=== PATIENT | female | born 1930 | race Caucasian/White ===

== ENCOUNTER 2016-04-07 11:59 | Inpatient (IN) | payer BC ==
[2016-04-07 12:10] VITALS: BMI 30.4
--- NOTE | 2016-04-07 12:56 | PDOC ---
History of Present Illness - General History Source: Patient Exam Limitations: No Limitations - History of Present Illness Initial Comments: 04/07/16 17:47 The patient is an 86-year-old female with a significant past medical history of atrial fibrillation(on Eliquis), breast cancer(1999), spinal stenosis, rheumatoid arthritis(on Prednisone), hypertension, hypothyroidism, wei's palsy , depression and anxiety who presents to the emergency department with dyspnea on exertion. She states that she recently started to feel more SOB and notes that simple activities such as getting dressed leaves her breathless. She states that she did 3 nebulizer treatments at home which alleviate her SOB. Daughter states that she contacted PCP office that prompted her to present to the ED. She also reports mild facial swelling and leg swelling which is new for her. She also reports urinary frequency. As per daughter, the patient was recently admitted to [facility] for 10 day admission for pneumonia and was discharged 1/2 on few days of abx and has been on a steroid taper, currently on 5mg of prednisone. She states that the patient was taken of Adderall and Lorazepam ( night dose) by psychiatrist because the patient was complaining of dizziness. She denies fever, chills, nausea, vomiting, diarrhea, hematochezia and constipation. She denies chest pain or orthopnea. She denies dysuria, urgency or hematuria. Allergies: Sulfa and Penicillin PCP: Dr. Beatriz Simms [facility] - Dr. Briones <Vicki Glaser - Last Filed: 04/07/16 17:47> <Irving Martínez - Last Filed: 04/07/16 18:52> - General Chief Complaint: Shortness of Breath Stated Complaint: SOB Time Seen by Provider: 04/07/16 12:19 Past History <Vicki Glaser - Last Filed: 04/07/16 17:47> - Past Medical History Anemia: Yes Asthma: Yes Cancer: Yes (LEFT BREAST) Cardiac Disorders: Yes (ATRIAL FIBRILLATION) CVA: No CHF: Yes (HX.SOB) Dementia: No Diabetes: No GI Disorders: Yes Disorders: No HTN: Yes Hypercholesterolemia: Yes Liver Disease: No Seizures: No Thyroid Disease: Yes - Surgical History Abdominal Surgery: Yes (HERNIA) Appendectomy: No Cardiac Surgery: Yes (CARDIAC CATHERIZATION-5/12) Cholecystectomy: No Lung Surgery: No Neurologic Surgery: No Orthopedic Surgery: No - Immunization History Immunization Up to Date: Yes - Psycho/Social/Smoking Cessation Hx Anxiety: Yes Suicidal Ideation: No Smoking Status: No Smoking History: Never smoked Number of Cigarettes Smoked Daily: 0 Hx Alcohol Use: No Drug/Substance Use Hx: No Substance Use Type: None Hx Substance Use Treatment: No <Irving Martínez - Last Filed: 04/07/16 18:52> - Past Medical History Allergies/Adverse Reactions: Allergies Allergy/AdvReac Type Severity Reaction Status Date / Time Penicillins Allergy Verified 04/07/16 12:07 Sulfa (Sulfonamide Allergy Rash Verified 04/07/16 12:07 Antibiotics) [Sulfa(Sulfonamide Antibiotics)] Home Medications: Ambulatory Orders Escitalopram Oxalate [Lexapro -] 10 mg PO DAILY 07/20/11 Lorazepam [Ativan] 1 mg PO BID 07/20/11 Ranitidine HCl [Zantac] 300 mg PO HS 07/20/11 Apixaban [Eliquis] 2.5 mg PO BID 06/04/15 Folic Acid 1 mg PO DAILY 06/04/15 Gabapentin [Neurontin -] 300 mg PO Q8H 06/04/15 Omeprazole [Prilosec] 20 mg PO DAILY 06/04/15 Levothyroxine [Synthroid -] 175 mcg PO DAILY@0700 tablet 06/06/15 Zolpidem Tartrate [Ambien] 5 mg PO HS PRN #0 tablet MDD 5 mg 06/06/15 Cholecalciferol (Vitamin D3) [Vitamin D3] 2,000 unit PO DAILY 02/19/16 Prednisone [Deltasone -] 5 mg PO DAILY 02/19/16 Nebivolol [Bystolic -] 5 mg PO DAILY #90 tab 02/28/16 Review of Systems - Review of Systems Able to Perform ROS?: Yes Comments:: 04/07/16 17:48 CONSTITUTIONAL: No reported: Fever, Chills, Diaphoresis, Generalized Weakness, Malaise, Loss of Appetite HEENT: No reported: Rhinorrhea, Nasal Congestion, Throat Pain, Throat Swelling, Difficulty Swallowing, Mouth Swelling, Ear Pain, Eye Pain, Visual Changes CARDIOVASCULAR: No reported: Chest Pain, Syncope, Palpitations, Irregular Heart Rate, Lightheadedness, Peripheral Edema RESPIRATORY: Reported: dyspnea on exertion, SOB, cough No reported: Orthopnea, Wheezing, Stridor, Hemoptysis GASTROINTESTINAL: No reported: Abdominal pain, Abdominal Distension, Nausea, Vomiting, Diarrhea, Constipation, Melena, Hematochezia GENITOURINARY: No reported: Dysuria, Frequency, Urgency, Hesitancy, Flank Pain, Genital Pain MUSCULOSKELETAL: No reported: Myalgia, Arthralgia, Joint Swelling, Back pain, Neck Pain SKIN: No reported: Rash, Itching, Pallor HEMEATOLOGIC/IMMUNOLOGIC: No reported: Easy Bleeding, Easy Bruising, Lymphadenopathy, Frequent infections ENDOCRINE: No reported: Unexplained Weight Gain, Unexplained Weight Loss, Heat Intolerance , Cold Intolerance NEUROLOGIC: No reported: Headache, Focal Weakness, Paresthesias, Vertigo, Lightheadedness, Unsteady Gait, Seizure, Mental Status Changes, Incontinence PSYCHIATRIC: No reported: Anxiety, Depression <Vicki Glaser - Last Filed: 04/07/16 17:47> *Physical Exam - Vital Signs Last Vital Signs Temp Pulse Resp BP Pulse Ox 98.2 F 94 H 22 149/75 98 04/07/16 12:07 04/07/16 12:07 04/07/16 12:07 04/07/16 12:04/07/16 12:21 - Physical Exam Comments: 04/07/16 17:48 GENERAL: The patient is awake, alert, and fully oriented, Nontoxic - in no acute distress. HEAD: Normocephalic, atraumatic. EYES: extraocular movements intact, sclera anicteric, conjunctiva clear. ENT: Normal voice, Moist mucous membranes. NECK: Normal range of motion, supple LUNGS: +scant crackles at the left base. Breath sounds equal, clear to auscultation bilaterally. No wheezes, no rhonchi, no rales. HEART: Regular rate and rhythm, without murmur, rub or gallop. ABDOMEN: Soft, nontender, normoactive bowel sounds. No guarding, no rebound.No CVA tenderness EXTREMITIES:+ 1+ pitting edema, no calf tenderness. Normal range of motion. No clubbing or cyanosis. No cords, erythema, or tenderness. NEUROLOGICAL: No facial asymmetry, Normal speech, PSYCH: Normal mood, normal affect. SKIN: Warm, Dry, normal turgor, <Vicki Glaser - Last Filed: 04/07/16 17:47> - Vital Signs Last Vital Signs Temp Pulse Resp BP Pulse Ox 98.2 F 94 H 22 149/75 98 04/07/16 12:07 04/07/16 12:07 04/07/16 12:07 04/07/16 12:07 04/07/16 12:21 <Irving Martínez - Last Filed: 04/07/16 18:52> Heart Score/ECG Review - ECG Impressions Comment:: 04/07/16 18:51 Twelve-lead EKG was performed and reviewed by me. Irregularly irregular Rate of [address]-T wave abnormality <Irving Martínez - Last Filed: 04/07/16 18:52> ED Treatment Course - LABORATORY CBC & Chemistry Diagram: 04/07/16 13:00 04/07/16 13:00 - ADDITIONAL ORDERS Additional order review: Laboratory Results 04/07/16 04/07/16 04/07/16 13:30 13:09 13:00 INR VBG pH 7.34 POC VBG pCO2 49.4 POC VBG pO2 74.7 H Sodium Potassium Chloride Carbon Dioxide Anion Gap BUN Creatinine Creat Clearance w eGFR Random Glucose Calcium Total Bilirubin AST ALT Alkaline Phosphatase Creatine Kinase Troponin I B-Natriuretic Peptide 1681.45 H Total Protein Albumin Urine Color Straw Urine Appearance Clear Urine pH 6.0 Ur Specific [place] 1.006 Urine Protein Negative Urine Glucose (UA) Negative Urine Ketones Negative Urine Blood Negative Urine Nitrite Negative Urine Bilirubin Negative Urine Urobilinogen Negative Ur Leukocyte Esterase Negative 04/07/16 04/07/16 13:00 13:00 INR 1.31 H VBG pH POC VBG pCO2 POC VBG pO2 Sodium 142 Potassium 4.1 Chloride 104 Carbon Dioxide 28 Anion Gap 10 BUN 18 D Creatinine 0.9 Creat Clearance w eGFR 59.09 Random Glucose 117 H D Calcium 8.9 Total Bilirubin 0.4 D AST 42 H D ALT 51 D Alkaline Phosphatase 98 D Creatine Kinase 41 Troponin I < 0.02 B-Natriuretic Peptide Total Protein 6.6 Albumin 3.6 D Urine Color Urine Appearance Urine pH Ur Specific [place] Urine Protein Urine Glucose (UA) Urine Ketones Urine Blood Urine Nitrite Urine Bilirubin Urine Urobilinogen Ur Leukocyte Esterase 04/07/16 13:00 RBC 3.48 L MCV 87.1 MCHC 31.5 L RDW 20.3 H D MPV 9.4 Neutrophils % 88.7 H Lymphocytes % 4.8 L D Monocytes % 6.0 Eosinophils % 0.2 Basophils % 0.3 <Vicki Glaser - Last Filed: 04/07/16 17:47> - LABORATORY CBC & Chemistry Diagram: 04/07/16 13:00 04/07/16 13:00 <Irving Martínez - Last Filed: 04/07/16 18:52> Medical Decision Making - Medical Decision Making 04/07/16 14:24 A call was placed to Dr. Simms at her office. Case was discussed. <Vicki Glaser - Last Filed: 04/07/16 17:47> - Medical Decision Making 04/07/16 13:16 86y afib on eliquis, breast ca, spinal stenosis, rheumatoid arthritis, hypertension, hypthyroidism sent to the ED for evaluation ALDRIDGE for the past several weeks by PMD. The pt denies any chest pain, fever/chills, increased cough, abd pain, new back pain. Pts exam only noteable for mild rales at the R base. vitals wnl differential includes chf, arrhtmia, anemia, acs, occult infection will ck labs, cxr, vbg, ua, ekg will reassess PMD: dr. simms, Cards: Dr. Briones A portion of this note was documented by scribe services under my direction. I have reviewed the details of the note, within reason, and agree with the documentation with the following case summary and management plan written by me 04/07/16 15:21 labs reviewed cxr unremarakble for acute changes case d/w in detailed with dr. Simms - she feels the pts symptoms likely secondary to titrating her steroids down too quickly. would increase her steroids up to 40mg daily, increasing her albuterol to TID, continuing her advair and starting lasix 20mg 3x a week. Dr. simms states the pt is pending fu with pulm for PFTs. If pt feeling improved, she can be discharged and she will follow up with her on tomorrow or wednesday04/07/16 16:48 pt still feeling fairly tachypneic at rest. will keep for aldridge/sob and pulm consultation will give another neb will update dr. simms and will admit to dr. prince's service. 04/07/16 17:09 case was d/w dr. prince agreed with admission Case discussed in detail with admitting physician including history, physical exam and ancillary studies. Admitting physician has assumed care for the patient, will follow all pending diagnostics and will complete the evaluation and treatment. <Irving Martínez - Last Filed: 04/07/16 18:52> *DC/Admit/Observation/Transfer - Attestations Scribe Attestion: 04/07/16 17:48 Documentation prepared by RICCARDO Schrader, acting as medical communication specialist for Irving Martínez MD. <Vicki Glaser - Last Filed: 04/07/16 17:47> - Discharge Dispostion Admit: Yes <Irving Martíenz - Last Filed: 04/07/16 18:52> Diagnosis at time of Disposition: Shortness of breath, ALDRIDGE (dyspnea on exertion) - Discharge Dispostion Condition at time of disposition: Guarded - Referrals
[2016-04-07 13:11] LABS: VENOUS BLOOD GAS HCO3 25.8 meq/L (22-29); VENOUS PH 7.34 (7.31-7.41)
[2016-04-07 13:18] LABS: BASOPHIL 0.3 % (0-2.0); EOSINOPHIL 0.2 % (0-4.5); MCH 27.4 pg (25.7-33.7); MCHC 31.5 g/dl (32.0-36.0); MEAN CELL VOLUME 87.1 fl (80-96); MEAN PLT VOLUME 9.4 fl (7.5-11.1); NEUTROPHILS 88.7 % (42.8-82.8); PLATELET COUNT 212 K/MM3 (134-434); RDW 20.3 % (11.6-15.6); WHITE BLOOD COUNT 10.7 K/mm3 (4.0-10.0)
[2016-04-07 13:39] LABS: ALBUMIN 3.6 g/dl (3.4-5.0); ANION GAP 10 (8-16); CALCIUM 8.9 mg/dL (8.5-10.1); CO2 28 mmol/L (21-32); GLUCOSE,RANDOM 117 mg/dL (74-106)
[2016-04-07 13:44] LABS: ALK PHOS 98 U/L (45-117); BILIRUBIN,TOTAL 0.4 mg/dL (0.2-1.0); CREATININE 0.9 mg/dL (0.55-1.02); SGOT/AST 42 U/L (15-37); SGPT/ALT 51 U/L (12-78); TOT PROT 6.6 g/dl (6.4-8.2); TROPONIN I < 0.02 ng/ml (0.00-0.05)
[2016-04-07 13:47] LABS: URINE APPEARANCE CLEAR; URINE BILIRUBIN NEGATIVE (NEGATIVE); URINE BLOOD NEGATIVE (NEGATIVE); URINE COLOR STRAW; URINE GLUCOSE (UA) NEGATIVE (NEGATIVE); URINE KETONE NEGATIVE (NEGATIVE); URINE LEUK ESTERASE NEGATIVE (NEGATIVE); URINE NITRITE NEGATIVE (NEGATIVE); URINE PROTEIN NEGATIVE (NEGATIVE); URINE UROBILINOGEN NEGATIVE E.U./dl (0.2-1.0)
[2016-04-07 14:00] LABS: INR 1.31 (0.82-1.09); PROTHROMBIN TIME (PATIENT) 14.5 SEC (9.98-11.88)
[2016-04-07 14:39] LABS: THYROID STIMULATING HORMONE 0.59 uIU/ml (0.358-3.74)
--- NOTE | 2016-04-07 15:02 | EKG ---
Test Reason : Blood Pressure : / mmHG Vent. Rate : 087 BPM Atrial Rate : 159 BPM P-R Int : 000 ms QRS Dur : 068 ms QT Int : 370 ms P-R-T Axes : 000 045 -09 degrees QTc Int : 445 ms ATRIAL FIBRILLATION NONSPECIFIC ST AND T WAVE ABNORMALITY ABNORMAL ECG WHEN COMPARED WITH ECG OF 19-FEB-2016 11:48, ATRIAL FIBRILLATION HAS REPLACED SINUS RHYTHM CLINICAL CORRELATION IS RECOMMENDED Confirmed by YOVANY GRIFFITHS, SERENITY ([id number]) on 04/07/2016 3:02:22 PM Referred By: Confirmed By:SERENITY PEDROZA MD
[2016-04-07] MEDS ORDERED: methylPREDNISolone NA SUCC 125 MG/2 ML VIAL IVPB ONE (15:18)
[2016-04-07] MEDS ORDERED: methylPREDNISolone NA SUCC 125 MG/2 ML VIAL ONE (15:19)
[2016-04-07] MEDS ORDERED: ALBUTEROL SO4 2.5/IPRATROPIUM 0.5 INH SOL 3 ML VIAL.NEB. NEB ONE (16:48)
[2016-04-07] MEDS ORDERED: LORazepam 1 MG TABLET PO PRN (18:04)
--- NOTE | 2016-04-07 22:15 | HP ---
Admitting History and Physical - Primary Care Physician PCP: Jessica Newsome S - Admission Chief Complaint: SOB DU History of Present Illness: The patient is an 86-year-old female with a significant past medical history of atrial fibrillation(on Eliquis), breast cancer(1999), spinal stenosis, rheumatoid arthritis(on Prednisone), hypertension, hypothyroidism, wei's palsy , depression and anxiety who presents to the emergency department with dyspnea on exertion. She states that she recently started to feel more SOB and notes that simple activities such as getting dressed leaves her breathless. She states that she did 3 nebulizer treatments at home which alleviate her SOB. Daughter states that she contacted PCP office that prompted her to present to the ED. She also reports mild facial swelling and leg swelling which is new for her. She also reports urinary frequency. As per daughter, the patient was recently admitted to [facility] for 10 day admission for pneumonia and was discharged 1/2 on few days of abx and has been on a steroid taper, currently on 5mg of prednisone. She states that the patient was taken off Adderall and Lorazepam ( night dose) by psychiatrist because the patient was complaining of dizziness. She denies fever, chills, nausea, vomiting, diarrhea, hematochezia and constipation. She denies chest pain or orthopnea. She denies dysuria, urgency or hematuria. Allergies: Sulfa and Penicillin PCP: Dr. Beatriz Simms History Source: Patient, Family Member, Medical Record Limitations to Obtaining History: No Limitations - Past Medical History Cardiovascular: Yes: AFIB, CAD, HTN, Hyperlipdemia Heme/Onc: Yes: Cancer Psych: Yes: Anxiety, Depression, Other (insomnia) Musculoskeletal: Yes: Osteoarthritis Rheumatology: Yes: Rheumatoid Arthritis Endocrine: Yes: Diabetes Mellitus - Smoking History Smoking history: Never smoked Aproximately how many cigarettes per day: 0 - Alcohol/Substance Use Hx Alcohol Use: No History of Substance Use: reports: None - Social History Usual Living Arrangement: Yes: With Child ADL: Independent History of Recent Travel: No Home Medications - Allergies Allergies/Adverse Reactions: Allergies Allergy/AdvReac Type Severity Reaction Status Date / Time Penicillins Allergy Verified 04/07/16 12:07 Sulfa (Sulfonamide Allergy Rash Verified 04/07/16 12:07 Antibiotics) [Sulfa(Sulfonamide Antibiotics)] - Home Medications Home Medications: Ambulatory Orders Escitalopram Oxalate [Lexapro -] 10 mg PO DAILY 07/20/11 Lorazepam [Ativan] 1 mg PO BID 07/20/11 Ranitidine HCl [Zantac] 300 mg PO HS 07/20/11 Apixaban [Eliquis] 2.5 mg PO BID 06/04/15 Folic Acid 1 mg PO DAILY 06/04/15 Gabapentin [Neurontin -] 300 mg PO Q8H 06/04/15 Omeprazole [Prilosec] 20 mg PO DAILY 06/04/15 Levothyroxine [Synthroid -] 175 mcg PO DAILY@0700 tablet 06/06/15 Zolpidem Tartrate [Ambien] 5 mg PO HS PRN #0 tablet MDD 5 mg 06/06/15 Cholecalciferol (Vitamin D3) [Vitamin D3] 2,000 unit PO DAILY 02/19/16 Prednisone [Deltasone -] 5 mg PO DAILY 02/19/16 Nebivolol [Bystolic -] 5 mg PO DAILY #90 tab 02/28/16 Family Disease History - Family Disease History Family Disease History: Heart Disease: Father Review of Systems - Review of Systems Constitutional: denies: Chills, Fever, Lethargy Eyes: denies: Blind Spots, Blurred Vision, Double Vision HENT: denies: Ear Pain Neck: denies: Stiffness, Tenderness Cardiovascular: reports: Shortness of Breath. denies: Chest Pain, Edema, Palpitations Respiratory: reports: Cough (occasional dry), Exercise Intolerance, SOB, SOB on Exertion. denies: Orthopnea, PND, Wheezing Gastrointestinal: denies: Abdominal Pain, Bloating, Constipation, Diarrhea, Vomiting Genitourinary: denies: Discharge, Dysuria, Flank Pain Musculoskeletal: denies: Back Pain, Extremity Pain Integumentary: denies: Pallor, Pruritis Neurological: reports: Dizziness (occasional), Unsteady Gait. denies: Change in LOC, Change in Speech, Confusion, Headache, Seizure, Syncope Hematology/Lymphatic: denies: Easily Bruised, Excessive Bleeding Psychiatric: reports: Altered Sleep Pattern, Anxiety. denies: Depression, Suicidal Physical Examination Vital Signs: Vital Signs Temperature 98.2 F 04/07/16 22:11 Pulse Rate 92 H 04/07/16 19:01 Respiratory Rate 18 04/07/16 22:11 Blood Pressure 148/91 04/07/16 22:11 O2 Sat by Pulse Oximetry (%) 98 04/07/16 19:01 Findings/Remarks: daughter at bedside Constitutional: Yes: No Distress, Calm Eyes: Yes: Conjunctiva Clear HENT: Yes: Atraumatic Neck: Yes: Supple Cardiovascular: Yes: Regular Rate and Rhythm Respiratory: Yes: CTA Bilaterally Gastrointestinal: Yes: Soft. No: Distention, Tenderness Renal/: No: CVA Tenderness - Left, CVA Tenderness - Right Musculoskeletal: No: Joint Stiffness, Joint Swelling Extremities: No: Cold, Cool, Cyanosis Edema: No Peripheral Pulses WNL: Yes Integumentary: No: Rash, Venous Stasis Changes Neurological: Yes: WNL, Alert, Oriented ...Motor Strength: WNL Psychiatric: Yes: WNL, Alert, Oriented. No: Agitated, Suicidal Ideation Imaging - Results Chest X-ray: Report Reviewed Assessment/Plan The patient is an 86-year-old female with a significant past medical history of atrial fibrillation(on Eliquis), breast cancer(1999), spinal stenosis, rheumatoid arthritis(on Prednisone), hypertension, hypothyroidism, wei's palsy , depression and anxiety who presents to the emergency department with dyspnea on exertion. s/p recent PNA improved with IV ATB and nebs in ER no signs of CHF or fluid overload on exam or CXR IV steroids, nebs cardiology and pulmonary eval falls DVT PFX might need home O2 d/w pt and daughter, d/w pt's PCP solo [place]
[2016-04-07] MEDS: GABAPENTIN 300 MG CAPSULE (FP) PO SCH (22:17)
[2016-04-07] MEDS: RANITIDINE HCL 150 MG TABLET (FP) PO SCH (22:17)
[2016-04-07] MEDS: APIXABAN 2.5 MG TABLET PO SCH (22:17)
[2016-04-07] MEDS: methylPREDNISolone NA SUCC 40 MG/1 ML VIAL IVPB SCH (22:17)
[2016-04-07] MEDS: ZOLPIDEM TARTRATE 5 MG TABLET PO PRN (22:20)
[2016-04-07] MEDS: ALBUTEROL SO4 0.083% IH SOL 2.5 MG/3 ML VIAL.NEB. NEB PRN (23:21)
[2016-04-08] MEDS: methylPREDNISolone NA SUCC 40 MG/1 ML VIAL IVPB SCH ×4 (02:38→21:45)
[2016-04-08] MEDS ORDERED: LEVOTHYROXINE NA 75 MCG TABLET (FP) ONE (05:55)
[2016-04-08] MEDS ORDERED: LEVOTHYROXINE NA 100 MCG TABLET (FP) ONE (05:55)
[2016-04-08] MEDS: ALBUTEROL SO4 0.083% IH SOL 2.5 MG/3 ML VIAL.NEB. NEB PRN ×3 (06:00→22:07)
[2016-04-08] MEDS: LEVOTHYROXINE 75 MCG, LEVOTHYROXINE 100 MCG PO SCH (06:02)
[2016-04-08] MEDS: GABAPENTIN 300 MG CAPSULE (FP) PO SCH ×3 (06:02→21:46)
[2016-04-08 06:58] LABS: BASOPHIL 0.8 % (0-2.0); MCH 27.5 pg (25.7-33.7); MCHC 31.6 g/dl (32.0-36.0); MEAN PLT VOLUME 9.6 fl (7.5-11.1); NEUTROPHILS 92.1 % (42.8-82.8); PLATELET COUNT 241 K/MM3 (134-434); RDW 19.9 % (11.6-15.6); WHITE BLOOD COUNT 7.1 K/mm3 (4.0-10.0)
[2016-04-08] MEDS ORDERED: LEVOTHYROXINE NA 100 MCG TABLET (FP) PO SCH (07:00)
[2016-04-08 07:02] LABS: ALBUMIN 3.6 g/dl (3.4-5.0)
[2016-04-08 07:03] LABS: BILIRUBIN,TOTAL 0.4 mg/dL (0.2-1.0); TOT PROT 6.6 g/dl (6.4-8.2)
[2016-04-08] MEDS ORDERED: PT OWN MED DRAWER 7, Y5N ONE ×2 (08:59→21:40)
[2016-04-08] MEDS: APIXABAN 2.5 MG TABLET PO SCH ×2 (09:05→21:46)
[2016-04-08] MEDS: PANTOPRAZOLE 20 MG TABLET (FP) PO SCH (09:05)
[2016-04-08] MEDS: CHOLECALCIFEROL (VITAMIN D3) 1,000 UNIT TABLET (FP) PO SCH (09:05)
[2016-04-08] MEDS: ESCITALOPRAM OXALATE 10 MG TABLET (FP) PO SCH (09:05)
[2016-04-08] MEDS: FOLIC ACID 1 MG TABLET (FP) PO SCH (09:05)
--- NOTE | 2016-04-08 10:15 | PN ---
Progress Note, Physician History of Present Illness: Pt is breathing bbetter than yesterday ( less DU, cough). Pt. w/o CP, palp., dizziness, abd pain. - Current Medication List Current Medications: Active Medications Albuterol Sulfate (Ventolin 0.083% Nebulizer Soln -) 1 amp NEB Q6H PRN PRN Reason: SHORT OF BREATH/WHEEZING Last Admin: 04/08/16 06:00 Dose: 1 amp Apixaban (Eliquis -) 2.5 mg PO BID [facility] Last Admin: 04/08/16 09:05 Dose: 2.5 mg Cholecalciferol (Vitamin D3 -) 2,000 unit PO DAILY [facility] Last Admin: 04/08/16 09:05 Dose: 2,000 unit Escitalopram Oxalate (Lexapro -) 10 mg PO DAILY [facility] Last Admin: 04/08/16 09:05 Dose: 10 mg Folic Acid (Folic Acid -) 1 mg PO DAILY [facility] Last Admin: 04/08/16 09:05 Dose: 1 mg Gabapentin (Neurontin -) 300 mg PO TID [facility] Last Admin: 04/08/16 06:02 Dose: 300 mg Levothyroxine Sodium 75 mcg/ (Levothyroxine Sodium 100 mcg) 175 mcg PO DAILY@ 0700 [facility] Last Admin: 04/08/16 06:02 Dose: 175 mcg Lorazepam (Ativan -) 1 mg PO BID PRN PRN Reason: ANXIETY Methylprednisolone Sodium Succinate (Solu-Medrol -) 40 mg IVPB Q6H-IV [facility] Last Admin: 04/08/16 09:06 Dose: 40 mg Nebivolol (Bystolic -) 5 mg PO DAILY [facility] Pantoprazole Sodium (Protonix -) 20 mg PO DAILY [facility] Last Admin: 04/08/16 09:05 Dose: 20 mg Ranitidine HCl (Zantac -) 300 mg PO HS [facility] Last Admin: 04/07/16 22:17 Dose: 300 mg Zolpidem Tartrate (Ambien -) 5 mg PO HS PRN PRN Reason: INSOMNIA Last Admin: 04/07/16 22:20 Dose: 5 mg - Objective Vital Signs: Vital Signs Temperature 98.3 F 04/08/16 05:59 Pulse Rate 111 H 04/08/16 09:42 Respiratory Rate 16 04/08/16 05:59 Blood Pressure 160/89 04/08/16 05:59 O2 Sat by Pulse Oximetry (%) 97 04/08/16 09:42 Constitutional: Yes: No Distress, Calm Neck: Yes: Supple Cardiovascular: Yes: Regular Rate and Rhythm, S1, S2 Respiratory: Yes: Regular, Rales Gastrointestinal: Yes: Normal Bowel Sounds, Soft. No: Tenderness Neurological: Yes: Alert, Oriented Labs: CBC, BMP 04/08/16 05:35 04/08/16 05:35 INR, PTT INR 1.31 (0.82-1.09) H 04/07/16 13:00 Problem List - Problems (1) Acute bronchitis with COPD Assessment/Plan: on IV steroids Pulmonary consult Code(s): J44.0 - CHRONIC OBSTRUCTIVE PULMON DISEASE W ACUTE LOWER RESP INFCT (2) CAD (coronary artery disease) Assessment/Plan: Pt. with elevated BNP. Last ECHO report was reviewed, normal LV function; Probable Diastolic Heart failure Cardio consult for further eval.. Code(s): I25.10 - ATHSCL HEART DISEASE OF [place] CORONARY ARTERY W/O ANG PCTRS (3) A-fib Assessment/Plan: on AC Code(s): I48.91 - UNSPECIFIED ATRIAL FIBRILLATION (4) Hypertension Assessment/Plan: cont. current meds Code(s): I10 - ESSENTIAL (PRIMARY) HYPERTENSION Qualifiers: Hypertension type: essential hypertension Qualified Code(s): I10 - Essential (primary) hypertension (5) Pulmonary hypertension Code(s): I27.2 - OTHER SECONDARY PULMONARY HYPERTENSION (6) Anemia Assessment/Plan: Chronic Probable of chronic disease- RA; to f/u Iron studies Code(s): D64.9 - ANEMIA, UNSPECIFIED (7) Rheumatoid arthritis Assessment/Plan: On chronic Prednisone ( 5 mg daily) Code(s): M06.9 - RHEUMATOID ARTHRITIS, UNSPECIFIED Qualifiers: Rheumatoid arthritis location: unspecified site Assessment/Plan AM labs
[2016-04-08] MEDS: NEBIVOLOL 5 MG TABLET (FP) PO SCH (10:59)
--- NOTE | 2016-04-08 12:31 | CON.CARD ---
Consult Consult Specialty:: Cardiology Referred by:: Jaiden Newsome MD Reason for Consultation:: Dyspnea - History of Present Illness Chief Complaint: Dyspnea History of Present Illness: The patient is a 86-year old, with significant past medical history of paroxysmal Afib on NOAC, Breast Ca (1999), Spinal Stenosis, RA, Gastritis, HTN, hypothyroidism, and anxiety who presented with light-headedness exacerbated by bending over, gait instabilty and mechanical falls all since resolved, she denies chest pain, near or true syncope, palpitations, orthopnea, PND or LE edema. - Past Medical History Cardio/Vascular: Yes: AFIB, CAD, HTN, Hyperlipdemia ...: No Psych: Yes: Anxiety, Depression, Other (insomnia) Musculoskeletal: Yes: Osteoarthritis Rheumatology: Yes: Rheumatoid Arthritis Endocrine: Yes: Diabetes Mellitus - Alcohol/Substance Use Hx Alcohol Use: No History of Substance Use: reports: None - Smoking History Smoking history: Never smoked Have you smoked in the past 12 months: No Aproximately how many cigarettes per day: 0 - Social History ADL: Independent History of Recent Travel: No Home Medications - Allergies Allergies/Adverse Reactions: Allergies Allergy/AdvReac Type Severity Reaction Status Date / Time Penicillins Allergy Verified 04/07/16 12:07 Sulfa (Sulfonamide Allergy Rash Verified 04/07/16 12:07 Antibiotics) [Sulfa(Sulfonamide Antibiotics)] - Home Medications Home Medications: Ambulatory Orders Escitalopram Oxalate [Lexapro -] 10 mg PO DAILY 07/20/11 Lorazepam [Ativan] 1 mg PO BID 07/20/11 Ranitidine HCl [Zantac] 300 mg PO HS 07/20/11 Apixaban [Eliquis] 2.5 mg PO BID 06/04/15 Folic Acid 1 mg PO DAILY 06/04/15 Gabapentin [Neurontin -] 300 mg PO Q8H 06/04/15 Omeprazole [Prilosec] 20 mg PO DAILY 06/04/15 Levothyroxine [Synthroid -] 175 mcg PO DAILY@0700 tablet 06/06/15 Zolpidem Tartrate [Ambien] 5 mg PO HS PRN #0 tablet MDD 5 mg 06/06/15 Cholecalciferol (Vitamin D3) [Vitamin D3] 2,000 unit PO DAILY 02/19/16 Prednisone [Deltasone -] 5 mg PO DAILY 02/19/16 Nebivolol [Bystolic -] 5 mg PO DAILY #90 tab 02/28/16 Family Disease History - Family Disease History Family Disease History: Heart Disease: Father Review of Systems - Review of Systems Cardiovascular: reports: Shortness of Breath Vital Signs: Vital Signs Temperature 98.3 F 04/08/16 05:59 Pulse Rate 111 H 04/08/16 09:42 Respiratory Rate 16 04/08/16 05:59 Blood Pressure 160/89 04/08/16 05:59 O2 Sat by Pulse Oximetry (%) 97 04/08/16 09:42 Constitutional: Yes: No Distress, Calm Neck: Yes: Supple Respiratory: Yes: Regular, Diminished, On Nasal O2 Gastrointestinal: Yes: Normal Bowel Sounds, Soft, Abdomen, Obese Cardiovascular: Yes: Pulse Irregular JVD: No Carotid Bruit: No Heart Sounds: Yes: S1, S2 Murmur: Yes: Systolic Murmur, Grade 1 Edema: No - Other Data Labs, Other Data: CBC, BMP 04/08/16 05:35 04/08/16 05:35 INR, PTT INR 1.31 (0.82-1.09) H 04/07/16 13:00 Afib c/w previous 12/10/15, now in afib Ejection Fraction %: LVEF > or = 40 % Imaging - Results Chest X-ray: Report Reviewed (Right mid lung ATX) Cat Scan: Report Reviewed (Improved RUL PNA) Problem List - Problems (1) Acute bronchitis with COPD Code(s): J44.0 - CHRONIC OBSTRUCTIVE PULMON DISEASE W ACUTE LOWER RESP INFCT (2) Shortness of breath Code(s): R06.02 - SHORTNESS OF BREATH (3) A-fib Code(s): I48.91 - UNSPECIFIED ATRIAL FIBRILLATION Qualifiers: Atrial fibrillation type: persistent Qualified Code(s): I48.1 - Persistent atrial fibrillation (4) Hypertension Code(s): I10 - ESSENTIAL (PRIMARY) HYPERTENSION Qualifiers: Hypertension type: essential hypertension Qualified Code(s): I10 - Essential (primary) hypertension (5) Hypothyroidism Code(s): E03.9 - HYPOTHYROIDISM, UNSPECIFIED Qualifiers: Hypothyroidism type: unspecified Qualified Code(s): E03.9 - Hypothyroidism, unspecified (6) Rheumatoid arthritis Code(s): M06.9 - RHEUMATOID ARTHRITIS, UNSPECIFIED Qualifiers: Rheumatoid arthritis location: unspecified site (7) Polymyalgia rheumatica Code(s): M35.3 - POLYMYALGIA RHEUMATICA Assessment/Plan 06/05/2015 Echo shows normal LV size and fxn, mod CHEKO, mod TR, mild MR, RVSP 40- 50 mmHg, 06/05/2015 Holter: SR freq PAC 1. AE COPD improving 2. Dysequilibrium, gait disturbance, orthostasis, mechanical falls referable to medication effect (ambien, ativan, amphetamine) 3. Persistent atrial fibrillation 4. Diastolic dysfunction, euvolemic 5. HTN/HCVD 6. RA maintained on MTX, prednisone 7. Spinal stenosis, compression fractures 8. Hypothyroidism 9. Anxiety P:1. BD, IV steroids, O2 as needed to maintain saO2 2. Continue Bystolic 5 qd, Eliquis 2.5 bid 3. PT, gait training, fall precautions 4. DVT and GI prophylaxis 5. Thank you for consultative opportunity
--- NOTE | 2016-04-08 13:37 | PN ---
Progress Note (short form) - Note Progress Note: PULMONARY CONSULTATION DICTATED 04/08/16 IMP ACUTE ASTHMATIC BRONCHITIS RECENT PNEUMONIA AFIB HTN PULMONARY HTN DIASTOLIC HF ANXIETY RA PLAN IV STEROIDS INHALED BRONCHODILATORS NASAL O2 ANTICOAGULATION F/U CHEST X-RAY DR QUINN Problem List - Problems (1) Acute bronchitis with COPD Code(s): J44.0 - CHRONIC OBSTRUCTIVE PULMON DISEASE W ACUTE LOWER RESP INFCT (2) Anemia Code(s): D64.9 - ANEMIA, UNSPECIFIED (3) CAD (coronary artery disease) Code(s): I25.10 - ATHSCL HEART DISEASE OF [place] CORONARY ARTERY W/O ANG PCTRS Qualifiers: Coronary Disease-Associated Artery/Lesion type: [place] artery [place] vs. transplanted heart: [place] heart Associated angina: without angina Qualified Code(s): I25.10 - Atherosclerotic heart disease of [place] coronary artery without angina pectoris (4) DU (dyspnea on exertion) Code(s): R06.09 - OTHER FORMS OF DYSPNEA (5) Pulmonary hypertension Code(s): I27.2 - OTHER SECONDARY PULMONARY HYPERTENSION (6) Shortness of breath Code(s): R06.02 - SHORTNESS OF BREATH (7) A-fib Code(s): I48.91 - UNSPECIFIED ATRIAL FIBRILLATION Qualifiers: Atrial fibrillation type: persistent Qualified Code(s): I48.1 - Persistent atrial fibrillation (8) History of breast cancer Code(s): Z85.3 - PERSONAL HISTORY OF MALIGNANT NEOPLASM OF BREAST (9) Hypertension Code(s): I10 - ESSENTIAL (PRIMARY) HYPERTENSION Qualifiers: Hypertension type: essential hypertension Qualified Code(s): I10 - Essential (primary) hypertension (10) Rheumatoid arthritis Code(s): M06.9 - RHEUMATOID ARTHRITIS, UNSPECIFIED Qualifiers: Rheumatoid arthritis location: unspecified site (11) Asthmatic bronchitis with exacerbation Code(s): J45.901 - UNSPECIFIED ASTHMA WITH (ACUTE) EXACERBATION
--- NOTE | 2016-04-08 16:48 | CONS ---
DATE OF CONSULTATION: 04/08/2016 PULMONARY CONSULTATION REFERRING PHYSICIAN: Jessica Newsome M.D. HISTORY OF PRESENT ILLNESS: The patient is an 86-year-old white female known to me from previous hospitalizations. Past medical history includes atrial fibrillation maintained on Eliquis. Breast CA. History of spinal stenosis. Recent pneumonia in January 2016, hospitalized [facility], Rheumatoid arthritis maintained on prednisone. Hypertension. Hypothyroidism. Escalante's palsy. Depression. Anxiety. Nonsmoker. Admitted to [facility] with complaint of increasing shortness of breath and dyspnea on exertion x1 week. Patient states she started developing the above symptoms. She went to a PCP, which is why started inhaled bronchodilator and steroids with some clinical improvement. As her symptoms worsened, at which time she presented to the emergency room. Denies any chest pain, nausea, vomiting, diaphoresis, nausea, hemoptysis. She also complains of some mild facial swelling and lower extremity edema, which was new. Also complained of some urinary frequency. She denies any recent travel. There is no history of respiratory failure in the past with ventilatory support. She denies a history of asthma or COPD. PAST MEDICAL HISTORY: Again includes atrial fibrillation, breast CA, spinal stenosis, rheumatoid arthritis, hypertension, hypothyroidism, Escalante's palsy, depression/anxiety. REVIEW OF SYSTEMS: Positive cough. Positive shortness of breath. Positive wheezing. No chest pain. No palpitations. No nausea. No vomiting. No hemoptysis. CURRENT MEDICATIONS: Include Solu-Medrol 40 q.6, Eliquis, Neurontin, lexapro, Ambien, Ativan, albuterol, Bystolic, Zantac, Protonix, Levaquin, folic acid, and vitamin D3. PHYSICAL EXAMINATION: General: The patient is an elderly white female otherwise alert in no acute distress. She is currently afebrile. Vital signs: Heart rate is 104, blood pressure 136/78, respiratory rate 22, and O2 saturation is 97% on 2 L. HEENT: Head is normocephalic, atraumatic. Neck: Supple. Heart: Irregularly irregular. S1, S2. Chest: Scattered bilateral wheezes. Abdomen: Soft. Bowel sounds positive. Extremities: No cyanosis. There is 1+ edema. LABORATORY: WBC is 7.1, hemoglobin 9.6, hematocrit 30.4, platelet count of 241, 000. INR is 1.31. Chemistries: BUN 22, creatinine 11, BNP 1681. Chest x-ray reveals cardiomegaly, mildly increased markings bilaterally, residual atelectatic changes with right middle lung field. IMPRESSION: Acute asthmatic bronchitis. 2. Atrial fibrillation. 3. Hypertension, hypertensive cardiovascular disease. 4. Recent pneumonia. 5. Hypothyroidism. 6. Rheumatoid arthritis on prednisone and methotrexate. 7. Pulmonary hypertension. 8. Anxiety. PLAN: IV steroids. Inhaled bronchodilator. Supplemental O2. Continue anticoagulation as per cardiology for anticoagulation. DVT prophylaxis. LEMUEL QUINN M.D. [id number] MTDD
[2016-04-08] MEDS: TIOTROPIUM BROMIDE 18 MCG/INH (DEVICE W/ 5 CAPSULES) IH SCH (16:53)
[2016-04-08] MEDS: BUDESONIDE/FORMETEROL FUMARATE 160/4.5 mcg INHALER IH SCH ×2 (16:53→21:46)
[2016-04-08] MEDS: ZOLPIDEM TARTRATE 5 MG TABLET PO PRN (21:46)
[2016-04-08] MEDS: RANITIDINE HCL 150 MG TABLET (FP) PO SCH (21:46)
[2016-04-09] MEDS: methylPREDNISolone NA SUCC 40 MG/1 ML VIAL IVPB SCH ×3 (02:33→17:58)
[2016-04-09] MEDS ORDERED: LEVOTHYROXINE NA 75 MCG TABLET (FP) ONE (06:12)
[2016-04-09] MEDS ORDERED: LEVOTHYROXINE NA 100 MCG TABLET (FP) ONE (06:12)
[2016-04-09] MEDS: LEVOTHYROXINE 75 MCG, LEVOTHYROXINE 100 MCG PO SCH (06:14)
[2016-04-09] MEDS: GABAPENTIN 300 MG CAPSULE (FP) PO SCH ×3 (06:14→22:16)
[2016-04-09 07:34] LABS: MCH 27.3 pg (25.7-33.7); MCHC 31.5 g/dl (32.0-36.0); MEAN CELL VOLUME 86.6 fl (80-96); MEAN PLT VOLUME 9.6 fl (7.5-11.1); PLATELET COUNT 223 K/MM3 (134-434); RDW 19.8 % (11.6-15.6); WHITE BLOOD COUNT 13.2 K/mm3 (4.0-10.0)
[2016-04-09 08:03] LABS: CALCIUM 8.9 mg/dL (8.5-10.1)
[2016-04-09] MEDS ORDERED: PT OWN MED DRAWER 7, Y5N ONE (09:17)
[2016-04-09] MEDS: FOLIC ACID 1 MG TABLET (FP) PO SCH (09:29)
[2016-04-09] MEDS: BUDESONIDE/FORMETEROL FUMARATE 160/4.5 mcg INHALER IH SCH ×2 (09:29→22:23)
[2016-04-09] MEDS: APIXABAN 2.5 MG TABLET PO SCH ×2 (09:29→22:16)
[2016-04-09] MEDS: CHOLECALCIFEROL (VITAMIN D3) 1,000 UNIT TABLET (FP) PO SCH (09:29)
[2016-04-09] MEDS: PANTOPRAZOLE 20 MG TABLET (FP) PO SCH (09:29)
[2016-04-09] MEDS: NEBIVOLOL 5 MG TABLET (FP) PO SCH (09:30)
[2016-04-09] MEDS: TIOTROPIUM BROMIDE 18 MCG/INH (DEVICE W/ 5 CAPSULES) IH SCH (09:30)
[2016-04-09] MEDS: ESCITALOPRAM OXALATE 10 MG TABLET (FP) PO SCH (09:36)
--- NOTE | 2016-04-09 11:40 | PN ---
[id number], abd pain. - Current Medication List Current Medications: Active Medications Albuterol Sulfate (Ventolin 0.083% Nebulizer Soln -) 1 amp NEB Q6H PRN PRN Reason: SHORT OF BREATH/WHEEZING Last Admin: 04/08/16 22:07 Dose: 1 amp Apixaban (Eliquis -) 2.5 mg PO BID [facility] Last Admin: 04/09/16 09:29 Dose: 2.5 mg Budesonide/Formoterol Fumarate (Symbicort 160/4.5mcg -) 2 puff IH BID [facility] Last Admin: 04/09/16 09:29 Dose: 2 puff Cholecalciferol (Vitamin D3 -) 2,000 unit PO DAILY [facility] Last Admin: 04/09/16 09:29 Dose: 2,000 unit Escitalopram Oxalate (Lexapro -) 10 mg PO DAILY [facility] Last Admin: 04/09/16 09:36 Dose: 10 mg Folic Acid (Folic Acid -) 1 mg PO DAILY [facility] Last Admin: 04/09/16 09:29 Dose: 1 mg Gabapentin (Neurontin -) 300 mg PO TID [facility] Last Admin: 04/09/16 06:14 Dose: 300 mg Levothyroxine Sodium 75 mcg/ (Levothyroxine Sodium 100 mcg) 175 mcg PO DAILY@ 0700 [facility] Last Admin: 04/09/16 06:14 Dose: 175 mcg Lorazepam (Ativan -) 1 mg PO BID PRN PRN Reason: ANXIETY Methylprednisolone Sodium Succinate (Solu-Medrol -) 40 mg IVPB Q6H-IV [facility] Last Admin: 04/09/16 09:29 Dose: 40 mg Nebivolol (Bystolic -) 5 mg PO DAILY [facility] Last Admin: 04/09/16 09:30 Dose: 5 mg Pantoprazole Sodium (Protonix -) 20 mg PO DAILY [facility] Last Admin: 04/09/16 09:29 Dose: 20 mg Ranitidine HCl (Zantac -) 300 mg PO HS [facility] Last Admin: 04/08/16 21:46 Dose: 300 mg Tiotropium [place] (Spiriva -) 1 puff IH DAILY [facility] Last Admin: 04/09/16 09:30 Dose: 1 puff Zolpidem Tartrate (Ambien -) 5 mg PO HS PRN PRN Reason: INSOMNIA Last Admin: 04/08/16 21:46 Dose: 5 mg - Objective Vital Signs: Vital Signs Temperature 97.9 F 04/09/16 06:48 Pulse Rate 92 H 04/09/16 06:48 Respiratory Rate 18 04/09/16 06:48 Blood Pressure 131/87 04/09/16 06:48 O2 Sat by Pulse Oximetry (%) 97 04/08/16 21:00 Constitutional: Yes: No Distress, Calm Cardiovascular: Yes: Regular Rate and Rhythm, S1, S2 Respiratory: Yes: Regular, Wheezes (expiratory) Gastrointestinal: Yes: Normal Bowel Sounds, Soft. No: Palpable Mass, Tenderness Edema: No Labs: CBC, BMP 04/09/16 05:35 04/09/16 05:35 INR, PTT INR 1.31 (0.82-1.09) H 04/07/16 13:00 Problem List - Problems (1) Acute bronchitis with COPD Assessment/Plan: on IV steroids- nella per pulmonary Pulmonary consult appreciated Code(s): J44.0 - CHRONIC OBSTRUCTIVE PULMON DISEASE W ACUTE LOWER RESP INFCT (2) CAD (coronary artery disease) Assessment/Plan: Pt. with elevated BNP. Last ECHO report was reviewed, normal LV function; Probable Diastolic Heart failure Cardio consult for further eval.. Code(s): I25.10 - ATHSCL HEART DISEASE OF [place] CORONARY ARTERY W/O ANG PCTRS Qualifiers: Coronary Disease-Associated Artery/Lesion type: [place] artery [place] vs. transplanted heart: [place] heart Associated angina: without angina Qualified Code(s): I25.10 - Atherosclerotic heart disease of [place] coronary artery without angina pectoris (3) A-fib Assessment/Plan: on AC Code(s): I48.91 - UNSPECIFIED ATRIAL FIBRILLATION Qualifiers: Atrial fibrillation type: persistent Qualified Code(s): I48.1 - Persistent atrial fibrillation (4) Hypertension Assessment/Plan: cont. current meds Code(s): I10 - ESSENTIAL (PRIMARY) HYPERTENSION Qualifiers: Hypertension type: essential hypertension Qualified Code(s): I10 - Essential (primary) hypertension (5) Pulmonary hypertension Code(s): I27.2 - OTHER SECONDARY PULMONARY HYPERTENSION (6) Anemia Assessment/Plan: Chronic Probable of chronic disease- RA; to f/u Iron studies Code(s): D64.9 - ANEMIA, UNSPECIFIED (7) Rheumatoid arthritis Assessment/Plan: On chronic Prednisone ( 5 mg daily) Code(s): M06.9 - RHEUMATOID ARTHRITIS, UNSPECIFIED Qualifiers: Rheumatoid arthritis location: unspecified site
--- NOTE | 2016-04-09 13:17 | PN ---
Progress Note, Physician History of Present Illness: pulmonary alert,feeling better,less dyspneic - Current Medication List Current Medications: Active Medications Albuterol Sulfate (Ventolin 0.083% Nebulizer Soln -) 1 amp NEB Q6H PRN PRN Reason: SHORT OF BREATH/WHEEZING Last Admin: 04/08/16 22:07 Dose: 1 amp Apixaban (Eliquis -) 2.5 mg PO BID [facility] Last Admin: 04/09/16 09:29 Dose: 2.5 mg Budesonide/Formoterol Fumarate (Symbicort 160/4.5mcg -) 2 puff IH BID [facility] Last Admin: 04/09/16 09:29 Dose: 2 puff Cholecalciferol (Vitamin D3 -) 2,000 unit PO DAILY [facility] Last Admin: 04/09/16 09:29 Dose: 2,000 unit Escitalopram Oxalate (Lexapro -) 10 mg PO DAILY [facility] Last Admin: 04/09/16 09:36 Dose: 10 mg Folic Acid (Folic Acid -) 1 mg PO DAILY [facility] Last Admin: 04/09/16 09:29 Dose: 1 mg Gabapentin (Neurontin -) 300 mg PO TID [facility] Last Admin: 04/09/16 06:14 Dose: 300 mg Levothyroxine Sodium 75 mcg/ (Levothyroxine Sodium 100 mcg) 175 mcg PO DAILY@ 0700 [facility] Last Admin: 04/09/16 06:14 Dose: 175 mcg Lorazepam (Ativan -) 1 mg PO BID PRN PRN Reason: ANXIETY Methylprednisolone Sodium Succinate (Solu-Medrol -) 40 mg IVPB Q6H-IV [facility] Last Admin: 04/09/16 09:29 Dose: 40 mg Nebivolol (Bystolic -) 5 mg PO DAILY [facility] Last Admin: 04/09/16 09:30 Dose: 5 mg Pantoprazole Sodium (Protonix -) 20 mg PO DAILY [facility] Last Admin: 04/09/16 09:29 Dose: 20 mg Ranitidine HCl (Zantac -) 300 mg PO HS [facility] Last Admin: 04/08/16 21:46 Dose: 300 mg Tiotropium [place] (Spiriva -) 1 puff IH DAILY [facility] Last Admin: 04/09/16 09:30 Dose: 1 puff Zolpidem Tartrate (Ambien -) 5 mg PO HS PRN PRN Reason: INSOMNIA Last Admin: 04/08/16 21:46 Dose: 5 mg - Objective Vital Signs: Vital Signs Temperature 97.3 F L 04/09/16 10:00 Pulse Rate 97 H 04/09/16 10:00 Respiratory Rate 22 04/09/16 10:00 Blood Pressure 159/87 04/09/16 10:00 O2 Sat by Pulse Oximetry (%) 97 04/09/16 09:00 Constitutional: Yes: Well Nourished, Calm Eyes: Yes: WNL HENT: Yes: WNL Neck: Yes: WNL Cardiovascular: Yes: Pulse Irregular, S1, S2 Respiratory: Yes: Wheezes (scattered [place] wheezes) Gastrointestinal: Yes: Normal Bowel Sounds, Soft Extremities: Yes: WNL Edema: Yes Labs: CBC, BMP 04/09/16 05:35 04/09/16 05:35 INR, PTT INR 1.31 (0.82-1.09) H 04/07/16 13:00 Problem List - Problems (1) Acute bronchitis with COPD Code(s): J44.0 - CHRONIC OBSTRUCTIVE PULMON DISEASE W ACUTE LOWER RESP INFCT (2) Anemia Code(s): D64.9 - ANEMIA, UNSPECIFIED (3) CAD (coronary artery disease) Code(s): I25.10 - ATHSCL HEART DISEASE OF [place] CORONARY ARTERY W/O ANG PCTRS Qualifiers: Coronary Disease-Associated Artery/Lesion type: [place] artery [place] vs. transplanted heart: [place] heart Associated angina: without angina Qualified Code(s): I25.10 - Atherosclerotic heart disease of [place] coronary artery without angina pectoris (4) DU (dyspnea on exertion) Code(s): R06.09 - OTHER FORMS OF DYSPNEA (5) Pulmonary hypertension Code(s): I27.2 - OTHER SECONDARY PULMONARY HYPERTENSION (6) Shortness of breath Code(s): R06.02 - SHORTNESS OF BREATH (7) A-fib Code(s): I48.91 - UNSPECIFIED ATRIAL FIBRILLATION Qualifiers: Atrial fibrillation type: persistent Qualified Code(s): I48.1 - Persistent atrial fibrillation (8) History of breast cancer Code(s): Z85.3 - PERSONAL HISTORY OF MALIGNANT NEOPLASM OF BREAST (9) Hypertension Code(s): I10 - ESSENTIAL (PRIMARY) HYPERTENSION Qualifiers: Hypertension type: essential hypertension Qualified Code(s): I10 - Essential (primary) hypertension (10) Rheumatoid arthritis Code(s): M06.9 - RHEUMATOID ARTHRITIS, UNSPECIFIED Qualifiers: Rheumatoid arthritis location: unspecified site (11) Asthmatic bronchitis with exacerbation Code(s): J45.901 - UNSPECIFIED ASTHMA WITH (ACUTE) EXACERBATION Assessment/Plan IMP ACUTE ASTHMATIC BRONCHITIS RECENT PNEUMONIA AFIB HTN PULMONARY HTN DIASTOLIC HF ANXIETY RA PLAN TAPER STEROIDS INHALED BRONCHODILATORS NASAL O2 ANTICOAGULATION DR QUINN Problem List - Problems (1) Acute bronchitis with COPD Code(s): J44.0 - CHRONIC OBSTRUCTIVE PULMON DISEASE W ACUTE LOWER RESP INFCT (2) Anemia Code(s): D64.9 - ANEMIA, UNSPECIFIED (3) CAD (coronary artery disease) Code(s): I25.10 - ATHSCL HEART DISEASE OF [place] CORONARY ARTERY W/O ANG PCTRS Qualifiers: Coronary Disease-Associated Artery/Lesion type: [place] artery [place] vs. transplanted heart: [place] heart Associated angina: without angina Qualified Code(s): I25.10 - Atherosclerotic heart disease of [place] coronary artery without angina pectoris (4) DU (dyspnea on exertion) Code(s): R06.09 - OTHER FORMS OF DYSPNEA (5) Pulmonary hypertension Code(s): I27.2 - OTHER SECONDARY PULMONARY HYPERTENSION (6) Shortness of breath Code(s): R06.02 - SHORTNESS OF BREATH (7) A-fib Code(s): I48.91 - UNSPECIFIED ATRIAL FIBRILLATION Qualifiers: Atrial fibrillation type: persistent Qualified Code(s): I48.1 - Persistent atrial fibrillation (8) History of breast cancer Code(s): Z85.3 - PERSONAL HISTORY OF MALIGNANT NEOPLASM OF BREAST (9) Hypertension Code(s): I10 - ESSENTIAL (PRIMARY) HYPERTENSION Qualifiers: Hypertension type: essential hypertension Qualified Code(s): I10 - Essential (primary) hypertension (10) Rheumatoid arthritis Code(s): M06.9 - RHEUMATOID ARTHRITIS, UNSPECIFIED Qualifiers: Rheumatoid arthritis location: unspecified site (11) Asthmatic bronchitis with exacerbation Code(s): J45.901 - UNSPECIFIED ASTHMA WITH (ACUTE) EXACERBATION
[2016-04-09] MEDS ORDERED: amLODIPine BESYLATE 2.5 MG TABLET (FP) PO ONE (17:30)
[2016-04-09] MEDS ORDERED: amLODIPine BESYLATE 5 MG TABLET (FP) PO ONE (21:52)
[2016-04-09] MEDS: RANITIDINE HCL 150 MG TABLET (FP) PO SCH (22:16)
[2016-04-10] MEDS: methylPREDNISolone NA SUCC 40 MG/1 ML VIAL IVPB SCH ×3 (01:27→21:27)
[2016-04-10] MEDS ORDERED: LEVOTHYROXINE NA 75 MCG TABLET (FP) ONE (05:45)
[2016-04-10] MEDS ORDERED: LEVOTHYROXINE NA 100 MCG TABLET (FP) ONE (05:45)
[2016-04-10] MEDS: LEVOTHYROXINE 75 MCG, LEVOTHYROXINE 100 MCG PO SCH (06:12)
[2016-04-10] MEDS: GABAPENTIN 300 MG CAPSULE (FP) PO SCH ×3 (06:12→21:27)
[2016-04-10] MEDS ORDERED: PT OWN MED DRAWER 7, Y5N ONE ×2 (06:54→08:49)
[2016-04-10 08:05] LABS: MCH 26.8 pg (25.7-33.7); MCHC 30.8 g/dl (32.0-36.0); MEAN CELL VOLUME 86.8 fl (80-96); MEAN PLT VOLUME 9.2 fl (7.5-11.1); PLATELET COUNT 238 K/MM3 (134-434); RDW 19.3 % (11.6-15.6); WHITE BLOOD COUNT 13.8 K/mm3 (4.0-10.0)
[2016-04-10 08:24] LABS: CALCIUM 8.9 mg/dL (8.5-10.1); CREATININE 0.9 mg/dL (0.55-1.02)
[2016-04-10] MEDS: CHOLECALCIFEROL (VITAMIN D3) 1,000 UNIT TABLET (FP) PO SCH (09:29)
[2016-04-10] MEDS: FOLIC ACID 1 MG TABLET (FP) PO SCH (09:29)
[2016-04-10] MEDS: NEBIVOLOL 5 MG TABLET (FP) PO SCH (09:29)
[2016-04-10] MEDS: ESCITALOPRAM OXALATE 10 MG TABLET (FP) PO SCH (09:29)
[2016-04-10] MEDS: APIXABAN 2.5 MG TABLET PO SCH ×2 (09:30→21:26)
[2016-04-10] MEDS: PANTOPRAZOLE 20 MG TABLET (FP) PO SCH (09:37)
[2016-04-10] MEDS: BUDESONIDE/FORMETEROL FUMARATE 160/4.5 mcg INHALER IH SCH ×2 (10:10→21:41)
[2016-04-10] MEDS: TIOTROPIUM BROMIDE 18 MCG/INH (DEVICE W/ 5 CAPSULES) IH SCH (10:11)
--- NOTE | 2016-04-10 11:45 | PN ---
Progress Note, Physician History of Present Illness: Dyspnea, wheezes resolving. - Current Medication List Current Medications: Active Medications Albuterol Sulfate (Ventolin 0.083% Nebulizer Soln -) 1 amp NEB Q6H PRN PRN Reason: SHORT OF BREATH/WHEEZING Last Admin: 04/08/16 22:07 Dose: 1 amp Apixaban (Eliquis -) 2.5 mg PO BID [facility] Last Admin: 04/10/16 09:30 Dose: 2.5 mg Budesonide/Formoterol Fumarate (Symbicort 160/4.5mcg -) 2 puff IH BID [facility] Last Admin: 04/10/16 10:10 Dose: 2 puff Cholecalciferol (Vitamin D3 -) 2,000 unit PO DAILY [facility] Last Admin: 04/10/16 09:29 Dose: 2,000 unit Escitalopram Oxalate (Lexapro -) 10 mg PO DAILY [facility] Last Admin: 04/10/16 09:29 Dose: 10 mg Folic Acid (Folic Acid -) 1 mg PO DAILY [facility] Last Admin: 04/10/16 09:29 Dose: 1 mg Gabapentin (Neurontin -) 300 mg PO TID [facility] Last Admin: 04/10/16 06:12 Dose: 300 mg Levothyroxine Sodium 75 mcg/ (Levothyroxine Sodium 100 mcg) 175 mcg PO DAILY@ 0700 [facility] Last Admin: 04/10/16 06:12 Dose: 175 mcg Lorazepam (Ativan -) 1 mg PO BID PRN PRN Reason: ANXIETY Last Admin: 04/09/16 22:16 Dose: 1 mg Methylprednisolone Sodium Succinate (Solu-Medrol -) 40 mg IVPB Q8H-IV [facility] Last Admin: 04/10/16 09:37 Dose: 40 mg Nebivolol (Bystolic -) 5 mg PO DAILY [facility] Last Admin: 04/10/16 09:29 Dose: 5 mg Pantoprazole Sodium (Protonix -) 20 mg PO DAILY [facility] Last Admin: 04/10/16 09:37 Dose: 20 mg Ranitidine HCl (Zantac -) 300 mg PO HS [facility] Last Admin: 04/09/16 22:16 Dose: 300 mg Tiotropium [place] (Spiriva -) 1 puff IH DAILY [facility] Last Admin: 04/10/16 10:11 Dose: 1 puff Zolpidem Tartrate (Ambien -) 5 mg PO HS PRN PRN Reason: INSOMNIA Last Admin: 04/08/16 21:46 Dose: 5 mg - Objective Vital Signs: Vital Signs Temperature 98.5 F 04/10/16 10:00 Pulse Rate 100 H 04/10/16 10:00 Respiratory Rate 20 04/10/16 10:00 Blood Pressure 133/78 04/10/16 10:00 O2 Sat by Pulse Oximetry (%) 99 04/09/16 21:00 Constitutional: Yes: No Distress, Calm Neck: Yes: Supple Cardiovascular: Yes: Pulse Irregular Respiratory: Yes: Regular, Diminished, On Nasal O2 Gastrointestinal: Yes: Normal Bowel Sounds, Soft, Abdomen, Obese Edema: No Labs: CBC, BMP 04/10/16 06:30 04/10/16 06:30 INR, PTT INR 1.31 (0.82-1.09) H 04/07/16 13:00 - ....Imaging EKG: Report Reviewed (Tele: Afib) Problem List - Problems (1) Acute bronchitis with COPD Code(s): J44.0 - CHRONIC OBSTRUCTIVE PULMON DISEASE W ACUTE LOWER RESP INFCT (2) Shortness of breath Code(s): R06.02 - SHORTNESS OF BREATH (3) A-fib Code(s): I48.91 - UNSPECIFIED ATRIAL FIBRILLATION Qualifiers: Atrial fibrillation type: persistent Qualified Code(s): I48.1 - Persistent atrial fibrillation (4) Hypertension Code(s): I10 - ESSENTIAL (PRIMARY) HYPERTENSION Qualifiers: Hypertension type: essential hypertension Qualified Code(s): I10 - Essential (primary) hypertension (5) Hypothyroidism Code(s): E03.9 - HYPOTHYROIDISM, UNSPECIFIED Qualifiers: Hypothyroidism type: unspecified Qualified Code(s): E03.9 - Hypothyroidism, unspecified (6) Rheumatoid arthritis Code(s): M06.9 - RHEUMATOID ARTHRITIS, UNSPECIFIED Qualifiers: Rheumatoid arthritis location: unspecified site (7) Polymyalgia rheumatica Code(s): M35.3 - POLYMYALGIA RHEUMATICA (8) Anemia Code(s): D64.9 - ANEMIA, UNSPECIFIED Assessment/Plan 06/05/2015 Echo shows normal LV size and fxn, mod CHEKO, mod TR, mild MR, RVSP 40- 50 mmHg, 06/05/2015 Holter: SR freq PAC 1. AE COPD improving 2. Dysequilibrium, gait disturbance, orthostasis, mechanical falls referable to medication effect (ambien, ativan, amphetamine) 3. Persistent atrial fibrillation 4. Diastolic dysfunction, euvolemic 5. HTN/HCVD 6. RA maintained on MTX, prednisone 7. Spinal stenosis, compression fractures 8. Hypothyroidism 9. Anxiety P:1. BD, IV steroid taper, O2 as needed to maintain saO2 2. Continue Bystolic 5 qd, Eliquis 2.5 bid 3. PT, gait training, fall precautions 4. DVT and GI prophylaxis
--- NOTE | 2016-04-10 13:25 | PN ---
Progress Note, Physician History of Present Illness: pulmonary alert,oob-chair ,-sob - Current Medication List Current Medications: Active Medications Albuterol Sulfate (Ventolin 0.083% Nebulizer Soln -) 1 amp NEB Q6H PRN PRN Reason: SHORT OF BREATH/WHEEZING Last Admin: 04/08/16 22:07 Dose: 1 amp Apixaban (Eliquis -) 2.5 mg PO BID [facility] Last Admin: 04/10/16 09:30 Dose: 2.5 mg Budesonide/Formoterol Fumarate (Symbicort 160/4.5mcg -) 2 puff IH BID [facility] Last Admin: 04/10/16 10:10 Dose: 2 puff Cholecalciferol (Vitamin D3 -) 2,000 unit PO DAILY [facility] Last Admin: 04/10/16 09:29 Dose: 2,000 unit Escitalopram Oxalate (Lexapro -) 10 mg PO DAILY [facility] Last Admin: 04/10/16 09:29 Dose: 10 mg Folic Acid (Folic Acid -) 1 mg PO DAILY [facility] Last Admin: 04/10/16 09:29 Dose: 1 mg Gabapentin (Neurontin -) 300 mg PO TID [facility] Last Admin: 04/10/16 06:12 Dose: 300 mg Levothyroxine Sodium 75 mcg/ (Levothyroxine Sodium 100 mcg) 175 mcg PO DAILY@ 0700 [facility] Last Admin: 04/10/16 06:12 Dose: 175 mcg Lorazepam (Ativan -) 1 mg PO BID PRN PRN Reason: ANXIETY Last Admin: 04/09/16 22:16 Dose: 1 mg Methylprednisolone Sodium Succinate (Solu-Medrol -) 40 mg IVPB Q8H-IV [facility] Last Admin: 04/10/16 09:37 Dose: 40 mg Nebivolol (Bystolic -) 5 mg PO DAILY [facility] Last Admin: 04/10/16 09:29 Dose: 5 mg Pantoprazole Sodium (Protonix -) 20 mg PO DAILY [facility] Last Admin: 04/10/16 09:37 Dose: 20 mg Ranitidine HCl (Zantac -) 300 mg PO HS [facility] Last Admin: 04/09/16 22:16 Dose: 300 mg Tiotropium [place] (Spiriva -) 1 puff IH DAILY [facility] Last Admin: 04/10/16 10:11 Dose: 1 puff Zolpidem Tartrate (Ambien -) 5 mg PO HS PRN PRN Reason: INSOMNIA Last Admin: 04/08/16 21:46 Dose: 5 mg - Objective Vital Signs: Vital Signs Temperature 98.5 F 04/10/16 10:00 Pulse Rate 100 H 04/10/16 10:00 Respiratory Rate 20 04/10/16 10:00 Blood Pressure 133/78 04/10/16 10:00 O2 Sat by Pulse Oximetry (%) 99 04/09/16 21:00 Constitutional: Yes: Well Nourished, Calm Eyes: Yes: WNL HENT: Yes: WNL Neck: Yes: WNL Cardiovascular: Yes: Pulse Irregular, S1, S2 Respiratory: Yes: Wheezes (scattered [place] wheezes) Gastrointestinal: Yes: Normal Bowel Sounds, Soft Extremities: Yes: WNL Edema: No Labs: CBC, BMP 04/10/16 06:30 04/10/16 06:30 INR, PTT INR 1.31 (0.82-1.09) H 04/07/16 13:00 Problem List - Problems (1) Acute bronchitis with COPD Code(s): J44.0 - CHRONIC OBSTRUCTIVE PULMON DISEASE W ACUTE LOWER RESP INFCT (2) Anemia Code(s): D64.9 - ANEMIA, UNSPECIFIED (3) CAD (coronary artery disease) Code(s): I25.10 - ATHSCL HEART DISEASE OF [place] CORONARY ARTERY W/O ANG PCTRS Qualifiers: Coronary Disease-Associated Artery/Lesion type: [place] artery [place] vs. transplanted heart: [place] heart Associated angina: without angina Qualified Code(s): I25.10 - Atherosclerotic heart disease of [place] coronary artery without angina pectoris (4) DU (dyspnea on exertion) Code(s): R06.09 - OTHER FORMS OF DYSPNEA (5) Pulmonary hypertension Code(s): I27.2 - OTHER SECONDARY PULMONARY HYPERTENSION (6) Shortness of breath Code(s): R06.02 - SHORTNESS OF BREATH (7) A-fib Code(s): I48.91 - UNSPECIFIED ATRIAL FIBRILLATION Qualifiers: Atrial fibrillation type: persistent Qualified Code(s): I48.1 - Persistent atrial fibrillation (8) History of breast cancer Code(s): Z85.3 - PERSONAL HISTORY OF MALIGNANT NEOPLASM OF BREAST (9) Hypertension Code(s): I10 - ESSENTIAL (PRIMARY) HYPERTENSION Qualifiers: Hypertension type: essential hypertension Qualified Code(s): I10 - Essential (primary) hypertension (10) Rheumatoid arthritis Code(s): M06.9 - RHEUMATOID ARTHRITIS, UNSPECIFIED Qualifiers: Rheumatoid arthritis location: unspecified site (11) Asthmatic bronchitis with exacerbation Code(s): J45.901 - UNSPECIFIED ASTHMA WITH (ACUTE) EXACERBATION
[2016-04-10] MEDS: RANITIDINE HCL 150 MG TABLET (FP) PO SCH (21:26)
--- NOTE | 2016-04-10 22:42 | PN ---
Progress Note, Physician History of Present Illness: Pt is breathing better today . Pt. w/o CP, palp., dizziness, abd pain. Pt states that she is anxious at times because she doesn't like being in the hospital.. - Current Medication List Current Medications: Active Medications Albuterol Sulfate (Ventolin 0.083% Nebulizer Soln -) 1 amp NEB Q6H PRN PRN Reason: SHORT OF BREATH/WHEEZING Last Admin: 04/08/16 22:07 Dose: 1 amp Apixaban (Eliquis -) 2.5 mg PO BID [facility] Last Admin: 04/10/16 21:26 Dose: 2.5 mg Budesonide/Formoterol Fumarate (Symbicort 160/4.5mcg -) 2 puff IH BID [facility] Last Admin: 04/10/16 21:41 Dose: 2 puff Cholecalciferol (Vitamin D3 -) 2,000 unit PO DAILY [facility] Last Admin: 04/10/16 09:29 Dose: 2,000 unit Escitalopram Oxalate (Lexapro -) 10 mg PO DAILY [facility] Last Admin: 04/10/16 09:29 Dose: 10 mg Folic Acid (Folic Acid -) 1 mg PO DAILY [facility] Last Admin: 04/10/16 09:29 Dose: 1 mg Gabapentin (Neurontin -) 300 mg PO TID [facility] Last Admin: 04/10/16 21:27 Dose: 300 mg Levothyroxine Sodium 75 mcg/ (Levothyroxine Sodium 100 mcg) 175 mcg PO DAILY@ 0700 [facility] Last Admin: 04/10/16 06:12 Dose: 175 mcg Lorazepam (Ativan -) 1 mg PO BID PRN PRN Reason: ANXIETY Last Admin: 04/09/16 22:16 Dose: 1 mg Methylprednisolone Sodium Succinate (Solu-Medrol -) 40 mg IVPB BID [facility] Last Admin: 04/10/16 21:27 Dose: 40 mg Nebivolol (Bystolic -) 5 mg PO DAILY [facility] Last Admin: 04/10/16 09:29 Dose: 5 mg Pantoprazole Sodium (Protonix -) 20 mg PO DAILY [facility] Last Admin: 04/10/16 09:37 Dose: 20 mg Ranitidine HCl (Zantac -) 300 mg PO HS [facility] Last Admin: 04/10/16 21:26 Dose: 300 mg Tiotropium [place] (Spiriva -) 1 puff IH DAILY [facility] Last Admin: 04/10/16 10:11 Dose: 1 puff Zolpidem Tartrate (Ambien -) 5 mg PO HS PRN PRN Reason: INSOMNIA Last Admin: 04/08/16 21:46 Dose: 5 mg - Objective Vital Signs: Vital Signs Temperature 98.5 F 04/10/16 18:00 Pulse Rate 95 H 04/10/16 15:00 Respiratory Rate 18 04/10/16 15:00 Blood Pressure 121/86 04/10/16 15:00 O2 Sat by Pulse Oximetry (%) 99 04/09/16 21:00 Constitutional: Yes: No Distress, Calm Cardiovascular: Yes: Regular Rate and Rhythm, S1, S2 Respiratory: Yes: Regular, Wheezes (expirtory), Other (moving air better today.) Gastrointestinal: Yes: Normal Bowel Sounds, Soft. No: Tenderness Edema: No Neurological: Yes: Alert, Oriented Labs: CBC, BMP 04/10/16 06:30 04/10/16 06:30 INR, PTT INR 1.31 (0.82-1.09) H 04/07/16 13:00 Problem List - Problems (1) Acute bronchitis with COPD Assessment/Plan: on IV steroids- nella per pulmonary Pulmonary consult appreciated Code(s): J44.0 - CHRONIC OBSTRUCTIVE PULMON DISEASE W ACUTE LOWER RESP INFCT (2) CAD (coronary artery disease) Code(s): I25.10 - ATHSCL HEART DISEASE OF [place] CORONARY ARTERY W/O ANG PCTRS Qualifiers: Coronary Disease-Associated Artery/Lesion type: [place] artery [place] vs. transplanted heart: [place] heart Associated angina: without angina Qualified Code(s): I25.10 - Atherosclerotic heart disease of [place] coronary artery without angina pectoris (3) A-fib Assessment/Plan: on AC Code(s): I48.91 - UNSPECIFIED ATRIAL FIBRILLATION Qualifiers: Atrial fibrillation type: persistent Qualified Code(s): I48.1 - Persistent atrial fibrillation (4) Hypertension Assessment/Plan: cont. current meds Code(s): I10 - ESSENTIAL (PRIMARY) HYPERTENSION Qualifiers: Hypertension type: essential hypertension Qualified Code(s): I10 - Essential (primary) hypertension (5) Pulmonary hypertension Code(s): I27.2 - OTHER SECONDARY PULMONARY HYPERTENSION (6) Anemia Assessment/Plan: Chronic Probable of chronic disease- RA; to f/u Iron studies Code(s): D64.9 - ANEMIA, UNSPECIFIED (7) Rheumatoid arthritis Assessment/Plan: On chronic Prednisone ( 5 mg daily) Code(s): M06.9 - RHEUMATOID ARTHRITIS, UNSPECIFIED Qualifiers: Rheumatoid arthritis location: unspecified site (8) Leukocytosis Assessment/Plan: Probable secondary to steroids Code(s): D72.829 - ELEVATED WHITE BLOOD CELL COUNT, UNSPECIFIED (9) Anxiety Assessment/Plan: PRN Xanax Code(s): F41.9 - ANXIETY DISORDER, UNSPECIFIED
[2016-04-11] MEDS ORDERED: LEVOTHYROXINE NA 75 MCG TABLET (FP) ONE (06:06)
[2016-04-11] MEDS ORDERED: LEVOTHYROXINE NA 100 MCG TABLET (FP) ONE (06:06)
[2016-04-11] MEDS: LEVOTHYROXINE 75 MCG, LEVOTHYROXINE 100 MCG PO SCH (06:09)
[2016-04-11] MEDS: GABAPENTIN 300 MG CAPSULE (FP) PO SCH ×3 (06:09→21:11)
[2016-04-11 07:36] LABS: MCH 26.9 pg (25.7-33.7); MCHC 31.3 g/dl (32.0-36.0); MEAN PLT VOLUME 9.4 fl (7.5-11.1); PLATELET COUNT 225 K/MM3 (134-434); RDW 19.1 % (11.6-15.6); WHITE BLOOD COUNT 11.6 K/mm3 (4.0-10.0)
[2016-04-11 08:03] LABS: CALCIUM 8.6 mg/dL (8.5-10.1); CREATININE 0.9 mg/dL (0.55-1.02)
[2016-04-11] MEDS ORDERED: PT OWN MED DRAWER 7, Y5N ONE ×4 (10:27→21:16)
--- NOTE | 2016-04-11 10:44 | PN ---
Progress Note (short form) - Note Progress Note: Chief Complaint: Events noted, notes reviewed, denies any chest pain, dyspnea improved History of Present Illness: Seen and examined on telemetry. Events noted, notes reviewed, denies any chest pain, dyspnea improved Echocardiography dated 06/05/2015 revealed normal LV size and function, moderate bi-atrial dilatation, mild MR, moderate TR with RVSP 40-50 mmHg - Current Medication List Current Medications Albuterol Sulfate (Ventolin 0.083% Nebulizer Soln -) 1 amp NEB Q6H PRN PRN Reason: SHORT OF BREATH/WHEEZING Last Admin: 04/08/16 22:07 Dose: 1 amp Alprazolam (Xanax -) 0.25 mg PO BID PRN Apixaban (Eliquis -) 2.5 mg PO BID [facility] Last Admin: 04/10/16 21:26 Dose: 2.5 mg Budesonide/Formoterol Fumarate (Symbicort 160/4.5mcg -) 2 puff IH BID [facility] Last Admin: 04/10/16 21:41 Dose: 2 puff Cholecalciferol (Vitamin D3 -) 2,000 unit PO DAILY [facility] Last Admin: 04/10/16 09:29 Dose: 2,000 unit Escitalopram Oxalate (Lexapro -) 10 mg PO DAILY [facility] Last Admin: 04/10/16 09:29 Dose: 10 mg Folic Acid (Folic Acid -) 1 mg PO DAILY [facility] Last Admin: 04/10/16 09:29 Dose: 1 mg Gabapentin (Neurontin -) 300 mg PO TID [facility] Last Admin: 04/11/16 06:09 Dose: 300 mg Levothyroxine Sodium 75 mcg/ (Levothyroxine Sodium 100 mcg) 175 mcg PO DAILY@ 0700 [facility] Last Admin: 04/11/16 06:09 Dose: 175 mcg Lorazepam (Ativan -) 1 mg PO BID PRN PRN Reason: ANXIETY Last Admin: 04/09/16 22:16 Dose: 1 mg Methylprednisolone Sodium Succinate (Solu-Medrol -) 40 mg IVPB BID [facility] Last Admin: 04/10/16 21:27 Dose: 40 mg Nebivolol (Bystolic -) 5 mg PO DAILY [facility] Last Admin: 04/10/16 09:29 Dose: 5 mg Pantoprazole Sodium (Protonix -) 20 mg PO DAILY [facility] Last Admin: 04/10/16 09:37 Dose: 20 mg Ranitidine HCl (Zantac -) 300 mg PO HS [facility] Last Admin: 04/10/16 21:26 Dose: 300 mg Tiotropium [place] (Spiriva -) 1 puff IH DAILY [facility] Last Admin: 04/10/16 10:11 Dose: 1 puff Zolpidem Tartrate (Ambien -) 5 mg PO HS PRN PRN Reason: INSOMNIA Last Admin: 04/08/16 21:46 Dose: 5 mg Review of Systems Cardiovascular: As noted above Respiratory: reports: Cough Gastrointestinal: denies: Nausea, Vomiting, Diarrhea, Constipation or Abdominal Discomfort Musculoskeletal: No Symptoms Reported Endocrine: No Symptoms Reported - Objective Vital Signs: Last Vital Signs Temp Pulse Resp BP Pulse Ox 98.5 F 87 20 151/90 97 04/11/16 06:00 04/11/16 06:00 04/11/16 06:00 04/11/16 06:00 04/10/16 21:00 Constitutional: No Distress, Calm Neck: Supple Negative JVD No Bruit Cardiovascular: S1 S2 Irregularly Irregular Respiratory: Diminished Breath Sounds at the Bases Gastrointestinal: Soft Benign Normal Bowel Sounds Ext: No Edema Labs: CBC, BMP 04/11/16 06:10 04/11/16 06:10 Hepatic Panel Total Bilirubin 0.4 mg/dL (0.2-1.0) 04/08/16 05:35 AST 55 U/L (15-37) H D 04/08/16 05:35 ALT 67 U/L (12-78) D 04/08/16 05:35 Alkaline Phosphatase 104 U/L (45-117) 04/08/16 05:35 Albumin 3.6 g/dl (3.4-5.0) 04/08/16 05:35 Assessment/Plan ASSESSMENT: 1. Acute exacerbation of COPD, resolving 2. Persistent atrial fibrillation [id number] score of 5 on A/C with Eliquis 3. CAD angina pectoris 4. Diastolic dysfunction with chronic class I NYHA classification, euvolemic 5. HTN 6. Hypothyroidism 7. Rheumatoid arthritis 8. Spinal stenosis 9. compression fractures PLAN: 1. Continue Bystolic 2. Continue Eliquis 3. Bronchodilators and steroids as per the primary team Brandy Nuñez MD
[2016-04-11] MEDS: CHOLECALCIFEROL (VITAMIN D3) 1,000 UNIT TABLET (FP) PO SCH (10:56)
[2016-04-11] MEDS: FOLIC ACID 1 MG TABLET (FP) PO SCH (10:56)
[2016-04-11] MEDS: NEBIVOLOL 5 MG TABLET (FP) PO SCH (10:56)
[2016-04-11] MEDS: PANTOPRAZOLE 20 MG TABLET (FP) PO SCH (10:56)
[2016-04-11] MEDS: APIXABAN 2.5 MG TABLET PO SCH ×2 (10:57→21:11)
[2016-04-11] MEDS: ESCITALOPRAM OXALATE 10 MG TABLET (FP) PO SCH (10:57)
[2016-04-11] MEDS: BUDESONIDE/FORMETEROL FUMARATE 160/4.5 mcg INHALER IH SCH ×2 (11:31→21:16)
[2016-04-11] MEDS: TIOTROPIUM BROMIDE 18 MCG/INH (DEVICE W/ 5 CAPSULES) IH SCH (11:31)
--- NOTE | 2016-04-11 11:59 | PN ---
Progress Note, Physician History of Present Illness: PULMONARY ALERT,OOB-CHAIR,LESS DYSPNEIC,+ COUGH - Current Medication List Current Medications: Active Medications Albuterol Sulfate (Ventolin 0.083% Nebulizer Soln -) 1 amp NEB Q6H PRN PRN Reason: SHORT OF BREATH/WHEEZING Last Admin: 04/08/16 22:07 Dose: 1 amp Alprazolam (Xanax -) 0.25 mg PO BID PRN Apixaban (Eliquis -) 2.5 mg PO BID [facility] Last Admin: 04/11/16 10:57 Dose: 2.5 mg Budesonide/Formoterol Fumarate (Symbicort 160/4.5mcg -) 2 puff IH BID [facility] Last Admin: 04/11/16 11:31 Dose: 2 puff Cholecalciferol (Vitamin D3 -) 2,000 unit PO DAILY [facility] Last Admin: 04/11/16 10:56 Dose: 2,000 unit Escitalopram Oxalate (Lexapro -) 10 mg PO DAILY [facility] Last Admin: 04/11/16 10:57 Dose: 10 mg Folic Acid (Folic Acid -) 1 mg PO DAILY [facility] Last Admin: 04/11/16 10:56 Dose: 1 mg Gabapentin (Neurontin -) 300 mg PO TID [facility] Last Admin: 04/11/16 06:09 Dose: 300 mg Levothyroxine Sodium 75 mcg/ (Levothyroxine Sodium 100 mcg) 175 mcg PO DAILY@ 0700 [facility] Last Admin: 04/11/16 06:09 Dose: 175 mcg Lorazepam (Ativan -) 1 mg PO BID PRN PRN Reason: ANXIETY Last Admin: 04/09/16 22:16 Dose: 1 mg Methylprednisolone Sodium Succinate (Solu-Medrol -) 40 mg IVPB BID [facility] Last Admin: 04/10/16 21:27 Dose: 40 mg Nebivolol (Bystolic -) 5 mg PO DAILY [facility] Last Admin: 04/11/16 10:56 Dose: 5 mg Pantoprazole Sodium (Protonix -) 20 mg PO DAILY [facility] Last Admin: 04/11/16 10:56 Dose: 20 mg Ranitidine HCl (Zantac -) 300 mg PO HS [facility] Last Admin: 04/10/16 21:26 Dose: 300 mg Tiotropium [place] (Spiriva -) 1 puff IH DAILY [facility] Last Admin: 04/11/16 11:31 Dose: 1 puff Zolpidem Tartrate (Ambien -) 5 mg PO HS PRN PRN Reason: INSOMNIA Last Admin: 04/08/16 21:46 Dose: 5 mg - Objective Vital Signs: Vital Signs Temperature 98.2 F 04/11/16 10:00 Pulse Rate 98 H 04/11/16 10:00 Respiratory Rate 20 04/11/16 10:00 Blood Pressure 142/77 04/11/16 10:00 O2 Sat by Pulse Oximetry (%) 98 04/11/16 09:00 Constitutional: Yes: Well Nourished, Calm Eyes: Yes: WNL HENT: Yes: WNL Neck: Yes: WNL Cardiovascular: Yes: Pulse Irregular, S1, S2 Respiratory: Yes: Wheezes ([place]AT[place]ED [place] WHEEZES) Gastrointestinal: Yes: Normal Bowel Sounds, Soft Extremities: Yes: WNL Edema: Yes Labs: CBC, BMP 04/11/16 06:10 04/11/16 06:10 INR, PTT INR 1.31 (0.82-1.09) H 04/07/16 13:00 Problem List - Problems (1) Acute bronchitis with COPD Code(s): J44.0 - CHRONIC OBSTRUCTIVE PULMON DISEASE W ACUTE LOWER RESP INFCT (2) Anemia Code(s): D64.9 - ANEMIA, UNSPECIFIED (3) CAD (coronary artery disease) Code(s): I25.10 - ATHSCL HEART DISEASE OF [place] CORONARY ARTERY W/O ANG PCTRS Qualifiers: Coronary Disease-Associated Artery/Lesion type: [place] artery [place] vs. transplanted heart: [place] heart Associated angina: without angina Qualified Code(s): I25.10 - Atherosclerotic heart disease of [place] coronary artery without angina pectoris (4) DU (dyspnea on exertion) Code(s): R06.09 - OTHER FORMS OF DYSPNEA (5) Pulmonary hypertension Code(s): I27.2 - OTHER SECONDARY PULMONARY HYPERTENSION (6) Shortness of breath Code(s): R06.02 - SHORTNESS OF BREATH (7) A-fib Code(s): I48.91 - UNSPECIFIED ATRIAL FIBRILLATION Qualifiers: Atrial fibrillation type: persistent Qualified Code(s): I48.1 - Persistent atrial fibrillation (8) History of breast cancer Code(s): Z85.3 - PERSONAL HISTORY OF MALIGNANT NEOPLASM OF BREAST (9) Hypertension Code(s): I10 - ESSENTIAL (PRIMARY) HYPERTENSION Qualifiers: Hypertension type: essential hypertension Qualified Code(s): I10 - Essential (primary) hypertension (10) Rheumatoid arthritis Code(s): M06.9 - RHEUMATOID ARTHRITIS, UNSPECIFIED Qualifiers: Rheumatoid arthritis location: unspecified site (11) Asthmatic bronchitis with exacerbation Code(s): J45.901 - UNSPECIFIED ASTHMA WITH (ACUTE) EXACERBATION Assessment/Plan IMP ACUTE ASTHMATIC BRONCHITIS RECENT PNEUMONIA AFIB HTN PULMONARY HTN DIASTOLIC HF ANXIETY RA PLAN TAPER STEROIDS INHALED BRONCHODILATORS NASAL O2 ANTICOAGULATION DR QUINN Problem List - Problems (1) Acute bronchitis with COPD Code(s): J44.0 - CHRONIC OBSTRUCTIVE PULMON DISEASE W ACUTE LOWER RESP INFCT (2) Anemia Code(s): D64.9 - ANEMIA, UNSPECIFIED (3) CAD (coronary artery disease) Code(s): I25.10 - ATHSCL HEART DISEASE OF [place] CORONARY ARTERY W/O ANG PCTRS Qualifiers: Coronary Disease-Associated Artery/Lesion type: [place] artery [place] vs. transplanted heart: [place] heart Associated angina: without angina Qualified Code(s): I25.10 - Atherosclerotic heart disease of [place] coronary artery without angina pectoris (4) DU (dyspnea on exertion) Code(s): R06.09 - OTHER FORMS OF DYSPNEA (5) Pulmonary hypertension Code(s): I27.2 - OTHER SECONDARY PULMONARY HYPERTENSION (6) Shortness of breath Code(s): R06.02 - SHORTNESS OF BREATH (7) A-fib Code(s): I48.91 - UNSPECIFIED ATRIAL FIBRILLATION Qualifiers: Atrial fibrillation type: persistent Qualified Code(s): I48.1 - Persistent atrial fibrillation (8) History of breast cancer Code(s): Z85.3 - PERSONAL HISTORY OF MALIGNANT NEOPLASM OF BREAST (9) Hypertension Code(s): I10 - ESSENTIAL (PRIMARY) HYPERTENSION Qualifiers: Hypertension type: essential hypertension Qualified Code(s): I10 - Essential (primary) hypertension (10) Rheumatoid arthritis Code(s): M06.9 - RHEUMATOID ARTHRITIS, UNSPECIFIED Qualifiers: Rheumatoid arthritis location: unspecified site (11) Asthmatic bronchitis with exacerbation Code(s): J45.901 - UNSPECIFIED ASTHMA WITH (ACUTE) EXACERBATION
[2016-04-11] MEDS: methylPREDNISolone NA SUCC 40 MG/1 ML VIAL IVPB SCH ×2 (12:54→21:11)
--- NOTE | 2016-04-11 13:00 | PN ---
Progress Note, Physician Chief Complaint: in bed NAD family at bedside; still SOB and dry cough and DU with few steps, legs edema bilateral - ordered lasix and advised to keep feet up - Current Medication List Current Medications: Active Medications Albuterol Sulfate (Ventolin 0.083% Nebulizer Soln -) 1 amp NEB Q6H PRN PRN Reason: SHORT OF BREATH/WHEEZING Last Admin: 04/08/16 22:07 Dose: 1 amp Alprazolam (Xanax -) 0.25 mg PO BID PRN Apixaban (Eliquis -) 2.5 mg PO BID [facility] Last Admin: 04/11/16 10:57 Dose: 2.5 mg Budesonide/Formoterol Fumarate (Symbicort 160/4.5mcg -) 2 puff IH BID [facility] Last Admin: 04/11/16 11:31 Dose: 2 puff Cholecalciferol (Vitamin D3 -) 2,000 unit PO DAILY [facility] Last Admin: 04/11/16 10:56 Dose: 2,000 unit Escitalopram Oxalate (Lexapro -) 10 mg PO DAILY [facility] Last Admin: 04/11/16 10:57 Dose: 10 mg Folic Acid (Folic Acid -) 1 mg PO DAILY [facility] Last Admin: 04/11/16 10:56 Dose: 1 mg Gabapentin (Neurontin -) 300 mg PO TID [facility] Last Admin: 04/11/16 06:09 Dose: 300 mg Levothyroxine Sodium 75 mcg/ (Levothyroxine Sodium 100 mcg) 175 mcg PO DAILY@ 0700 [facility] Last Admin: 04/11/16 06:09 Dose: 175 mcg Lorazepam (Ativan -) 1 mg PO BID PRN PRN Reason: ANXIETY Last Admin: 04/09/16 22:16 Dose: 1 mg Methylprednisolone Sodium Succinate (Solu-Medrol -) 40 mg IVPB BID [facility] Last Admin: 04/11/16 12:54 Dose: 40 mg Nebivolol (Bystolic -) 5 mg PO DAILY [facility] Last Admin: 04/11/16 10:56 Dose: 5 mg Pantoprazole Sodium (Protonix -) 20 mg PO DAILY [facility] Last Admin: 04/11/16 10:56 Dose: 20 mg Ranitidine HCl (Zantac -) 300 mg PO HS [facility] Last Admin: 04/10/16 21:26 Dose: 300 mg Tiotropium [place] (Spiriva -) 1 puff IH DAILY [facility] Last Admin: 04/11/16 11:31 Dose: 1 puff Zolpidem Tartrate (Ambien -) 5 mg PO HS PRN PRN Reason: INSOMNIA Last Admin: 04/08/16 21:46 Dose: 5 mg - Objective Vital Signs: Vital Signs Temperature 98.2 F 04/11/16 10:00 Pulse Rate 98 H 04/11/16 10:00 Respiratory Rate 20 04/11/16 10:00 Blood Pressure 142/77 04/11/16 10:00 O2 Sat by Pulse Oximetry (%) 98 04/11/16 09:00 Constitutional: Yes: No Distress, Calm Eyes: Yes: Conjunctiva Clear HENT: Yes: Atraumatic Neck: Yes: Supple Cardiovascular: Yes: Regular Rate and Rhythm Respiratory: Yes: Diminished Gastrointestinal: Yes: Soft. No: Distention, Tenderness Genitourinary: No: CVA Tenderness - Left, CVA Tenderness - Right, Hematuria Musculoskeletal: No: Joint Stiffness, Joint Swelling Extremities: No: Cold, Cool Edema: Yes Peripheral Pulses WNL: Yes Integumentary: No: Rash, Venous Stasis Changes Neurological: Yes: WNL, Alert, Oriented ...Motor Strength: WNL Psychiatric: Yes: WNL, Alert, Oriented. No: Agitated, Suicidal Ideation Labs: CBC, BMP 04/11/16 06:10 04/11/16 06:10 INR, PTT INR 1.31 (0.82-1.09) H 04/07/16 13:00 - ....Imaging Other: Report Reviewed Assessment/Plan The patient is an 86-year-old female with a significant past medical history of atrial fibrillation(on Eliquis), breast cancer(1999), spinal stenosis, rheumatoid arthritis(on Prednisone), hypertension, hypothyroidism, wei's palsy , depression and anxiety who presents to the emergency department with dyspnea on exertion. s/p recent PNA improved with IV ATB and nebs in ER no signs of CHF or fluid overload on exam or CXR IV steroids, nebs IV lasix as ordered cardiology and pulmonary eval falls DVT PFX might need home O2 d/w pt and family at bedside
[2016-04-11] MEDS ORDERED: FUROSEMIDE 40 MG/4 ML INJECTABLE VIAL ONE (13:46)
[2016-04-11] MEDS: FUROSEMIDE 40 MG/4 ML INJECTABLE VIAL IVPB SCH (14:09)
[2016-04-11] MEDS: ZOLPIDEM TARTRATE 5 MG TABLET PO PRN (21:11)
[2016-04-11] MEDS: RANITIDINE HCL 150 MG TABLET (FP) PO SCH (21:11)
[2016-04-12] MEDS: ALBUTEROL SO4 0.083% IH SOL 2.5 MG/3 ML VIAL.NEB. NEB PRN (00:50)
[2016-04-12] MEDS: ALPRAZolam 0.25 MG TABLET PO PRN (01:50)
[2016-04-12] MEDS ORDERED: LEVOTHYROXINE NA 75 MCG TABLET (FP) ONE (04:58)
[2016-04-12] MEDS ORDERED: LEVOTHYROXINE NA 100 MCG TABLET (FP) ONE (04:58)
[2016-04-12] MEDS: GABAPENTIN 300 MG CAPSULE (FP) PO SCH ×3 (05:07→21:45)
[2016-04-12] MEDS: LEVOTHYROXINE 75 MCG, LEVOTHYROXINE 100 MCG PO SCH (06:03)
[2016-04-12 07:50] LABS: MCHC 31.7 g/dl (32.0-36.0); MEAN CELL VOLUME 85.2 fl (80-96); MEAN PLT VOLUME 9.5 fl (7.5-11.1); PLATELET COUNT 206 K/MM3 (134-434)
[2016-04-12 08:21] LABS: CALCIUM 8.5 mg/dL (8.5-10.1); CREATININE 0.9 mg/dL (0.55-1.02)
[2016-04-12] MEDS ORDERED: PT OWN MED DRAWER 7, Y5N ONE (08:51)
[2016-04-12] MEDS: methylPREDNISolone NA SUCC 40 MG/1 ML VIAL IVPB SCH (09:19)
[2016-04-12] MEDS: FUROSEMIDE 40 MG/4 ML INJECTABLE VIAL IVPB SCH (09:19)
[2016-04-12] MEDS: ESCITALOPRAM OXALATE 10 MG TABLET (FP) PO SCH (09:20)
[2016-04-12] MEDS: FOLIC ACID 1 MG TABLET (FP) PO SCH (09:20)
[2016-04-12] MEDS: APIXABAN 2.5 MG TABLET PO SCH ×3 (09:20→21:45)
[2016-04-12] MEDS: PANTOPRAZOLE 20 MG TABLET (FP) PO SCH (09:20)
[2016-04-12] MEDS: CHOLECALCIFEROL (VITAMIN D3) 1,000 UNIT TABLET (FP) PO SCH (09:20)
[2016-04-12] MEDS: NEBIVOLOL 5 MG TABLET (FP) PO SCH (09:21)
[2016-04-12] MEDS: TIOTROPIUM BROMIDE 18 MCG/INH (DEVICE W/ 5 CAPSULES) IH SCH (09:21)
[2016-04-12] MEDS: BUDESONIDE/FORMETEROL FUMARATE 160/4.5 mcg INHALER IH SCH ×2 (09:22→21:45)
--- NOTE | 2016-04-12 09:22 | PN ---
Progress Note (short form) - Note Progress Note: Chief Complaint: Events noted, notes reviewed, denies any chest pain, dyspnea continues to improve History of Present Illness: Seen and examined on telemetry. Events noted, notes reviewed, denies any chest pain, dyspnea continues to improve Echocardiography dated 06/05/2015 revealed normal LV size and function, moderate bi-atrial dilatation, mild MR, moderate TR with RVSP 40-50 mmHg - Current Medication List Current Medications Albuterol Sulfate (Ventolin 0.083% Nebulizer Soln -) 1 amp NEB Q6H PRN PRN Reason: SHORT OF BREATH/WHEEZING Last Admin: 04/12/16 00:50 Dose: 1 amp Alprazolam (Xanax -) 0.25 mg PO BID PRN Last Admin: 04/12/16 01:50 Dose: 0.25 mg Apixaban (Eliquis -) 2.5 mg PO BID COUNTS INCLUDE 234 BEDS AT THE [facility] Last Admin: 04/11/16 21:11 Dose: 2.5 mg Budesonide/Formoterol Fumarate (Symbicort 160/4.5mcg -) 2 puff IH BID COUNTS INCLUDE 234 BEDS AT THE [facility] Last Admin: 04/11/16 21:16 Dose: 2 puff Cholecalciferol (Vitamin D3 -) 2,000 unit PO DAILY COUNTS INCLUDE 234 BEDS AT THE [facility] Last Admin: 04/11/16 10:56 Dose: 2,000 unit Escitalopram Oxalate (Lexapro -) 10 mg PO DAILY COUNTS INCLUDE 234 BEDS AT THE [facility] Last Admin: 04/11/16 10:57 Dose: 10 mg Folic Acid (Folic Acid -) 1 mg PO DAILY COUNTS INCLUDE 234 BEDS AT THE [facility] Last Admin: 04/11/16 10:56 Dose: 1 mg Furosemide (Lasix Injection -) 20 mg IVPB DAILY COUNTS INCLUDE 234 BEDS AT THE [facility] Last Admin: 04/11/16 14:09 Dose: 20 mg Gabapentin (Neurontin -) 300 mg PO TID COUNTS INCLUDE 234 BEDS AT THE [facility] Last Admin: 04/12/16 05:07 Dose: 300 mg Levothyroxine Sodium 75 mcg/ (Levothyroxine Sodium 100 mcg) 175 mcg PO DAILY@ 0700 COUNTS INCLUDE 234 BEDS AT THE [facility] Last Admin: 04/12/16 06:03 Dose: 175 mcg Lorazepam (Ativan -) 1 mg PO BID PRN PRN Reason: ANXIETY Last Admin: 04/09/16 22:16 Dose: 1 mg Methylprednisolone Sodium Succinate (Solu-Medrol -) 40 mg IVPB BID COUNTS INCLUDE 234 BEDS AT THE [facility] Last Admin: 04/11/16 21:11 Dose: 40 mg Nebivolol (Bystolic -) 5 mg PO DAILY COUNTS INCLUDE 234 BEDS AT THE [facility] Last Admin: 04/11/16 10:56 Dose: 5 mg Pantoprazole Sodium (Protonix -) 20 mg PO DAILY COUNTS INCLUDE 234 BEDS AT THE [facility] Last Admin: 04/11/16 10:56 Dose: 20 mg Ranitidine HCl (Zantac -) 300 mg PO HS COUNTS INCLUDE 234 BEDS AT THE [facility] Last Admin: 04/11/16 21:11 Dose: 300 mg Tiotropium [place] (Spiriva -) 1 puff IH DAILY COUNTS INCLUDE 234 BEDS AT THE [facility] Last Admin: 04/11/16 11:31 Dose: 1 puff Zolpidem Tartrate (Ambien -) 5 mg PO HS PRN PRN Reason: INSOMNIA Last Admin: 04/11/16 21:11 Dose: 5 mg Review of Systems Cardiovascular: As noted above Respiratory: reports: Cough Gastrointestinal: denies: Nausea, Vomiting, Diarrhea, Constipation or Abdominal Discomfort Musculoskeletal: No Symptoms Reported Endocrine: No Symptoms Reported - Objective Vital Signs: Last Vital Signs Temp Pulse Resp BP Pulse Ox 97.5 F L 91 H 18 141/97 98 04/12/16 06:00 04/12/16 06:00 04/12/16 06:00 04/12/16 06:00 04/11/16 21:00 Constitutional: No Distress, Calm Neck: Supple Negative JVD No Bruit Cardiovascular: S1 S2 Irregularly Irregular Respiratory: Diminished Breath Sounds at the Bases Gastrointestinal: Soft Benign Normal Bowel Sounds Ext: No Edema Labs: CBC, BMP 04/12/16 06:20 04/12/16 06:20 Assessment/Plan ASSESSMENT: 1. Acute exacerbation of COPD, resolving 2. Persistent atrial fibrillation [id number] score of 5 on A/C with Eliquis ( dose correction) 3. CAD angina pectoris 4. Diastolic dysfunction with chronic class I NYHA classification, euvolemic 5. HTN, not at goal 6. Hypothyroidism 7. Rheumatoid arthritis 8. Spinal stenosis 9. compression fractures PLAN: 1. Continue Bystolic and increase dosage 2. Continue Eliquis dose correction to 5 mg twice daily (Wt. > 60 Kg and Creatinine < 1.5) 3. Add ACEI or ARBS unless it is absolutely contraindicated 4. Bronchodilators and steroids as per the primary team Brandy Nuñez MD
[2016-04-12] MEDS ORDERED: NEBIVOLOL 5 MG TABLET (FP) PO SCH (09:23)
[2016-04-12] MEDS: VALSARTAN 40 MG TABLET (FP) PO SCH (11:04)
--- NOTE | 2016-04-12 11:35 | PN ---
Progress Note, Physician History of Present Illness: PULMONARY ALERT,OOB-CHAIR -CP,LESS COUGH,DYSPNEA IMPROVING - Current Medication List Current Medications: Active Medications Albuterol Sulfate (Ventolin 0.083% Nebulizer Soln -) 1 amp NEB Q6H PRN PRN Reason: SHORT OF BREATH/WHEEZING Last Admin: 04/12/16 00:50 Dose: 1 amp Alprazolam (Xanax -) 0.25 mg PO BID PRN Last Admin: 04/12/16 01:50 Dose: 0.25 mg Apixaban (Eliquis -) 5 mg PO BID [facility] Last Admin: 04/12/16 11:04 Dose: 2.5 mg Budesonide/Formoterol Fumarate (Symbicort 160/4.5mcg -) 2 puff IH BID [facility] Last Admin: 04/12/16 09:22 Dose: 2 puff Cholecalciferol (Vitamin D3 -) 2,000 unit PO DAILY [facility] Last Admin: 04/12/16 09:20 Dose: 2,000 unit Escitalopram Oxalate (Lexapro -) 10 mg PO DAILY [facility] Last Admin: 04/12/16 09:20 Dose: 10 mg Folic Acid (Folic Acid -) 1 mg PO DAILY [facility] Last Admin: 04/12/16 09:20 Dose: 1 mg Furosemide (Lasix Injection -) 20 mg IVPB DAILY [facility] Last Admin: 04/12/16 09:19 Dose: 20 mg Gabapentin (Neurontin -) 300 mg PO TID [facility] Last Admin: 04/12/16 05:07 Dose: 300 mg Levothyroxine Sodium 75 mcg/ (Levothyroxine Sodium 100 mcg) 175 mcg PO DAILY@ 0700 [facility] Last Admin: 04/12/16 06:03 Dose: 175 mcg Lorazepam (Ativan -) 1 mg PO BID PRN PRN Reason: ANXIETY Last Admin: 04/09/16 22:16 Dose: 1 mg Methylprednisolone Sodium Succinate (Solu-Medrol -) 40 mg IVPB BID [facility] Last Admin: 04/12/16 09:19 Dose: 40 mg Nebivolol (Bystolic -) 10 mg PO DAILY [facility] Last Admin: 04/12/16 11:05 Dose: 5 mg Pantoprazole Sodium (Protonix -) 20 mg PO DAILY [facility] Last Admin: 04/12/16 09:20 Dose: 20 mg Ranitidine HCl (Zantac -) 300 mg PO HS [facility] Last Admin: 04/11/16 21:11 Dose: 300 mg Tiotropium [place] (Spiriva -) 1 puff IH DAILY [facility] Last Admin: 04/12/16 09:21 Dose: 1 puff Valsartan (Diovan -) 40 mg PO DAILY [facility] Last Admin: 04/12/16 11:04 Dose: 40 mg Zolpidem Tartrate (Ambien -) 5 mg PO HS PRN PRN Reason: INSOMNIA Last Admin: 04/11/16 21:11 Dose: 5 mg - Objective Vital Signs: Vital Signs Temperature 98.2 F 04/12/16 10:00 Pulse Rate 100 H 04/12/16 11:07 Respiratory Rate 18 04/12/16 10:00 Blood Pressure 139/88 04/12/16 11:07 O2 Sat by Pulse Oximetry (%) 98 04/11/16 21:00 Constitutional: Yes: Well Nourished, Calm Eyes: Yes: WNL HENT: Yes: WNL Neck: Yes: WNL Cardiovascular: Yes: Pulse Irregular, S1, S2 Respiratory: Yes: Diminished Gastrointestinal: Yes: WNL Extremities: Yes: WNL Edema: Yes Labs: CBC, BMP 04/12/16 06:20 04/12/16 06:20 INR, PTT INR 1.31 (0.82-1.09) H 04/07/16 13:00 Problem List - Problems (1) Acute bronchitis with COPD Code(s): J44.0 - CHRONIC OBSTRUCTIVE PULMON DISEASE W ACUTE LOWER RESP INFCT (2) Anemia Code(s): D64.9 - ANEMIA, UNSPECIFIED (3) CAD (coronary artery disease) Code(s): I25.10 - ATHSCL HEART DISEASE OF [place] CORONARY ARTERY W/O ANG PCTRS Qualifiers: Coronary Disease-Associated Artery/Lesion type: [place] artery [place] vs. transplanted heart: [place] heart Associated angina: without angina Qualified Code(s): I25.10 - Atherosclerotic heart disease of [place] coronary artery without angina pectoris (4) DU (dyspnea on exertion) Code(s): R06.09 - OTHER FORMS OF DYSPNEA (5) Pulmonary hypertension Code(s): I27.2 - OTHER SECONDARY PULMONARY HYPERTENSION (6) Shortness of breath Code(s): R06.02 - SHORTNESS OF BREATH (7) A-fib Code(s): I48.91 - UNSPECIFIED ATRIAL FIBRILLATION Qualifiers: Atrial fibrillation type: persistent Qualified Code(s): I48.1 - Persistent atrial fibrillation (8) History of breast cancer Code(s): Z85.3 - PERSONAL HISTORY OF MALIGNANT NEOPLASM OF BREAST (9) Hypertension Code(s): I10 - ESSENTIAL (PRIMARY) HYPERTENSION Qualifiers: Hypertension type: essential hypertension Qualified Code(s): I10 - Essential (primary) hypertension (10) Rheumatoid arthritis Code(s): M06.9 - RHEUMATOID ARTHRITIS, UNSPECIFIED Qualifiers: Rheumatoid arthritis location: unspecified site (11) Asthmatic bronchitis with exacerbation Code(s): J45.901 - UNSPECIFIED ASTHMA WITH (ACUTE) EXACERBATION Assessment/Plan IMP ACUTE ASTHMATIC BRONCHITIS IMPROVING RECENT PNEUMONIA AFIB HTN PULMONARY HTN DIASTOLIC HF ANXIETY RA PLAN CONTINUE STEROID TAPER INHALED BRONCHODILATORS NASAL O2 ANTICOAGULATION DR QUINN Problem List - Problems (1) Acute bronchitis with COPD Code(s): J44.0 - CHRONIC OBSTRUCTIVE PULMON DISEASE W ACUTE LOWER RESP INFCT (2) Anemia Code(s): D64.9 - ANEMIA, UNSPECIFIED (3) CAD (coronary artery disease) Code(s): I25.10 - ATHSCL HEART DISEASE OF [place] CORONARY ARTERY W/O ANG PCTRS Qualifiers: Coronary Disease-Associated Artery/Lesion type: [place] artery [place] vs. transplanted heart: [place] heart Associated angina: without angina Qualified Code(s): I25.10 - Atherosclerotic heart disease of [place] coronary artery without angina pectoris (4) DU (dyspnea on exertion) Code(s): R06.09 - OTHER FORMS OF DYSPNEA (5) Pulmonary hypertension Code(s): I27.2 - OTHER SECONDARY PULMONARY HYPERTENSION (6) Shortness of breath Code(s): R06.02 - SHORTNESS OF BREATH (7) A-fib Code(s): I48.91 - UNSPECIFIED ATRIAL FIBRILLATION Qualifiers: Atrial fibrillation type: persistent Qualified Code(s): I48.1 - Persistent atrial fibrillation (8) History of breast cancer Code(s): Z85.3 - PERSONAL HISTORY OF MALIGNANT NEOPLASM OF BREAST (9) Hypertension Code(s): I10 - ESSENTIAL (PRIMARY) HYPERTENSION Qualifiers: Hypertension type: essential hypertension Qualified Code(s): I10 - Essential (primary) hypertension (10) Rheumatoid arthritis Code(s): M06.9 - RHEUMATOID ARTHRITIS, UNSPECIFIED Qualifiers: Rheumatoid arthritis location: unspecified site (11) Asthmatic bronchitis with exacerbation Code(s): J45.901 - UNSPECIFIED ASTHMA WITH (ACUTE) EXACERBATION
--- NOTE | 2016-04-12 12:12 | PN ---
Progress Note, Physician History of Present Illness: Pt states that is breathing better today . Pt. w/o CP, palp., dizziness, abd pain. Pt with " a little" leg swelling, better now. - Current Medication List Current Medications: Active Medications Albuterol Sulfate (Ventolin 0.083% Nebulizer Soln -) 1 amp NEB Q6H PRN PRN Reason: SHORT OF BREATH/WHEEZING Last Admin: 04/12/16 00:50 Dose: 1 amp Alprazolam (Xanax -) 0.25 mg PO BID PRN Last Admin: 04/12/16 01:50 Dose: 0.25 mg Apixaban (Eliquis -) 5 mg PO BID [facility] Last Admin: 04/12/16 11:04 Dose: 2.5 mg Budesonide/Formoterol Fumarate (Symbicort 160/4.5mcg -) 2 puff IH BID [facility] Last Admin: 04/12/16 09:22 Dose: 2 puff Cholecalciferol (Vitamin D3 -) 2,000 unit PO DAILY [facility] Last Admin: 04/12/16 09:20 Dose: 2,000 unit Escitalopram Oxalate (Lexapro -) 10 mg PO DAILY [facility] Last Admin: 04/12/16 09:20 Dose: 10 mg Folic Acid (Folic Acid -) 1 mg PO DAILY [facility] Last Admin: 04/12/16 09:20 Dose: 1 mg Furosemide (Lasix Injection -) 20 mg IVPB DAILY [facility] Last Admin: 04/12/16 09:19 Dose: 20 mg Gabapentin (Neurontin -) 300 mg PO TID [facility] Last Admin: 04/12/16 05:07 Dose: 300 mg Levothyroxine Sodium 75 mcg/ (Levothyroxine Sodium 100 mcg) 175 mcg PO DAILY@ 0700 [facility] Last Admin: 04/12/16 06:03 Dose: 175 mcg Lorazepam (Ativan -) 1 mg PO BID PRN PRN Reason: ANXIETY Last Admin: 04/09/16 22:16 Dose: 1 mg Nebivolol (Bystolic -) 10 mg PO DAILY [facility] Last Admin: 04/12/16 11:05 Dose: 5 mg Pantoprazole Sodium (Protonix -) 20 mg PO DAILY [facility] Last Admin: 04/12/16 09:20 Dose: 20 mg Prednisone (Deltasone -) 40 mg PO DAILY [facility] Ranitidine HCl (Zantac -) 300 mg PO HS [facility] Last Admin: 04/11/16 21:11 Dose: 300 mg Tiotropium [place] (Spiriva -) 1 puff IH DAILY [facility] Last Admin: 04/12/16 09:21 Dose: 1 puff Valsartan (Diovan -) 40 mg PO DAILY [facility] Last Admin: 04/12/16 11:04 Dose: 40 mg Zolpidem Tartrate (Ambien -) 5 mg PO HS PRN PRN Reason: INSOMNIA Last Admin: 04/11/16 21:11 Dose: 5 mg - Objective Vital Signs: Vital Signs Temperature 98.2 F 04/12/16 10:00 Pulse Rate 100 H 04/12/16 11:07 Respiratory Rate 18 04/12/16 10:00 Blood Pressure 139/88 04/12/16 11:07 O2 Sat by Pulse Oximetry (%) 98 04/11/16 21:00 Constitutional: Yes: No Distress, Calm Cardiovascular: Yes: Regular Rate and Rhythm, S1, S2 Respiratory: Yes: Regular, Wheezes (expiratory) Gastrointestinal: Yes: Normal Bowel Sounds, Soft. No: Tenderness Edema: LLE: 1+, RLE: 1+ Labs: CBC, BMP 04/12/16 06:20 04/12/16 06:20 INR, PTT INR 1.31 (0.82-1.09) H 04/07/16 13:00 Problem List - Problems (1) Acute bronchitis with COPD Assessment/Plan: on IV steroids- nella per pulmonary Pulmonary consult appreciated Code(s): J44.0 - CHRONIC OBSTRUCTIVE PULMON DISEASE W ACUTE LOWER RESP INFCT (2) CAD (coronary artery disease) Assessment/Plan: Pt. with elevated BNP. Last ECHO report was reviewed, normal LV function; Probable Diastolic Heart failure Cardio consult and f/u appreciated. Code(s): I25.10 - ATHSCL HEART DISEASE OF [place] CORONARY ARTERY W/O ANG PCTRS Qualifiers: Coronary Disease-Associated Artery/Lesion type: [place] artery [place] vs. transplanted heart: [place] heart Associated angina: without angina Qualified Code(s): I25.10 - Atherosclerotic heart disease of [place] coronary artery without angina pectoris (3) A-fib Assessment/Plan: on AC- dose was adjusted by Cardio Code(s): I48.91 - UNSPECIFIED ATRIAL FIBRILLATION Qualifiers: Atrial fibrillation type: persistent Qualified Code(s): I48.1 - Persistent atrial fibrillation (4) Hypertension Assessment/Plan: cont. current meds Code(s): I10 - ESSENTIAL (PRIMARY) HYPERTENSION Qualifiers: Hypertension type: essential hypertension Qualified Code(s): I10 - Essential (primary) hypertension (5) Pulmonary hypertension Code(s): I27.2 - OTHER SECONDARY PULMONARY HYPERTENSION (6) Anemia Code(s): D64.9 - ANEMIA, UNSPECIFIED (7) Rheumatoid arthritis Code(s): M06.9 - RHEUMATOID ARTHRITIS, UNSPECIFIED Qualifiers: Rheumatoid arthritis location: unspecified site (8) Leukocytosis Code(s): D72.829 - ELEVATED WHITE BLOOD CELL COUNT, UNSPECIFIED (9) Anxiety Code(s): F41.9 - ANXIETY DISORDER, UNSPECIFIED (10) Diastolic CHF Assessment/Plan: on IV Lasix. f/u AM Labs Code(s): I50.30 - UNSPECIFIED DIASTOLIC (CONGESTIVE) HEART FAILURE
[2016-04-12] MEDS ORDERED: ALBUTEROL SO4 0.083% IH SOL 2.5 MG/3 ML VIAL.NEB. NEB PRN (21:42)
[2016-04-12] MEDS: RANITIDINE HCL 150 MG TABLET (FP) PO SCH (21:45)
[2016-04-12] MEDS: ZOLPIDEM TARTRATE 5 MG TABLET PO PRN (21:45)
[2016-04-13] MEDS: ALPRAZolam 0.25 MG TABLET PO PRN (00:23)
[2016-04-13] MEDS ORDERED: LEVOTHYROXINE NA 75 MCG TABLET (FP) ONE (05:52)
[2016-04-13] MEDS ORDERED: LEVOTHYROXINE NA 100 MCG TABLET (FP) ONE (05:52)
[2016-04-13] MEDS: GABAPENTIN 300 MG CAPSULE (FP) PO SCH ×3 (05:55→21:34)
[2016-04-13] MEDS: LEVOTHYROXINE 75 MCG, LEVOTHYROXINE 100 MCG PO SCH (06:03)
[2016-04-13 06:31] LABS: MCH 26.6 pg (25.7-33.7); MCHC 31.1 g/dl (32.0-36.0); MEAN CELL VOLUME 85.7 fl (80-96); MEAN PLT VOLUME 9.2 fl (7.5-11.1); PLATELET COUNT 242 K/MM3 (134-434); RDW 18.7 % (11.6-15.6); WHITE BLOOD COUNT 17.9 K/mm3 (4.0-10.0)
[2016-04-13 06:56] LABS: CALCIUM 8.5 mg/dL (8.5-10.1); CREATININE 0.9 mg/dL (0.55-1.02)
[2016-04-13] MEDS: predniSONE 20 MG TABLET (UD) PO SCH (09:05)
[2016-04-13] MEDS: APIXABAN 2.5 MG TABLET PO SCH ×2 (09:05→21:34)
[2016-04-13] MEDS: PANTOPRAZOLE 20 MG TABLET (FP) PO SCH (09:05)
[2016-04-13] MEDS: VALSARTAN 40 MG TABLET (FP) PO SCH (09:05)
[2016-04-13] MEDS: NEBIVOLOL 10 MG TABLET (FP) PO SCH (09:05)
[2016-04-13] MEDS: FOLIC ACID 1 MG TABLET (FP) PO SCH (09:05)
[2016-04-13] MEDS: ESCITALOPRAM OXALATE 10 MG TABLET (FP) PO SCH (09:05)
[2016-04-13] MEDS: FUROSEMIDE 40 MG/4 ML INJECTABLE VIAL IVPB SCH (09:05)
[2016-04-13] MEDS: CHOLECALCIFEROL (VITAMIN D3) 1,000 UNIT TABLET (FP) PO SCH (09:05)
[2016-04-13] MEDS: TIOTROPIUM BROMIDE 18 MCG/INH (DEVICE W/ 5 CAPSULES) IH SCH (09:06)
[2016-04-13] MEDS: BUDESONIDE/FORMETEROL FUMARATE 160/4.5 mcg INHALER IH SCH ×2 (09:06→21:35)
--- NOTE | 2016-04-13 11:12 | PN ---
Progress Note, Physician History of Present Illness: PULMONARY ALERT,FEELING BETTER,-SOB,LESS COUGH - Current Medication List Current Medications: Active Medications Albuterol Sulfate (Ventolin 0.083% Nebulizer Soln -) 1 amp NEB Q6H PRN PRN Reason: SHORT OF BREATH/WHEEZING Last Admin: 04/12/16 23:10 Dose: 1 amp Alprazolam (Xanax -) 0.25 mg PO BID PRN Last Admin: 04/13/16 00:23 Dose: 0.25 mg Apixaban (Eliquis -) 5 mg PO BID [facility] Last Admin: 04/13/16 09:05 Dose: 5 mg Budesonide/Formoterol Fumarate (Symbicort 160/4.5mcg -) 2 puff IH BID [facility] Last Admin: 04/13/16 09:06 Dose: 2 puff Cholecalciferol (Vitamin D3 -) 2,000 unit PO DAILY [facility] Last Admin: 04/13/16 09:05 Dose: 2,000 unit Escitalopram Oxalate (Lexapro -) 10 mg PO DAILY [facility] Last Admin: 04/13/16 09:05 Dose: 10 mg Folic Acid (Folic Acid -) 1 mg PO DAILY [facility] Last Admin: 04/13/16 09:05 Dose: 1 mg Furosemide (Lasix Injection -) 20 mg IVPB DAILY [facility] Last Admin: 04/13/16 09:05 Dose: 20 mg Gabapentin (Neurontin -) 300 mg PO TID [facility] Last Admin: 04/13/16 05:55 Dose: 300 mg Levothyroxine Sodium 75 mcg/ (Levothyroxine Sodium 100 mcg) 175 mcg PO DAILY@ 0700 [facility] Last Admin: 04/13/16 06:03 Dose: 175 mcg Lorazepam (Ativan -) 1 mg PO BID PRN PRN Reason: ANXIETY Last Admin: 04/09/16 22:16 Dose: 1 mg Nebivolol (Bystolic -) 10 mg PO DAILY [facility] Last Admin: 04/13/16 09:05 Dose: 10 mg Pantoprazole Sodium (Protonix -) 20 mg PO DAILY [facility] Last Admin: 04/13/16 09:05 Dose: 20 mg Prednisone (Deltasone -) 40 mg PO DAILY [facility] Last Admin: 04/13/16 09:05 Dose: 40 mg Ranitidine HCl (Zantac -) 300 mg PO HS [facility] Last Admin: 04/12/16 21:45 Dose: 300 mg Tiotropium [place] (Spiriva -) 1 puff IH DAILY [facility] Last Admin: 04/13/16 09:06 Dose: 1 puff Valsartan (Diovan -) 40 mg PO DAILY [facility] Last Admin: 04/13/16 09:05 Dose: 40 mg Zolpidem Tartrate (Ambien -) 5 mg PO HS PRN PRN Reason: INSOMNIA Last Admin: 04/12/16 21:45 Dose: 5 mg - Objective Vital Signs: Vital Signs Temperature 98.4 F 04/13/16 09:03 Pulse Rate 94 H 04/13/16 09:03 Respiratory Rate 18 04/13/16 10:00 Blood Pressure 131/71 04/13/16 09:03 O2 Sat by Pulse Oximetry (%) 98 04/11/16 21:00 Constitutional: Yes: Well Nourished, Calm Eyes: Yes: WNL HENT: Yes: WNL Neck: Yes: WNL Cardiovascular: Yes: Pulse Irregular, S1, S2 Respiratory: Yes: Diminished Gastrointestinal: Yes: Normal Bowel Sounds, Soft Extremities: Yes: WNL Edema: No Labs: CBC, BMP 04/13/16 05:38 04/13/16 05:38 INR, PTT INR 1.31 (0.82-1.09) H 04/07/16 13:00 Problem List - Problems (1) Acute bronchitis with COPD Code(s): J44.0 - CHRONIC OBSTRUCTIVE PULMON DISEASE W ACUTE LOWER RESP INFCT (2) Anemia Code(s): D64.9 - ANEMIA, UNSPECIFIED (3) CAD (coronary artery disease) Code(s): I25.10 - ATHSCL HEART DISEASE OF [place] CORONARY ARTERY W/O ANG PCTRS Qualifiers: Coronary Disease-Associated Artery/Lesion type: [place] artery [place] vs. transplanted heart: [place] heart Associated angina: without angina Qualified Code(s): I25.10 - Atherosclerotic heart disease of [place] coronary artery without angina pectoris (4) DU (dyspnea on exertion) Code(s): R06.09 - OTHER FORMS OF DYSPNEA (5) Pulmonary hypertension Code(s): I27.2 - OTHER SECONDARY PULMONARY HYPERTENSION (6) Shortness of breath Code(s): R06.02 - SHORTNESS OF BREATH (7) A-fib Code(s): I48.91 - UNSPECIFIED ATRIAL FIBRILLATION Qualifiers: Atrial fibrillation type: persistent Qualified Code(s): I48.1 - Persistent atrial fibrillation (8) History of breast cancer Code(s): Z85.3 - PERSONAL HISTORY OF MALIGNANT NEOPLASM OF BREAST (9) Hypertension Code(s): I10 - ESSENTIAL (PRIMARY) HYPERTENSION Qualifiers: Hypertension type: essential hypertension Qualified Code(s): I10 - Essential (primary) hypertension (10) Rheumatoid arthritis Code(s): M06.9 - RHEUMATOID ARTHRITIS, UNSPECIFIED Qualifiers: Rheumatoid arthritis location: unspecified site (11) Asthmatic bronchitis with exacerbation Code(s): J45.901 - UNSPECIFIED ASTHMA WITH (ACUTE) EXACERBATION Assessment/Plan IMP ACUTE ASTHMATIC BRONCHITIS IMPROVING RECENT PNEUMONIA AFIB HTN PULMONARY HTN DIASTOLIC HF ANXIETY RA PLAN PREDNISONE TAPER INHALED BRONCHODILATORS NASAL O2 ANTICOAGULATION DR QUINN Problem List - Problems (1) Acute bronchitis with COPD Code(s): J44.0 - CHRONIC OBSTRUCTIVE PULMON DISEASE W ACUTE LOWER RESP INFCT (2) Anemia Code(s): D64.9 - ANEMIA, UNSPECIFIED (3) CAD (coronary artery disease) Code(s): I25.10 - ATHSCL HEART DISEASE OF [place] CORONARY ARTERY W/O ANG PCTRS Qualifiers: Coronary Disease-Associated Artery/Lesion type: [place] artery [place] vs. transplanted heart: [place] heart Associated angina: without angina Qualified Code(s): I25.10 - Atherosclerotic heart disease of [place] coronary artery without angina pectoris (4) DU (dyspnea on exertion) Code(s): R06.09 - OTHER FORMS OF DYSPNEA (5) Pulmonary hypertension Code(s): I27.2 - OTHER SECONDARY PULMONARY HYPERTENSION (6) Shortness of breath Code(s): R06.02 - SHORTNESS OF BREATH (7) A-fib Code(s): I48.91 - UNSPECIFIED ATRIAL FIBRILLATION Qualifiers: Atrial fibrillation type: persistent Qualified Code(s): I48.1 - Persistent atrial fibrillation (8) History of breast cancer Code(s): Z85.3 - PERSONAL HISTORY OF MALIGNANT NEOPLASM OF BREAST (9) Hypertension Code(s): I10 - ESSENTIAL (PRIMARY) HYPERTENSION Qualifiers: Hypertension type: essential hypertension Qualified Code(s): I10 - Essential (primary) hypertension (10) Rheumatoid arthritis Code(s): M06.9 - RHEUMATOID ARTHRITIS, UNSPECIFIED Qualifiers: Rheumatoid arthritis location: unspecified site (11) Asthmatic bronchitis with exacerbation Code(s): J45.901 - UNSPECIFIED ASTHMA WITH (ACUTE) EXACERBATION
--- NOTE | 2016-04-13 11:24 | PN ---
Progress Note, Physician History of Present Illness: Dyspnea, wheeze and cough resolving. - Current Medication List Current Medications: Active Medications Albuterol Sulfate (Ventolin 0.083% Nebulizer Soln -) 1 amp NEB Q6H PRN PRN Reason: SHORT OF BREATH/WHEEZING Last Admin: 04/12/16 23:10 Dose: 1 amp Alprazolam (Xanax -) 0.25 mg PO BID PRN Last Admin: 04/13/16 00:23 Dose: 0.25 mg Apixaban (Eliquis -) 5 mg PO BID [facility] Last Admin: 04/13/16 09:05 Dose: 5 mg Budesonide/Formoterol Fumarate (Symbicort 160/4.5mcg -) 2 puff IH BID [facility] Last Admin: 04/13/16 09:06 Dose: 2 puff Cholecalciferol (Vitamin D3 -) 2,000 unit PO DAILY [facility] Last Admin: 04/13/16 09:05 Dose: 2,000 unit Escitalopram Oxalate (Lexapro -) 10 mg PO DAILY [facility] Last Admin: 04/13/16 09:05 Dose: 10 mg Folic Acid (Folic Acid -) 1 mg PO DAILY [facility] Last Admin: 04/13/16 09:05 Dose: 1 mg Furosemide (Lasix Injection -) 20 mg IVPB DAILY [facility] Last Admin: 04/13/16 09:05 Dose: 20 mg Gabapentin (Neurontin -) 300 mg PO TID [facility] Last Admin: 04/13/16 05:55 Dose: 300 mg Levothyroxine Sodium 75 mcg/ (Levothyroxine Sodium 100 mcg) 175 mcg PO DAILY@ 0700 [facility] Last Admin: 04/13/16 06:03 Dose: 175 mcg Lorazepam (Ativan -) 1 mg PO BID PRN PRN Reason: ANXIETY Last Admin: 04/09/16 22:16 Dose: 1 mg Nebivolol (Bystolic -) 10 mg PO DAILY [facility] Last Admin: 04/13/16 09:05 Dose: 10 mg Pantoprazole Sodium (Protonix -) 20 mg PO DAILY [facility] Last Admin: 04/13/16 09:05 Dose: 20 mg Prednisone (Deltasone -) 40 mg PO DAILY [facility] Last Admin: 04/13/16 09:05 Dose: 40 mg Ranitidine HCl (Zantac -) 300 mg PO HS [facility] Last Admin: 04/12/16 21:45 Dose: 300 mg Tiotropium [place] (Spiriva -) 1 puff IH DAILY [facility] Last Admin: 04/13/16 09:06 Dose: 1 puff Valsartan (Diovan -) 40 mg PO DAILY [facility] Last Admin: 04/13/16 09:05 Dose: 40 mg - Objective Vital Signs: Vital Signs Temperature 98.4 F 04/13/16 09:03 Pulse Rate 94 H 04/13/16 09:03 Respiratory Rate 18 04/13/16 10:00 Blood Pressure 131/71 04/13/16 09:03 O2 Sat by Pulse Oximetry (%) 98 04/11/16 21:00 Constitutional: Yes: No Distress, Calm Neck: Yes: Supple Cardiovascular: Yes: Regular Rate and Rhythm Respiratory: Yes: Regular, Diminished, On Nasal O2 Gastrointestinal: Yes: Normal Bowel Sounds, Soft, Abdomen, Obese Edema: Yes Edema: LLE: Trace, RLE: Trace Labs: CBC, BMP 04/13/16 05:38 04/13/16 05:38 INR, PTT INR 1.31 (0.82-1.09) H 04/07/16 13:00 Problem List - Problems (1) Acute bronchitis with COPD Code(s): J44.0 - CHRONIC OBSTRUCTIVE PULMON DISEASE W ACUTE LOWER RESP INFCT (2) Shortness of breath Code(s): R06.02 - SHORTNESS OF BREATH (3) A-fib Code(s): I48.91 - UNSPECIFIED ATRIAL FIBRILLATION Qualifiers: Atrial fibrillation type: persistent Qualified Code(s): I48.1 - Persistent atrial fibrillation (4) Hypertension Code(s): I10 - ESSENTIAL (PRIMARY) HYPERTENSION Qualifiers: Hypertension type: essential hypertension Qualified Code(s): I10 - Essential (primary) hypertension (5) Hypothyroidism Code(s): E03.9 - HYPOTHYROIDISM, UNSPECIFIED Qualifiers: Hypothyroidism type: unspecified Qualified Code(s): E03.9 - Hypothyroidism, unspecified (6) Rheumatoid arthritis Code(s): M06.9 - RHEUMATOID ARTHRITIS, UNSPECIFIED Qualifiers: Rheumatoid arthritis location: unspecified site (7) Polymyalgia rheumatica Code(s): M35.3 - POLYMYALGIA RHEUMATICA (8) Anemia Code(s): D64.9 - ANEMIA, UNSPECIFIED Assessment/Plan 06/05/2015 Echo shows normal LV size and fxn, mod CHEKO, mod TR, mild MR, RVSP 40- 50 mmHg, 06/05/2015 Holter: SR theodore PAC 1. AE COPD improving 2. Dysequilibrium, gait disturbance, orthostasis, mechanical falls referable to medication effect (ambien, ativan, amphetamine) 3. Persistent atrial fibrillation 4. Diastolic dysfunction, euvolemic 5. HTN/HCVD 6. RA maintained on MTX, prednisone 7. Spinal stenosis, compression fractures 8. Hypothyroidism 9. Anxiety P:1. BD, oral steroid taper, O2 as needed to maintain saO2 2. Continue Bystolic 10 qd, Eliquis 5 bid, Lasix 20 qd and Diovan 40 qd 3. PT, gait training, fall precautions 4. DVT and GI prophylaxis, d/c planning
--- NOTE | 2016-04-13 18:16 | PN ---
Progress Note, Physician History of Present Illness: Pt states that is breathing better today . Pt. w/o CP, palp., dizziness, abd pain. Pt with leg swelling, same. - Current Medication List Current Medications: Active Medications Albuterol Sulfate (Ventolin 0.083% Nebulizer Soln -) 1 amp NEB Q6H PRN PRN Reason: SHORT OF BREATH/WHEEZING Last Admin: 04/12/16 23:10 Dose: 1 amp Alprazolam (Xanax -) 0.25 mg PO BID PRN Last Admin: 04/13/16 00:23 Dose: 0.25 mg Apixaban (Eliquis -) 5 mg PO BID [facility] Last Admin: 04/13/16 09:05 Dose: 5 mg Budesonide/Formoterol Fumarate (Symbicort 160/4.5mcg -) 2 puff IH BID [facility] Last Admin: 04/13/16 09:06 Dose: 2 puff Cholecalciferol (Vitamin D3 -) 2,000 unit PO DAILY [facility] Last Admin: 04/13/16 09:05 Dose: 2,000 unit Escitalopram Oxalate (Lexapro -) 10 mg PO DAILY [facility] Last Admin: 04/13/16 09:05 Dose: 10 mg Folic Acid (Folic Acid -) 1 mg PO DAILY [facility] Last Admin: 04/13/16 09:05 Dose: 1 mg Furosemide (Lasix Injection -) 20 mg IVPB DAILY [facility] Last Admin: 04/13/16 09:05 Dose: 20 mg Gabapentin (Neurontin -) 300 mg PO TID [facility] Last Admin: 04/13/16 13:23 Dose: 300 mg Levothyroxine Sodium 75 mcg/ (Levothyroxine Sodium 100 mcg) 175 mcg PO DAILY@ 0700 [facility] Last Admin: 04/13/16 06:03 Dose: 175 mcg Lorazepam (Ativan -) 1 mg PO BID PRN PRN Reason: ANXIETY Last Admin: 04/09/16 22:16 Dose: 1 mg Nebivolol (Bystolic -) 10 mg PO DAILY [facility] Last Admin: 04/13/16 09:05 Dose: 10 mg Pantoprazole Sodium (Protonix -) 20 mg PO DAILY [facility] Last Admin: 04/13/16 09:05 Dose: 20 mg Prednisone (Deltasone -) 40 mg PO DAILY [facility] Last Admin: 04/13/16 09:05 Dose: 40 mg Ranitidine HCl (Zantac -) 300 mg PO HS [facility] Last Admin: 04/12/16 21:45 Dose: 300 mg Tiotropium [place] (Spiriva -) 1 puff IH DAILY [facility] Last Admin: 04/13/16 09:06 Dose: 1 puff Valsartan (Diovan -) 40 mg PO DAILY [facility] Last Admin: 04/13/16 09:05 Dose: 40 mg - Objective Vital Signs: Vital Signs Temperature 98.8 F 04/13/16 15:00 Pulse Rate 94 H 04/13/16 15:00 Respiratory Rate 18 04/13/16 15:00 Blood Pressure 126/86 04/13/16 15:00 O2 Sat by Pulse Oximetry (%) 98 04/11/16 21:00 Constitutional: Yes: No Distress, Calm Cardiovascular: Yes: Regular Rate and Rhythm, S1, S2 Respiratory: Yes: Regular, CTA Bilaterally. No: Rales Gastrointestinal: Yes: Normal Bowel Sounds, Soft, Abdomen, Obese. No: Tenderness Edema: LLE: 1+, RLE: 1+ Neurological: Yes: Alert, Oriented Labs: CBC, BMP 04/13/16 05:38 04/13/16 05:38 INR, PTT INR 1.31 (0.82-1.09) H 04/07/16 13:00 Problem List - Problems (1) Acute bronchitis with COPD Assessment/Plan: on IV steroids- nella per pulmonary, now on PO Pulmonary consult appreciated Code(s): J44.0 - CHRONIC OBSTRUCTIVE PULMON DISEASE W ACUTE LOWER RESP INFCT (2) CAD (coronary artery disease) Assessment/Plan: Pt. with elevated BNP. Last ECHO report was reviewed, normal LV function; Probable Diastolic Heart failure Cardio consult and f/u appreciated. Code(s): I25.10 - ATHSCL HEART DISEASE OF [place] CORONARY ARTERY W/O ANG PCTRS Qualifiers: Coronary Disease-Associated Artery/Lesion type: [place] artery [place] vs. transplanted heart: [place] heart Associated angina: without angina Qualified Code(s): I25.10 - Atherosclerotic heart disease of [place] coronary artery without angina pectoris (3) A-fib Assessment/Plan: on AC- dose was adjusted by Cardio Code(s): I48.91 - UNSPECIFIED ATRIAL FIBRILLATION Qualifiers: Atrial fibrillation type: persistent Qualified Code(s): I48.1 - Persistent atrial fibrillation (4) Hypertension Assessment/Plan: cont. current meds Code(s): I10 - ESSENTIAL (PRIMARY) HYPERTENSION Qualifiers: Hypertension type: essential hypertension Qualified Code(s): I10 - Essential (primary) hypertension (5) Pulmonary hypertension Code(s): I27.2 - OTHER SECONDARY PULMONARY HYPERTENSION (6) Anemia Assessment/Plan: Chronic Probable of chronic disease- RA; to f/u Iron studies Code(s): D64.9 - ANEMIA, UNSPECIFIED (7) Rheumatoid arthritis Assessment/Plan: On chronic Prednisone ( 5 mg daily) Code(s): M06.9 - RHEUMATOID ARTHRITIS, UNSPECIFIED Qualifiers: Rheumatoid arthritis location: unspecified site (8) Leukocytosis Assessment/Plan: Probable secondary to steroids Code(s): D72.829 - ELEVATED WHITE BLOOD CELL COUNT, UNSPECIFIED (9) Anxiety Assessment/Plan: PRN Xanax Code(s): F41.9 - ANXIETY DISORDER, UNSPECIFIED (10) Diastolic CHF Assessment/Plan: on IV Lasix. f/u AM Labs Code(s): I50.30 - UNSPECIFIED DIASTOLIC (CONGESTIVE) HEART FAILURE Assessment/Plan AM labs
[2016-04-13] MEDS ORDERED: ZOLPIDEM TARTRATE 5 MG TABLET PO PRN (21:07)
[2016-04-13] MEDS: RANITIDINE HCL 150 MG TABLET (FP) PO SCH (21:34)
[2016-04-13] MEDS ORDERED: PT OWN MED DRAWER 7, Y5N ONE (21:46)
[2016-04-14] MEDS ORDERED: LEVOTHYROXINE NA 100 MCG TABLET (FP) ONE (05:54)
[2016-04-14] MEDS ORDERED: LEVOTHYROXINE NA 75 MCG TABLET (FP) ONE (05:55)
[2016-04-14] MEDS: LEVOTHYROXINE 75 MCG, LEVOTHYROXINE 100 MCG PO SCH ×2 (05:58→06:01)
[2016-04-14] MEDS: GABAPENTIN 300 MG CAPSULE (FP) PO SCH ×2 (05:58→14:58)
[2016-04-14] MEDS: CHOLECALCIFEROL (VITAMIN D3) 1,000 UNIT TABLET (FP) PO SCH (09:33)
[2016-04-14] MEDS: VALSARTAN 40 MG TABLET (FP) PO SCH (09:33)
[2016-04-14] MEDS: PANTOPRAZOLE 20 MG TABLET (FP) PO SCH (09:33)
[2016-04-14] MEDS: predniSONE 20 MG TABLET (UD) PO SCH (09:33)
[2016-04-14] MEDS: FOLIC ACID 1 MG TABLET (FP) PO SCH (09:33)
[2016-04-14] MEDS: NEBIVOLOL 10 MG TABLET (FP) PO SCH (09:33)
[2016-04-14] MEDS: APIXABAN 2.5 MG TABLET PO SCH (09:33)
[2016-04-14] MEDS: ESCITALOPRAM OXALATE 10 MG TABLET (FP) PO SCH (09:33)
[2016-04-14] MEDS: FUROSEMIDE 40 MG/4 ML INJECTABLE VIAL IVPB SCH (09:34)
[2016-04-14] MEDS: TIOTROPIUM BROMIDE 18 MCG/INH (DEVICE W/ 5 CAPSULES) IH SCH (09:34)
[2016-04-14] MEDS: BUDESONIDE/FORMETEROL FUMARATE 160/4.5 mcg INHALER IH SCH (09:36)
--- NOTE | 2016-04-14 10:04 | PN ---
Progress Note (short form) - Note Progress Note: Chief Complaint: Events noted, notes reviewed, denies any chest pain, dyspnea improved History of Present Illness: Seen and examined on telemetry. Events noted, notes reviewed, denies any chest pain, dyspnea improved Echocardiography dated 06/05/2015 revealed normal LV size and function, moderate bi-atrial dilatation, mild MR, moderate TR with RVSP 40-50 mmHg - Current Medication List Current Medications Albuterol Sulfate (Ventolin 0.083% Nebulizer Soln -) 1 amp NEB Q6H PRN PRN Reason: SHORT OF BREATH/WHEEZING Last Admin: 04/12/16 23:10 Dose: 1 amp Apixaban (Eliquis -) 5 mg PO BID [facility] Last Admin: 04/14/16 09:33 Dose: 5 mg Budesonide/Formoterol Fumarate (Symbicort 160/4.5mcg -) 2 puff IH BID [facility] Last Admin: 04/14/16 09:36 Dose: 2 puff Cholecalciferol (Vitamin D3 -) 2,000 unit PO DAILY [facility] Last Admin: 04/14/16 09:33 Dose: 2,000 unit Escitalopram Oxalate (Lexapro -) 10 mg PO DAILY [facility] Last Admin: 04/14/16 09:33 Dose: 10 mg Folic Acid (Folic Acid -) 1 mg PO DAILY [facility] Last Admin: 04/14/16 09:33 Dose: 1 mg Furosemide (Lasix Injection -) 20 mg IVPB DAILY [facility] Last Admin: 04/14/16 09:34 Dose: 20 mg Gabapentin (Neurontin -) 300 mg PO TID [facility] Last Admin: 04/14/16 05:58 Dose: 300 mg Levothyroxine Sodium 75 mcg/ (Levothyroxine Sodium 100 mcg) 175 mcg PO DAILY@ 0700 [facility] Last Admin: 04/14/16 06:01 Dose: Not Given Lorazepam (Ativan -) 1 mg PO BID PRN PRN Reason: ANXIETY Last Admin: 04/09/16 22:16 Dose: 1 mg Nebivolol (Bystolic -) 10 mg PO DAILY [facility] Last Admin: 04/14/16 09:33 Dose: 10 mg Pantoprazole Sodium (Protonix -) 20 mg PO DAILY [facility] Last Admin: 04/14/16 09:33 Dose: 20 mg Prednisone (Deltasone -) 40 mg PO DAILY [facility] Last Admin: 04/14/16 09:33 Dose: 40 mg Ranitidine HCl (Zantac -) 300 mg PO HS [facility] Last Admin: 04/13/16 21:34 Dose: 300 mg Tiotropium [place] (Spiriva -) 1 puff IH DAILY [facility] Last Admin: 04/14/16 09:34 Dose: 1 puff Valsartan (Diovan -) 40 mg PO DAILY [facility] Last Admin: 04/14/16 09:33 Dose: 40 mg Zolpidem Tartrate (Ambien -) 5 mg PO HS [facility] Last Admin: 04/13/16 21:34 Dose: 5 mg Review of Systems Cardiovascular: As noted above Respiratory: reports: Persistent Cough Gastrointestinal: denies: Nausea, Vomiting, Diarrhea, Constipation or Abdominal Discomfort Musculoskeletal: No Symptoms Reported Endocrine: No Symptoms Reported - Objective Vital Signs: Last Vital Signs Temp Pulse Resp BP Pulse Ox 98.0 F 88 22 103/64 98 04/14/16 06:00 04/14/16 09:03 04/14/16 09:03 04/14/16 09:03 04/11/16 21:00 Constitutional: No Distress, Calm Neck: Supple Negative JVD No Bruit Cardiovascular: S1 S2 Irregularly Irregular Respiratory: Diminished Breath Sounds at the Bases Gastrointestinal: Soft Benign Normal Bowel Sounds Ext: No Edema Labs: CBC, BMP 04/13/16 05:38 04/13/16 05:38 Assessment/Plan ASSESSMENT: 1. Acute exacerbation of COPD, resolving 2. Persistent atrial fibrillation [id number] score of 5 on A/C with Eliquis ( adequate dose) 3. CAD angina pectoris 4. Diastolic dysfunction with chronic class I NYHA classification, euvolemic 5. HTN, at goal 6. Hypothyroidism 7. Rheumatoid arthritis 8. Spinal stenosis 9. compression fractures PLAN: 1. Continue Bystolic 2. Continue Eliquis at 5 mg twice daily (Wt. > 60 Kg and Creatinine < 1.5) 3. Continue Diovan 4. Bronchodilators and steroids as per the primary team 5. Ambulate and D/C home as per the primary team Brandy Nuñez MD
--- NOTE | 2016-04-14 13:43 | DS ---
Physical Examination Vital Signs: Vital Signs Temperature 98.0 F 04/14/16 06:00 Pulse Rate 101 H 04/14/16 11:38 Respiratory Rate 22 04/14/16 09:03 Blood Pressure 103/64 04/14/16 09:03 O2 Sat by Pulse Oximetry (%) 98 04/14/16 11:38 Findings/Remarks: Pt. w/o SOB, CP, DU, palpitaions, dizziness, cough, leg edema. Pt w/o abd pain , N, V. Constitutional: Yes: No Distress, Calm Cardiovascular: Yes: Regular Rate and Rhythm, S1, S2 Respiratory: Yes: Regular, CTA Bilaterally, Wheezes. No: Rales Gastrointestinal: Yes: Normal Bowel Sounds, Soft, Abdomen, Obese, Tenderness. No: Palpable Mass Edema: LLE: Trace, RLE: Trace Neurological: Yes: Alert, Oriented Labs: CBC, BMP 04/13/16 05:38 04/13/16 05:38 Discharge Summary Reason For Visit: DYSPNEA ON EXERTION/SOB Current Active Problems Acute bronchitis with COPD (Acute) Anemia (Acute) Anxiety (Acute) Asthmatic bronchitis with exacerbation (Acute) CAD (coronary artery disease) (Acute) DU (dyspnea on exertion) (Acute) Diastolic CHF (Acute) Polymyalgia rheumatica (Acute) Pulmonary hypertension (Acute) Shortness of breath (Acute) Procedures: Principal: CXRs Hospital Course: Pt. came to ER c/o progressive DU, SOB. Pt. was found to have Acute COPD Exacerbation, started on IV Steroids. Pt. was seen by Pulmonary (Dr. Burks) and Cardio ( Anselmo). Pt. with slowly improving, noticed to have leg edema, treated for few days with IV Lasix. Pt to be DC'ed home with f/u on PCP, Pulmonary, Cardio. Condition: Fair - Instructions Diet, Activity, Other Instructions: Diet: Low salt, NCS Patient needs CBC, CMP at next visit Referrals: Beatriz Simms MD [Primary Care Provider] - (within a week) Juan F Burks MD [Staff Physician] - (in 2-4 weeks) Frankie Briones MD [Staff Physician] - (in 1-2 weeks) Disposition: HOME - Home Medications Comprehensive Discharge Medication List: Ambulatory Orders This list might NOT reflect latest changes Escitalopram Oxalate [Lexapro -] 10 mg PO DAILY 07/20/11 Lorazepam [Ativan] 1 mg PO BID 07/20/11 Ranitidine HCl [Zantac] 300 mg PO HS 07/20/11 Apixaban [Eliquis] 2.5 mg PO BID 06/04/15 Folic Acid 1 mg PO DAILY 06/04/15 Gabapentin [Neurontin -] 300 mg PO Q8H 06/04/15 Omeprazole [Prilosec] 20 mg PO DAILY 06/04/15 Levothyroxine [Synthroid -] 175 mcg PO DAILY@0700 tablet 06/06/15 Zolpidem Tartrate [Ambien] 5 mg PO HS PRN #0 tablet MDD 5 mg 06/06/15 Cholecalciferol (Vitamin D3) [Vitamin D3] 2,000 unit PO DAILY 02/19/16 Prednisone [Deltasone -] 5 mg PO DAILY 02/19/16 Nebivolol [Bystolic -] 5 mg PO DAILY #90 tab 02/28/16
[2016-04-14 14:31] VITALS: BP 111/48; PULSE 90; TEMP 98
[2016-04-15] MEDS ORDERED: predniSONE 20 MG TABLET (UD) PO SCH (10:00)
== END 2016-04-14 15:33 | disposition home or self-care (01) | DRG 191 ==
LOC: JER 11:59 → JERBED 17:21 → J4S 21:26
PROVIDERS: ADMIT Internal Medicine; ATTEND Internal Medicine
DX: J44.0 Chronic obstructive pulmonary disease with (acute) lower respiratory infection (principal); J45.901 Unspecified asthma with (acute) exacerbation; I50.30 Unspecified diastolic (congestive) heart failure; I48.1 Persistent atrial fibrillation; J20.9 Acute bronchitis, unspecified; J44.1 Chronic obstructive pulmonary disease with (acute) exacerbation; M06.9 Rheumatoid arthritis, unspecified; E03.9 Hypothyroidism, unspecified; F32.9 Major depressive disorder, single episode, unspecified; F41.9 Anxiety disorder, unspecified; G47.00 Insomnia, unspecified; Z85.3 Personal history of malignant neoplasm of breast; I27.2 Other secondary pulmonary hypertension; D64.9 Anemia, unspecified; M35.3 Polymyalgia rheumatica; R29.6 Repeated falls; I07.1 Rheumatic tricuspid insufficiency; I25.119 Atherosclerotic heart disease of native coronary artery with unspecified angina pectoris; Z79.01 Long term (current) use of anticoagulants; I11.0 Hypertensive heart disease with heart failure; R60.0 Localized edema; Z98.61 Coronary angioplasty status
CPT/HCPCS: 36415; 71010-TC; 80048; 80053; 81003; 82550; 82607; 82803; 83540; 83880; 84443; 84484; 85025; 85027; 85610; 93005; 93010; 94640; 94761; 97116-GP; 97161-GP; 99285-25

== ENCOUNTER 2017-08-29 15:35 | Observation (INO) | payer BC, OTHER ==
--- NOTE | 2017-08-29 16:07 | PDOC ---
History of Present Illness - General Chief Complaint: Redness To Affected Area Stated Complaint: CELLULITIS Time Seen by Provider: 08/29/17 15:54 - History of Present Illness Initial Comments: 08/29/17 16:33 The patient is a 87-year old, with past medical history of persistent Afib on NOAC, JORY on home O2 nightly, Breast Ca (1999), diastolic dysfunction, steroid- dependent RA, nonobstructive CAD, MV prolapse with mod MR, TR on MAURILIO, OSAS on cpap anemia, HTN, hypothyroidism, and anxiety who presents with fatigue and right leg wound. She was recently discharged on from this hospital for COPD exacerbation and sent to rehab at [facility]. That day she reportedly fell and injured her right leg. She was sent today from [facility] after visit by Dr. Burks. Past History - Past Medical History Allergies/Adverse Reactions: Allergies Allergy/AdvReac Type Severity Reaction Status Date / Time Penicillins Allergy Verified 08/29/17 15:56 Sulfa (Sulfonamide Allergy Rash Verified 08/29/17 15:56 Antibiotics) [Sulfa(Sulfonamide Antibiotics)] Home Medications: Ambulatory Orders Methotrexate [Mexate -] 20 mg PO Q7D 08/19/17 Albuterol 0.083% Nebulizer Delfina [Ventolin 0.083% Nebulizer Soln -] 1 amp NEB Q6H PRN #0 vial MDD 4 08/25/17 Celecoxib 200 mg PO BID #0 tab MDD 2 08/25/17 Escitalopram Oxalate [Lexapro -] 10 mg PO DAILY #0 tab MDD 1 08/25/17 Fluticasone Propionate [Armonair Respiclick] 113 mcg IH BID 30 Days #1 aer.[email or web address] MDD 2 08/25/17 Gabapentin 300 mg PO TID #0 cap 08/25/17 Levothyroxine [Synthroid -] 150 mcg PO DAILY #90 tablet MDD 1 08/25/17 Montelukast Sodium [Singulair] 10 mg PO DAILY #0 tab MDD 1 08/25/17 Nebivolol HCl [Bystolic] 10 mg PO DAILY #0 tab MDD 1 08/25/17 Nystatin Oral Suspension - [Nystatin Oral Susp 775728 Units/5 ML -] 5 ml PO ASDIR #0 tsp MDD 4 08/25/17 Omeprazole 20 mg PO DAILY #0 cap MDD 1 08/25/17 Prednisone See Taper PO DAILY #21 tablet MDD 4 08/25/17 Ranitidine [Zantac -] 300 mg PO DAILY #0 tab MDD 1 08/25/17 Umeclidinium Brm/Vilanterol Tr [Anoro Ellipta 62.5-25 Mcg INH] 1 each IH DAILY # 0 puff MDD 1 08/25/17 Valsartan 40 mg PO DAILY #0 tab 08/25/17 Zolpidem Tartrate [Ambien] 10 mg PO HS #0 tab 08/25/17 Apixaban [Eliquis] 5 mg PO BID 08/29/17 Fluticasone Propionate [Arm[place]air Respiclick] 1 puff IH BID 08/29/17 Folic Acid 1 mg PO DAILY MDD 1 08/29/17 Anemia: Yes Asthma: Yes Cancer: Yes (LEFT BREAST) Cardiac Disorders: Yes (ATRIAL FIBRILLATION) CVA: No COPD: Yes CHF: Yes (HX.SOB) Dementia: No Diabetes: No GI Disorders: Yes Disorders: No HTN: Yes Hypercholesterolemia: Yes Liver Disease: No Seizures: No Thyroid Disease: Yes (HYPO) Other medical history: Rheumatoid polyneuropathy w/ rheumatoid arthritis - Surgical History Abdominal Surgery: Yes (HERNIA REPAIR) Appendectomy: No Cardiac Surgery: Yes (CARDIAC CATHERIZATION-07/10) Cholecystectomy: No Lung Surgery: No Neurologic Surgery: No Orthopedic Surgery: Yes (Oscar. Knee Replacement) - Immunization History Immunization Up to Date: Yes - Suicide/Smoking/Psychosocial Hx Smoking Status: No Smoking History: Never smoked Have you smoked in the past 12 months: No Number of Cigarettes Smoked Daily: 0 Information on smoking cessation initiated: No Hx Alcohol Use: No Drug/Substance Use Hx: No Substance Use Type: None Hx Substance Use Treatment: No Review of Systems - Review of Systems Able to Perform ROS?: Yes Is the patient limited [place] proficient: No Constitutional: Yes: Fever, Malaise HEENTM: Yes: Other (teary eyes) Respiratory: Yes: Symptoms reported, SOB with Exertion Cardiac (ROS): No: Symptoms Reported ABD/GI: No: Symptoms Reported : No: Symptoms Reported Musculoskeletal: No: Symptoms Reported Integumentary: Yes: Symptoms Reported, See HPI Neurological: No: Symptoms reported All Other Systems: Reviewed and Negative *Physical Exam - Vital Signs Last Vital Signs Temp Pulse Resp BP Pulse Ox 98.4 F 86 18 118/93 95 08/29/17 15:53 08/29/17 15:53 08/29/17 15:53 08/29/17 15:53 08/29/17 16:02 - Physical Exam General Appearance: Yes: Nourished, Appropriately Dressed. No: Apparent Distress HEENT: positive: EOMI, LETICIA Respiratory/Chest: positive: Labored Respiration, Wheezing. negative: Chest Tender Cardiovascular: positive: Irregularly Irregular Gastrointestinal/Abdominal: positive: Normal Bowel Sounds, Flat, Hepatomegaly. negative: Tender Musculoskeletal: negative: Normal Inspection, CVA Tenderness Extremity: positive: Normal Capillary Refill, Normal Range of Motion, Other ( traumatic lesion of the skin of right leg with associated subdermal ecchymosis) Integumentary: positive: Normal Color, Dry, Warm Neurologic: positive: Fully Oriented, Alert, Motor Strength 5/5 ED Treatment Course - LABORATORY CBC & Chemistry Diagram: 08/29/17 16:45 08/29/17 16:45 Medical Decision Making - Medical Decision Making 08/29/17 17:21 87F s/p fall on presenting with fatigue, leg erythema and scleral icterus. Hep A antibody was positive last time as well as elevated liver enzymes and GGT Bedside ultrasound positive for very large unobstructing gallstone. - labs - chest and leg xray - cultures - duonebs *DC/Admit/Observation/Transfer Diagnosis at time of Disposition: COPD exacerbation, Impaired ambulation - Discharge Dispostion Decision to Admit order: Yes - Referrals Referrals: Beatriz Simms MD [Primary Care Provider] - - Patient Instructions - Post Discharge Activity
--- NOTE | 2017-08-29 16:11 | PDOC ---
Attending Attestation - Resident Resident Name: JosselinFamilia - ED Attending Attestation I have performed the following: I have examined & evaluated the patient, The case was reviewed & discussed with the resident, I agree w/resident's findings & plan, Exceptions are as noted - HPI HPI: 08/29/17 16:08 87y F hx of afib on eliquis, copd, recently admitted copd exacerbation, sent to [facility] for rehab presents for complaint of fatigue/malaise for the past day. The patient ntoes that she was discharged on wednesday for pulm rehab, was feeling ok. at night, she fell out of bed and wasnt able to get back into her bed without assistance. she endorses some pain to the L leg but states she was able to ambulate on it during rehab. Pt notes mild cough that is improved from her hospitalization. pt denies any cp, worsening sob abd pain, n/v/d, dysuria. GENERAL: The patient is awake, alert, and fully oriented, Nontoxic - in no acute distress. HEAD: Normocephalic, atraumatic. EYES: extraocular movements intact, sclera anicteric, conjunctiva clear. ENT: Normal voice, Moist mucous membranes. NECK: Normal range of motion, supple LUNGS: mild expiratory wheezing b/l, no rales/rhonchi, imited excursion HEART: Regular rate and rhythm, normal S1 and S2 without murmur, rub or gallop. ABDOMEN: Soft, nontender, normoactive bowel sounds. No guarding, no rebound. . No CVA tenderness EXTREMITIES: L anterior michel with erythema/bruising, slightly warm to touch milddifuse tenderness, able to ROM her hips, knees and ankles without discomfort. NEUROLOGICAL: No facial assymetry, Normal speech, PSYCH: Normal mood, normal affect. SKIN: Warm, Dry, normal turgor, suspect occult infection as a cuase for her not feeling well labs to r/o metabolic derangement, ua, cxr, ekg will ck xray to r/o fx will give neb for her breathing - Physicial Exam PE: 08/31/17 08:55 see above - Medical Decision Making 08/29/17 18:16 pts labs reviewed and noted for leukocytosis w/ left shift - suspect it is secondary to her prednisone use no other source of infection (still awaiting UA) cmp noted approx baseline from d/c, part likely attributable to prednisone Heart Score/ECG Review - ECG Impressions Comment:: 08/29/17 17:19 Twelve-lead EKG was performed and reviewed by me. irregularly irregular rate of 89 nonspecific t wave changes imp: afib
[2017-08-29] MEDS ORDERED: ALBUTEROL SO4 2.5/IPRATROPIUM 0.5 INH SOL 3 ML VIAL.NEB. NEB ONE (16:28)
[2017-08-29 16:50] LABS: BASO % 0.8 % (0-2.0); EOS % 0.2 % (0-4.5); HEMOGLOBIN 11.6 GM/dL (10.7-15.3); LYMPH % 0.9 % (8-40); MCH 30.9 pg (25.7-33.7); MCHC 31.4 g/dl (32.0-36.0); MEAN CELL VOLUME 98.5 fl (80-96); MEAN PLT VOLUME 9.3 fl (7.5-11.1); MONO % 3.5 % (3.8-10.2); NEUT % 94.6 % (42.8-82.8); PLATELET COUNT 226 K/MM3 (134-434); RBC 3.76 M/mm3 (3.60-5.2); RDW 16.9 % (11.6-15.6); WHITE BLOOD COUNT 20.1 K/mm3 (4.0-10.0)
[2017-08-29 17:11] LABS: ALBUMIN 3.1 g/dl (3.4-5.0); ANION GAP 6 (8-16); BILIRUBIN,TOTAL 1.1 mg/dL (0.2-1.0); BLOOD UREA NITROGEN 27 mg/dL (7-18); CALCIUM 8.2 mg/dL (8.5-10.1); CHLORIDE 94 mmol/L (98-107); CO2 35 mmol/L (21-32); CREATININE 1.2 mg/dL (0.55-1.02); GLUCOSE,RANDOM 279 mg/dL (74-106); SGPT/ALT 87 U/L (12-78); SODIUM 135 mmol/L (136-145); TOT PROT 5.6 g/dl (6.4-8.2)
[2017-08-29 17:12] LABS: ALK PHOS 124 U/L (45-117)
[2017-08-29 17:17] LABS: POTASSIUM 4.9 mmol/L (3.5-5.1); SGOT/AST 48 U/L (15-37)
[2017-08-29 17:29] LABS: ANISOCYTOSIS 1+; MACROCYTOSIS 1+; PLATELET ESTIMATE ADEQUATE
[2017-08-29 20:11] LABS: URINE APPEARANCE CLEAR; URINE BILIRUBIN NEGATIVE (<2.0 mg/dL); URINE COLOR YELLOW; URINE KETONE 15 mg/dl (NEGATIVE)
[2017-08-29 20:12] LABS: PH,URINE 5.5 (5.0-8.0); URINE LEUK ESTERASE NEGATIVE (NEGATIVE); URINE NITRITE NEGATIVE (NEGATIVE); URINE PROTEIN 1+ (NEGATIVE); URINE UROBILINOGEN 0.2 mg/dL (0.2-1.0)
[2017-08-29 20:13] LABS: EPI CELLS RARE /HPF (FEW); URINE BACTERIA RARE /hpf (NONE SEEN); URINE HYALINE CAST 7 /lpf; URINE MUCUS RARE
[2017-08-29] MEDS ORDERED: CLINDAMYCIN 600MG PREMIX IVPB 600 MG/50 ML BAG IVPB ONE (21:13)
--- NOTE | 2017-08-29 21:43 | HP ---
CHIEF COMPLAINT: weakness, lethargy, redness to RLE PCP: Deny Newsome HISTORY OF PRESENT ILLNESS: This is an 87 year old female with multiple medical problems including COPD, CHF , RA who was recently hospitalized here 08/19-08/27 for COPD exacerbation and dc to [facility] for STR. She presents to the ED with lethargy, weakness and redness to RLE. Pt and family report that on Wednesday pt was able to ambulate to the nurses station but has been noticed to have progressive weakness and lethargy since DC on 08/27. Family also was very unhappy with care received and are requesting alternate STR facility. 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), COPD, RA, OA, anxiety, depression, insomnia, L BrCA s/p lumpectomy, hypothyroid PAST SURGICAL HISTORY: L breast lumpectomy ventral hernia repair x 2 B/L TKR Social History: Smoking: pt denies Alcohol: pt denies Drugs: pt denies Family History: mother age 62, goiter father age 85, unk Allergies Penicillins Allergy (Verified 08/29/17 15:56) Sulfa (Sulfonamide Antibiotics) [Sulfa(Sulfonamide Antibiotics)] Allergy ( Verified 08/29/17 15:56) Rash HOME MEDICATIONS: 3 Medication Instructions Recorded Methotrexate [Mexate -] 20 mg PO Q7D 08/19/17 Albuterol 0.083% Nebulizer Delfina 1 amp NEB Q6H PRN #0 vial MDD 4 08/25/17 [Ventolin 0.083% Nebulizer Soln -] Celecoxib 200 mg PO BID #0 tab MDD 2 08/25/17 Escitalopram Oxalate [Lexapro -] 10 mg PO DAILY #0 tab MDD 1 08/25/17 Fluticasone Propionate [Armonair 113 mcg IH BID 30 Days #1 08/25/17 Respiclick] aer.pow.ba MDD 2 Gabapentin 300 mg PO TID #0 cap 08/25/17 Levothyroxine [Synthroid -] 150 mcg PO DAILY #90 tablet MDD 1 08/25/17 Montelukast Sodium [Singulair] 10 mg PO DAILY #0 tab MDD 1 08/25/17 Nebivolol HCl [Bystolic] 10 mg PO DAILY #0 tab MDD 1 08/25/17 Nystatin Oral Suspension - 5 ml PO ASDIR #0 tsp MDD 4 08/25/17 [Nystatin Oral Susp 664179 Units/5 ML -] Omeprazole 20 mg PO DAILY #0 cap MDD 1 08/25/17 Prednisone See Taper PO DAILY #21 tablet MDD 4 08/25/17 Ranitidine [Zantac -] 300 mg PO DAILY #0 tab MDD 1 08/25/17 Umeclidinium Brm/Vilanterol Tr 1 each IH DAILY #0 puff MDD 1 08/25/17 [Anoro Ellipta 62.5-25 Mcg INH] Valsartan 40 mg PO DAILY #0 tab 08/25/17 Zolpidem Tartrate [Ambien] 10 mg PO HS #0 tab 08/25/17 Apixaban [Eliquis] 5 mg PO BID 08/29/17 Fluticasone Propionate [Armonair 1 puff IH BID 08/29/17 Respiclick] Folic Acid 1 mg PO DAILY MDD 1 08/29/17 REVIEW OF SYSTEMS CONSTITUTIONAL: Present: generalized weakness, malaise, lethargy Absent: fever, chills, diaphoresis, loss of appetite, weight change HEENT: Absent: rhinorrhea, nasal congestion, throat pain, throat swelling, difficulty swallowing, mouth swelling, ear pain, eye pain, visual changes CARDIOVASCULAR: Absent: chest pain, syncope, palpitations, irregular heart rate, lightheadedness , peripheral edema RESPIRATORY: Absent: cough, shortness of breath, dyspnea with exertion, orthopnea, wheezing, stridor, hemoptysis GASTROINTESTINAL: Absent: abdominal pain, abdominal distension, nausea, vomiting, diarrhea, constipation, melena, hematochezia GENITOURINARY: Absent: dysuria, frequency, urgency, hesitancy, hematuria, flank pain, genital pain MUSCULOSKELETAL: Absent: myalgia, arthralgia, joint swelling, back pain, neck pain SKIN: Present: redness RLE Absent: rash, itching, pallor HEMATOLOGIC/IMMUNOLOGIC: Absent: easy bleeding, easy bruising, lymphadenopathy, frequent infections ENDOCRINE: Absent: unexplained weight gain, unexplained weight loss, heat intolerance, cold intolerance NEUROLOGIC: Absent: headache, focal weakness or paresthesias, dizziness, unsteady gait, seizure, mental status changes, bladder or bowel incontinence PSYCHIATRIC: Absent: anxiety, depression, suicidal or homicidal ideation, hallucinations. PHYSICAL EXAMINATION Vital Signs - 24 hr 3 08/29/17 08/29/17 08/29/17 15:53 16:02 18:42 Temperature 98.4 F Pulse Rate 86 Pulse Rate [ 82 Apical] Respiratory 18 18 Rate Blood Pressure 118/93 Blood Pressure 121/74 [Right Arm] O2 Sat by Pulse 95 95 96 Oximetry (%) 3 08/29/17 08/29/17 20:14 20:17 Temperature 98.6 F Pulse Rate Pulse Rate [ 88 Apical] Respiratory 18 Rate Blood Pressure Blood Pressure 111/57 [Right Arm] O2 Sat by Pulse 95 95 Oximetry (%) GENERAL: drowsy but easily arousable, fully oriented, in no acute distress. HEAD: Normal with no signs of trauma. EYES: Pupils equal, round and reactive to light, extraocular movements intact, sclera anicteric, conjunctiva clear. No lid lag. EARS, NOSE, THROAT: Ears normal, nares patent, oropharynx clear without exudates. Moist mucous membranes. NECK: Normal range of motion, supple without lymphadenopathy, JVD, or masses. LUNGS: Breath sounds equal, crackles bilat bases. scattered mild expiratory wheezes. No accessory muscle use. HEART: Regular rate and rhythm, normal S1 and S2 without murmur, rub or gallop. ABDOMEN: Soft, nontender, not distended, normoactive bowel sounds, no guarding, no rebound, no masses. No hepatomegaly or splenomegaly. MUSCULOSKELETAL: Normal range of motion at all joints. No bony deformities or tenderness. No CVA tenderness. UPPER EXTREMITIES: 2+ pulses, warm, well-perfused. No cyanosis. No clubbing. No peripheral edema. LOWER EXTREMITIES: 2+ pulses, warm, well-perfused. No calf tenderness. tr peripheral edema left, 1+ right NEUROLOGICAL: Cranial nerves II-XII intact. Normal speech. PSYCHIATRIC: Cooperative. Good eye contact. Appropriate mood and affect. SKIN: Warm, dry, normal turgor, no rashes or lesions noted, normal capillary refill. + open area to right michel x 3, surrounding skin red, hot to touch Laboratory Results - last 24 hr 3 08/29/17 08/29/17 08/29/17 16:45 16:45 16:45 WBC 20.1 H RBC 3.76 Hgb 11.6 Hct 37.0 MCV 98.5 H MCH 30.9 MCHC 31.4 L RDW 16.9 H Plt Count 226 MPV 9.3 Absolute Neuts (auto) 19.0 Total Counted 100 Neutrophils % 94.6 H Neutrophils % (Manual) 90.0 H Band Neutrophils % 5.0 Lymphocytes % 0.9 L Lymphocytes % (Manual) 2.0 L D Monocytes % 3.5 L Monocytes % (Manual) 3 L Eosinophils % 0.2 D Basophils % 0.8 Nucleated RBC % 0 Platelet Estimate Adequate Platelet Comment No clumping noted Anisocytosis 1+ Macrocytosis 1+ Sodium 135 L Potassium 4.9 Chloride 94 L Carbon Dioxide 35 H Anion Gap 6 L BUN 27 H Creatinine 1.2 H Creat Clearance w eGFR 42.30 Random Glucose 279 H Calcium 8.2 L Total Bilirubin 1.1 H GGT 429 H AST 48 H ALT 87 H Alkaline Phosphatase 124 H D Total Protein 5.6 L Albumin 3.1 L Urine Color Urine Appearance Urine pH Ur Specific [place] Urine Protein Urine Glucose (UA) Urine Ketones Urine Blood Urine Nitrite Urine Bilirubin Urine Urobilinogen Ur Leukocyte Esterase Urine WBC (Auto) Urine RBC (Auto) Ur Epithelial Cells Urine Bacteria Hyaline Casts Urine Mucus 3 Urine Color Yellow 08/29/17 18:27 Urine Appearance Clear 08/29/17 18:27 Urine pH 5.5 (5.0-8.0) D 08/29/17 18:27 Ur Specific [place] 1.015 (1.001-1.035) 08/29/17 18:27 Urine Protein 1+ (NEGATIVE) H 08/29/17 18:27 Urine Glucose (UA) 100 mg/dl (NEGATIVE) 08/29/17 18:27 Urine Ketones 15 mg/dl (NEGATIVE) 08/29/17 18:27 Urine Blood Negative (NEGATIVE) 08/29/17 18:27 Urine Nitrite Negative (NEGATIVE) 08/29/17 18:27 Urine Bilirubin Negative (<2.0 mg/dL) 08/29/17 18:27 Ur Leukocyte Esterase Negative (NEGATIVE) 08/29/17 18:27 Ur Epithelial Cells Rare /HPF (FEW) 08/29/17 18:27 Urine WBC (Auto) 5 08/29/17 18:27 Urine RBC (Auto) 3 08/29/17 18:27 Urine Bacteria Rare /hpf (NONE SEEN) 08/29/17 18:27 Hyaline Casts 7 08/29/17 18:27 Urine Mucus Rare 08/29/17 18:27 ECG Atrial fibrillation vent rate 89, QTC [address]/T wave abnormality, no acute changes ASSESSMENT/PLAN: 87yF with PMH Afib, dHF, HTN, Mitral valve prolapse, 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 Cellulitis RLE - start clindamycin ( pt allergic to PCN and sulfa) - daily wound care diastolic HF - Chest xray with questionable increased vascular congestion - final read pending - given crackles and edema, will give lasix x 1 dose (her home aldactone has been on hold due to hyperkalemia on prior admission) - cont home bystolic, valsartan HTN - cont home meds Afib - rate controlled, cont bystolic - cont eliquis COPD - cont planned prednisone taper, til 10mg daily (maintained on 10mg daily for RA as per pulm note last admission) - cont home inhalers (or formulary equivalents) hyperglycemia - due to steroids, cont BGM AC/HS with novolog coverage RA - cont home meds: methotrexate, celebrex, prednisone hypothyroid - cont home synthroid anxiety/depression/insomnia - cont home lexapro, home ambien decreased to 5mg PRN DVT PPX - cont home eliquis FEN - tolerating po - BMP in am - low sodium/diabetic diet as tolerated Dispo: Pt admitted for further observation Visit type - Emergency Visit Emergency Visit: Yes ED Registration Date: 08/29/17 Care time: The patient presented to the Emergency Department on the above date and was hospitalized for further evaluation of their emergent condition. - New Patient This patient is new to me today: Yes Date on this admission: 08/29/17 - Critical Care Critical Care patient: No Hospitalist Screening - Colonoscopy Questionnaire Colonoscopy Questionnaire: Colonoscopy Questionnaire - Patient: 50 - 75 years old and never had a screening colonoscopy: No History of colon or rectal polyps, or CA: No History of IBD, Crohn's disease or UC: No History of abdominal radiation therapy as a child: No - Relative: 1 with colon or rectal CA, or polyps at age 60 or younger: No Colon or rectal CA diagnosed at age 45 or younger: No Multiple relatives with colon or rectal CA: No - Outcome: Screening Result: Negative Screen
[2017-08-29] MEDS ORDERED: ALBUTEROL SO4 0.083% IH SOL 2.5 MG/3 ML VIAL.NEB. NEB PRN (21:49)
[2017-08-29] MEDS ORDERED: NYSTATIN 500,000 UNITS/5 ML SUSPENSION PO SCH (22:00)
[2017-08-29] MEDS ORDERED: FLUTICASONE PROPIONATE IH SCH (22:00)
[2017-08-29] MEDS ORDERED: FUROSEMIDE 40 MG/4 ML INJECTABLE VIAL IVPUSH ONE (23:00)
[2017-08-29] MEDS: GABAPENTIN 300 MG CAPSULE (FP) PO SCH (23:22)
[2017-08-29] MEDS: MONTELUKAST NA 10 MG TABLET PO SCH (23:23)
[2017-08-29] MEDS: APIXABAN 5 MG TABLET PO SCH (23:23)
[2017-08-29] MEDS: NYSTATIN 500,000 UNITS/5 ML SUSPENSION PO SCH (23:24)
[2017-08-29] MEDS: CELECOXIB 200 MG CAPSULE PO SCH (23:28)
[2017-08-29] MEDS: INSULIN SLIDING SCALE (NOVOLOG) 1 VIAL SQ SCH (23:49)
[2017-08-30] MEDS ORDERED: INSULIN (NOVOLOG) ASPART 100 UNITS/ML 10ML VIAL SQ ONE (01:48)
[2017-08-30] MEDS: CLINDAMYCIN 300 MG PREMIX IVPB 300 MG/50 ML BAG IVPB SCH ×4 (02:17→22:24)
[2017-08-30 03:20] VITALS: BMI 33.0
[2017-08-30] MEDS: LEVOTHYROXINE NA 150 MCG TABLET PO SCH (06:25)
[2017-08-30] MEDS: INSULIN SLIDING SCALE (NOVOLOG) 1 VIAL SQ SCH ×4 (06:25→21:47)
[2017-08-30] MEDS: NYSTATIN 500,000 UNITS/5 ML SUSPENSION PO SCH ×3 (06:25→17:33)
[2017-08-30] MEDS: GABAPENTIN 300 MG CAPSULE (FP) PO SCH ×3 (06:25→21:46)
[2017-08-30 08:21] LABS: BASO % 0.2 % (0-2.0); EOS % 0.1 % (0-4.5); HEMATOCRIT 32.8 % (32.4-45.2); HEMOGLOBIN 10.5 GM/dL (10.7-15.3); LYMPH % 0.9 % (8-40); MCH 31.8 pg (25.7-33.7); MCHC 32.1 g/dl (32.0-36.0); MEAN CELL VOLUME 99.1 fl (80-96); MEAN PLT VOLUME 9.1 fl (7.5-11.1); MONO % 7.3 % (3.8-10.2); NEUT % 91.5 % (42.8-82.8); PLATELET COUNT 184 K/MM3 (134-434); RBC 3.31 M/mm3 (3.60-5.2); RDW 16.5 % (11.6-15.6); WHITE BLOOD COUNT 20.6 K/mm3 (4.0-10.0)
[2017-08-30 08:56] LABS: ANION GAP 6 (8-16); BLOOD UREA NITROGEN 26 mg/dL (7-18); CALCIUM 8.1 mg/dL (8.5-10.1); CHLORIDE 92 mmol/L (98-107); CO2 40 mmol/L (21-32); CREATININE 1.1 mg/dL (0.55-1.02); GLUCOSE,RANDOM 118 mg/dL (74-106); PHOSPHOROUS 3.5 mg/dL (2.5-4.9); POTASSIUM 4.3 mmol/L (3.5-5.1); SODIUM 138 mmol/L (136-145)
[2017-08-30] MEDS ORDERED: predniSONE 20 MG TABLET (UD) PO SCH (10:00)
[2017-08-30] MEDS ORDERED: PATIENT'S OWN MEDICATION (NON-FORMULARY) (Umeclidinium Brm/Vilanterol Tr [Anoro Ellipta 62 IH SCH (10:00)
--- NOTE | 2017-08-30 10:24 | CON.PULM ---
Consult Consult Specialty:: PULMONARY Referred by:: PARVEEN Colbert Reason for Consultation:: COPD - History of Present Illness Chief Complaint: leg pain History of Present Illness: 87yo female with h/o COPD, LV diastolic dysfunction, rheumatoid arthritis, HTN, atrial fibrillation, DM, h/o breast ca, hypothyroidism, recent admission for COPD exacerbation who [facility], s /p fall with laceration and increasing leg pain. Currently denies shortness of breath, significant cough or wheezing. No fevers, chills or sweats. No chest pain or palpitations. States that her breathing is better than when she was discharged. - History Source History Provided By: Patient, Medical Record Limitations to Obtaining History: No Limitations - Past Medical History Cardio/Vascular: Yes: AFIB, CAD, HTN, Hyperlipdemia Pulmonary: Yes: COPD Hepatobiliary: Yes: Cholelithiasis (single large gallstone) ...: No Psych: Yes: Anxiety, Depression, Other (insomnia) Musculoskeletal: Yes: Osteoarthritis Rheumatology: Yes: Rheumatoid Arthritis Endocrine: Yes: Diabetes Mellitus - Past Surgical History Past Surgical History: Yes: Colectomy (diverticulitis with temporary colostomy ) , Colonoscopy, Hernia Repair (incisional hernia repair x 2 with mesh), Joint Replacement (bilateral knee replacements), Upper Endoscopy - Alcohol/Substance Use Hx Alcohol Use: No History of Substance Use: reports: None - Smoking History Smoking history: Never smoked Have you smoked in the past 12 months: No Aproximately how many cigarettes per day: 0 - Social History Usual Living Arrangement: With Child ADL: Independent Occupation: retired home health aid History of Recent Travel: No Home Medications - Allergies Allergies/Adverse Reactions: Allergies Allergy/AdvReac Type Severity Reaction Status Date / Time Penicillins Allergy Verified 08/29/17 15:56 Sulfa (Sulfonamide Allergy Rash Verified 08/29/17 15:56 Antibiotics) [Sulfa(Sulfonamide Antibiotics)] - Home Medications Home Medications: Ambulatory Orders Methotrexate [Mexate -] 20 mg PO Q7D 08/19/17 Albuterol 0.083% Nebulizer Delfina [Ventolin 0.083% Nebulizer Soln -] 1 amp NEB Q6H PRN #0 vial MDD 4 08/25/17 Celecoxib 200 mg PO BID #0 tab MDD 2 08/25/17 Escitalopram Oxalate [Lexapro -] 10 mg PO DAILY #0 tab MDD 1 08/25/17 Fluticasone Propionate [Armonair Respiclick] 113 mcg IH BID 30 Days #1 aer.pow.ba MDD 2 08/25/17 Gabapentin 300 mg PO TID #0 cap 08/25/17 Levothyroxine [Synthroid -] 150 mcg PO DAILY #90 tablet MDD 1 08/25/17 Montelukast Sodium [Singulair] 10 mg PO DAILY #0 tab MDD 1 08/25/17 Nebivolol HCl [Bystolic] 10 mg PO DAILY #0 tab MDD 1 08/25/17 Nystatin Oral Suspension - [Nystatin Oral Susp 988000 Units/5 ML -] 5 ml PO ASDIR #0 tsp MDD 4 08/25/17 Omeprazole 20 mg PO DAILY #0 cap MDD 1 08/25/17 Prednisone See Taper PO DAILY #21 tablet MDD 4 08/25/17 Ranitidine [Zantac -] 300 mg PO DAILY #0 tab MDD 1 08/25/17 Umeclidinium Brm/Vilanterol Tr [Anoro Ellipta 62.5-25 Mcg INH] 1 each IH DAILY # 0 puff MDD 1 08/25/17 Valsartan 40 mg PO DAILY #0 tab 08/25/17 Zolpidem Tartrate [Ambien] 10 mg PO HS #0 tab 08/25/17 Apixaban [Eliquis] 5 mg PO BID 08/29/17 Fluticasone Propionate [Armonair Respiclick] 1 puff IH BID 08/29/17 Folic Acid 1 mg PO DAILY MDD 1 08/29/17 Family Disease History - Family Disease History Family Disease History: Heart Disease: Father, CA: Sister (breast cancer), Other : Mother ( 58 after goiter surgery) Review of Systems - Review of Systems Constitutional: reports: Weakness. denies: Chills, Fever Eyes: denies: Recent Change in Vision HENT: denies: Nasal Congestion, Throat Pain Neck: denies: Stiffness, Tenderness Cardiovascular: denies: Chest Pain, Palpitations, Shortness of Breath Respiratory: denies: Cough, Hemoptysis, Wheezing Gastrointestinal: denies: Abdominal Pain, Nausea, Vomiting Genitourinary: denies: Dysuria, Hematuria Neurological: denies: Dizziness, Headache Endocrine: denies: Unexplained Weight Loss Physical Exam Vital Sings: Vital Signs Temperature 98.7 F 08/30/17 01:14 Pulse Rate 67 08/30/17 01:14 Respiratory Rate 18 08/30/17 01:14 Blood Pressure 116/67 08/30/17 01:14 O2 Sat by Pulse Oximetry (%) 95 08/29/17 21:03 Constitutional: Yes: Calm Eyes: Yes: Conjunctiva Clear, EOM Intact HENT: Yes: Atraumatic, Normocephalic Neck: Yes: Supple, Trachea Midline Cardiovascular: Yes: Pulse Irregular Respiratory: Yes: Diminished (decreased breath sounds at the bases). No: Wheezes ...Clubbing: No Gastrointestinal: Yes: Normal Bowel Sounds, Soft. No: Tenderness Extremities: Yes: Erythema Labs: CBC, BMP 08/30/17 07:00 08/30/17 07:00 Imaging - Results Chest X-ray: Report Reviewed, Image Reviewed (no infiltrates) Problem List - Problems (1) Weakness Code(s): R53.1 - WEAKNESS (2) A-fib Code(s): I48.91 - UNSPECIFIED ATRIAL FIBRILLATION Qualifiers: Atrial fibrillation type: persistent Qualified Code(s): I48.1 - Persistent atrial fibrillation (3) CAD (coronary artery disease) Code(s): I25.10 - ATHSCL HEART DISEASE OF [place] CORONARY ARTERY W/O ANG PCTRS Qualifiers: Coronary Disease-Associated Artery/Lesion type: [place] artery [place] vs. transplanted heart: [place] heart Associated angina: without angina Qualified Code(s): I25.10 - Atherosclerotic heart disease of [place] coronary artery without angina pectoris (4) Diastolic CHF Code(s): I50.30 - UNSPECIFIED DIASTOLIC (CONGESTIVE) HEART FAILURE Qualifiers: Heart failure chronicity: chronic Qualified Code(s): I50.32 - Chronic diastolic (congestive) heart failure (5) Hypertension Code(s): I10 - ESSENTIAL (PRIMARY) HYPERTENSION (6) Hypothyroidism Code(s): E03.9 - HYPOTHYROIDISM, UNSPECIFIED Qualifiers: Hypothyroidism type: unspecified Qualified Code(s): E03.9 - Hypothyroidism , unspecified (7) Rheumatoid arthritis Code(s): M06.9 - RHEUMATOID ARTHRITIS, UNSPECIFIED Qualifiers: Rheumatoid arthritis location: unspecified site Assessment/Plan COPD Atrial Fibrillation LV Diastolic Dysfunction HTN DM Hypothyroidism h/o Breast Ca Rheumatoid Arthritis - COPD appears to be stable - continue inhaled bronchodilators standing and PRN - can continue prednisone taper down to her home dose of 10mg treating her RA - O2 to keep SpO2 >90% - rehab/PT - rate controlled - continue anticoagulation Thank you for this consult Berry Molina MD
--- NOTE | 2017-08-30 10:39 | EKG ---
Test Reason : Blood Pressure : / mmHG Vent. Rate : 089 BPM Atrial Rate : 202 BPM P-R Int : 000 ms QRS Dur : 076 ms QT Int : 366 ms P-R-T Axes : 000 031 051 degrees QTc Int : 445 ms ATRIAL FIBRILLATION NONSPECIFIC ST AND T WAVE ABNORMALITY ABNORMAL ECG WHEN COMPARED WITH ECG OF 19-AUG-2017 14:33, Confirmed by SERENTIY PEDROZA MD ([id number]) on 08/30/2017 10:38:36 AM Referred By: Confirmed By:SERENITY PEDROZA MD
[2017-08-30] MEDS ORDERED: PT OWN MED DRAWER 7, Y5N ONE (10:56)
[2017-08-30] MEDS: APIXABAN 5 MG TABLET PO SCH ×2 (11:14→21:46)
[2017-08-30] MEDS: RANITIDINE HCL 150 MG TABLET (FP) PO SCH (11:14)
[2017-08-30] MEDS: PANTOPRAZOLE 20 MG TABLET (FP) PO SCH (11:15)
[2017-08-30] MEDS: ESCITALOPRAM OXALATE 10 MG TABLET (FP) PO SCH (11:15)
[2017-08-30] MEDS: CELECOXIB 200 MG CAPSULE PO SCH ×2 (11:15→21:47)
[2017-08-30] MEDS: FOLIC ACID 1 MG TABLET (FP) PO SCH (11:15)
[2017-08-30] MEDS: NEBIVOLOL 10 MG TABLET (FP) PO SCH (11:16)
[2017-08-30] MEDS: BACITRACIN 15 GM TUBE TOPICAL OINTMENT TP SCH (11:16)
[2017-08-30] MEDS: VALSARTAN 40 MG TABLET (FP) PO SCH (11:16)
[2017-08-30 11:27] LABS: ANISOCYTOSIS 2+; MACROCYTOSIS 0; OVALOCYTE 1+; PLATELET ESTIMATE NORMAL; TEAR DROP CELLS 1+
[2017-08-30] MEDS: ALBUTEROL SO4 2.5/IPRATROPIUM 0.5 INH SOL 3 ML VIAL.NEB. NEB SCH ×2 (14:21→21:29)
[2017-08-30] MEDS: MONTELUKAST NA 10 MG TABLET PO SCH (21:46)
[2017-08-31] MEDS ORDERED: PT OWN MED DRAWER 7, Y5N ONE ×2 (00:30→09:46)
[2017-08-31] MEDS: NYSTATIN 500,000 UNITS/5 ML SUSPENSION PO SCH ×4 (00:37→17:35)
[2017-08-31] MEDS: CLINDAMYCIN 300 MG PREMIX IVPB 300 MG/50 ML BAG IVPB SCH ×6 (02:38→20:28)
[2017-08-31] MEDS: GABAPENTIN 300 MG CAPSULE (FP) PO SCH ×3 (05:49→21:11)
[2017-08-31] MEDS: LEVOTHYROXINE NA 150 MCG TABLET PO SCH (06:12)
[2017-08-31] MEDS: INSULIN SLIDING SCALE (NOVOLOG) 1 VIAL SQ SCH ×4 (06:13→21:16)
[2017-08-31 07:28] LABS: BASO % 0.3 % (0-2.0); HEMATOCRIT 30.7 % (32.4-45.2); HEMOGLOBIN 9.9 GM/dL (10.7-15.3); LYMPH % 1.5 % (8-40); MCH 31.7 pg (25.7-33.7); MCHC 32.1 g/dl (32.0-36.0); MEAN CELL VOLUME 98.8 fl (80-96); MEAN PLT VOLUME 9.2 fl (7.5-11.1); MONO % 4.7 % (3.8-10.2); NEUT % 93.5 % (42.8-82.8); PLATELET COUNT 160 K/MM3 (134-434); RBC 3.11 M/mm3 (3.60-5.2); RDW 16.6 % (11.6-15.6); WHITE BLOOD COUNT 17.5 K/mm3 (4.0-10.0)
[2017-08-31] MEDS: ALBUTEROL SO4 2.5/IPRATROPIUM 0.5 INH SOL 3 ML VIAL.NEB. NEB SCH ×3 (07:30→20:50)
[2017-08-31 07:54] LABS: ANION GAP 8 (8-16); BLOOD UREA NITROGEN 27 mg/dL (7-18); CALCIUM 8.2 mg/dL (8.5-10.1); CHLORIDE 92 mmol/L (98-107); CO2 36 mmol/L (21-32); GLUCOSE,RANDOM 278 mg/dL (74-106); POTASSIUM 4.6 mmol/L (3.5-5.1); SODIUM 136 mmol/L (136-145)
[2017-08-31 07:56] LABS: CREATININE 1.1 mg/dL (0.55-1.02)
--- NOTE | 2017-08-31 09:13 | PN ---
Progress Note (short form) - Note Progress Note: Subjective: The patient was seen and examined at the bedside, she reports feeling good today Current Medications Generic Name Dose Route Start Last Admin Trade Name Alicia PRN Reason Stop Dose Admin Albuterol Sulfate 1 amp 08/29/17 21:49 08/30/17 11:10 Ventolin 0.083% Nebulizer Soln - NEB 1 amp Q6H PRN Administration ASTHMA Albuterol/Ipratropium 1 amp 08/30/17 14:00 08/31/17 07:30 Duoneb - NEB 1 amp RTID MARIAH Administration Apixaban 5 mg 08/29/17 22:00 08/30/17 21:46 Eliquis - PO 5 mg BID MARIAH Administration Bacitracin 1 applic 08/30/17 10:00 08/30/17 11:16 Bacitracin - TP 1 applic DAILY MARIAH Administration Celecoxib 200 mg 08/29/17 22:00 08/30/17 21:47 Celebrex - PO 200 mg BID MARIAH Administration Escitalopram Oxalate 10 mg 08/30/17 10:00 08/30/17 11:15 Lexapro - PO 10 mg DAILY MARIAH Administration Folic Acid 1 mg 08/30/17 10:00 08/30/17 11:15 Folic Acid - PO 1 mg DAILY MARIAH Administration Gabapentin 300 mg 08/29/17 22:00 08/31/17 05:49 Neurontin - PO 300 mg TID MARIAH Administration Clindamycin Phosphate 300 mg in 50 mls @ 100 mls/hr 08/30/17 03:00 08/31/17 02:38 Cleocin 300 Mg Premix Ivpb IVPB 100 mls/hr Q6H-IV MARIAH Administration Protocol Insulin Aspart 1 vial 08/29/17 22:00 08/31/17 06:13 Novolog Vial Sliding Scale - SQ 4 unit ACHS MARIAH Administration Protocol Levothyroxine Sodium 150 mcg 08/30/17 07:00 08/31/17 06:12 Synthroid - PO 150 mcg DAILY@0700 MARIAH Administration Methotrexate 20 mg 08/31/17 10:00 Mexate - PO Tu@1000 MARIAH Montelukast Sodium 10 mg 08/29/17 22:00 08/30/17 21:46 Singulair - PO 10 mg HS MARIAH Administration Nebivolol 10 mg 08/30/17 10:00 08/30/17 11:16 Bystolic - PO Not Given DAILY [facility] Non-Formulary Medication 113 mcg 08/29/17 22:00 Fluticasone Propionate [Armonair Respiclick] IH BID MARIAH Nystatin 500,000 units 08/30/17 00:00 08/31/17 05:49 Nystatin Oral Suspension - PO 500,000 units Q6HPO MARIAH Administration Pantoprazole Sodium 20 mg 08/30/17 10:00 08/30/17 11:15 Protonix - PO 20 mg DAILY MARIAH Administration Prednisone 40 mg 08/30/17 10:00 08/30/17 11:15 Deltasone - PO 08/31/17 09:59 40 mg DAILY MARIAH Administration Prednisone 30 mg 08/31/17 10:00 Deltasone - PO 09/03/17 09:59 DAILY MARIAH Prednisone 20 mg 09/03/17 10:00 Deltasone - PO 09/06/17 09:59 DAILY MARIAH Prednisone 10 mg 09/06/17 10:00 Deltasone - PO DAILY MARIAH Ranitidine HCl 150 mg 08/30/17 10:00 08/30/17 11:14 Zantac - PO 150 mg DAILY MARIAH Administration Valsartan 40 mg 08/30/17 10:00 08/30/17 11:16 Diovan - PO Not Given DAILY [facility] Zolpidem Tartrate 5 mg 08/29/17 22:20 Ambien - PO HS PRN INSOMNIA Objective: Vital Signs Period Temp Pulse Resp BP Sys/Mccray Pulse Ox Last 24 Hr 98.7 F-99.6 F 91-101 18-20 98-125/54-69 95-98 Physical Exam: General: NAD Lungs: Diminished breath sounds b/l Heart: Irregular pulse Ext: RLE with erythema, lateral leg with area abrasion. 2+ DP/PT bilaterally CBCD WBC 17.5 K/mm3 (4.0-10.0) H 08/31/17 06:40 RBC 3.11 M/mm3 (3.60-5.2) L 08/31/17 06:40 Hgb 9.9 GM/dL (10.7-15.3) L 08/31/17 06:40 Hct 30.7 % (32.4-45.2) L 08/31/17 06:40 MCV 98.8 fl (80-96) H 08/31/17 06:40 MCHC 32.1 g/dl (32.0-36.0) 08/31/17 06:40 RDW 16.6 % (11.6-15.6) H 08/31/17 06:40 Plt Count 160 K/MM3 (134-434) 08/31/17 06:40 MPV 9.2 fl (7.5-11.1) 08/31/17 06:40 CMP Sodium 136 mmol/L (136-145) 08/31/17 06:40 Potassium 4.6 mmol/L (3.5-5.1) 08/31/17 06:40 Chloride 92 mmol/L (98-107) L 08/31/17 06:40 Carbon Dioxide 36 mmol/L (21-32) H 08/31/17 06:40 Anion Gap 8 (8-16) 08/31/17 06:40 BUN 27 mg/dL (7-18) H 08/31/17 06:40 Creatinine 1.1 mg/dL (0.55-1.02) H 08/31/17 06:40 Creat Clearance w eGFR 46.77 (>60) 08/31/17 06:40 Random Glucose 278 mg/dL (74-106) H 08/31/17 06:40 Calcium 8.2 mg/dL (8.5-10.1) L 08/31/17 06:40 Total Bilirubin 1.1 mg/dL (0.2-1.0) H 08/29/17 16:45 AST 48 U/L (15-37) H 08/29/17 16:45 ALT 87 U/L (12-78) H 08/29/17 16:45 Alkaline Phosphatase 124 U/L (45-117) H D 08/29/17 16:45 Total Protein 5.6 g/dl (6.4-8.2) L 08/29/17 16:45 Albumin 3.1 g/dl (3.4-5.0) L 08/29/17 16:45 Microbiology 08/29/17 16:45 Blood - Peripheral Venous Blood Culture - Preliminary NO GROWTH OBTAINED AFTER 24 HOURS, INCUBATION TO CONTINUE FOR 4 DAYS. 08/29/17 16:45 Blood - Peripheral Venous Blood Culture - Preliminary NO GROWTH OBTAINED AFTER 24 HOURS, INCUBATION TO CONTINUE FOR 4 DAYS. Assessment: This is an 87 year old female with multiple medical problems including COPD, CHF, RA who was recently hospitalized here 08/19-08/27 for COPD exacerbation who presented to the ED with lethargy, weakness and redness to RLE Plan: 1) RLE cellulitis - Continue Clindamycin - Appears to be improving - Remains afebrile 2) Chronic diastolic heart failure - No evidence of acute exacerbation at this time - Continue home medications 3) A.fib - Continue Eliquis 4) COPD - Continue Prednisone taper - Leukocytosis likely reactive to steroids Visit type - Emergency Visit Emergency Visit: Yes ED Registration Date: 08/29/17 Care time: The patient presented to the Emergency Department on the above date and was hospitalized for further evaluation of their emergent condition. - New Patient This patient is new to me today: No - Critical Care Critical Care patient: No
[2017-08-31 09:31] LABS: ANISOCYTOSIS 1+; MACROCYTOSIS 1+; OVALOCYTE 1+
--- NOTE | 2017-08-31 09:40 | PN ---
Progress Note (short form) - Note Progress Note: PULMONARY Denies shortness of breath, cough or wheezing. Vital Signs Period Temp Pulse Resp BP Sys/Mccray Pulse Ox Last 24 Hr 98.7 F-99.6 F 91-101 18-20 98-125/54-69 95-98 Gen: NAD at rest Heart: RRR Lung: decreased breath sounds at the bases Abd: soft, nontender Ext: no edema, RLE lac CBC, BMP 08/31/17 06:40 08/31/17 06:40 Active Medications Albuterol Sulfate (Ventolin 0.083% Nebulizer Soln -) 1 amp NEB Q6H PRN PRN Reason: ASTHMA Last Admin: 08/30/17 11:10 Dose: 1 amp Albuterol/Ipratropium (Duoneb -) 1 amp NEB RTID [facility] Last Admin: 08/31/17 07:30 Dose: 1 amp Apixaban (Eliquis -) 5 mg PO BID [facility] Last Admin: 08/30/17 21:46 Dose: 5 mg Bacitracin (Bacitracin -) 1 applic TP DAILY [facility] Last Admin: 08/30/17 11:16 Dose: 1 applic Celecoxib (Celebrex -) 200 mg PO BID [facility] Last Admin: 08/30/17 21:47 Dose: 200 mg Escitalopram Oxalate (Lexapro -) 10 mg PO DAILY [facility] Last Admin: 08/30/17 11:15 Dose: 10 mg Folic Acid (Folic Acid -) 1 mg PO DAILY [facility] Last Admin: 08/30/17 11:15 Dose: 1 mg Gabapentin (Neurontin -) 300 mg PO TID [facility] Last Admin: 08/31/17 05:49 Dose: 300 mg Clindamycin Phosphate (Cleocin 300 Mg Premix Ivpb) 300 mg in 50 mls @ 100 mls/ hr IVPB Q6H-IV [facility]; Protocol Last Admin: 08/31/17 02:38 Dose: 100 mls/hr Insulin Aspart (Novolog Vial Sliding Scale -) 1 vial SQ ACHS [facility]; Protocol Last Admin: 08/31/17 06:13 Dose: 4 unit Levothyroxine Sodium (Synthroid -) 150 mcg PO DAILY@0700 [facility] Last Admin: 08/31/17 06:12 Dose: 150 mcg Methotrexate (Mexate -) 20 mg PO Tu@1000 [facility] Montelukast Sodium (Singulair -) 10 mg PO HS [facility] Last Admin: 08/30/17 21:46 Dose: 10 mg Nebivolol (Bystolic -) 10 mg PO DAILY [facility] Last Admin: 08/30/17 11:16 Dose: Not Given Non-Formulary Medication (Fluticasone Propionate [Armonair Respiclick]) 113 mcg IH BID [facility] Nystatin (Nystatin Oral Suspension -) 500,000 units PO Q6HPO [facility] Last Admin: 08/31/17 05:49 Dose: 500,000 units Pantoprazole Sodium (Protonix -) 20 mg PO DAILY [facility] Last Admin: 08/30/17 11:15 Dose: 20 mg Prednisone (Deltasone -) 40 mg PO DAILY [facility] Stop: 08/31/17 09:59 Last Admin: 08/30/17 11:15 Dose: 40 mg Prednisone (Deltasone -) 30 mg PO DAILY [facility] Stop: 09/03/17 09:59 Prednisone (Deltasone -) 20 mg PO DAILY [facility] Stop: 09/06/17 09:59 Prednisone (Deltasone -) 10 mg PO DAILY [facility] Ranitidine HCl (Zantac -) 150 mg PO DAILY [facility] Last Admin: 08/30/17 11:14 Dose: 150 mg Valsartan (Diovan -) 40 mg PO DAILY [facility] Last Admin: 08/30/17 11:16 Dose: Not Given Zolpidem Tartrate (Ambien -) 5 mg PO HS PRN PRN Reason: INSOMNIA A/P COPD Atrial Fibrillation LV Diastolic Dysfunction HTN DM Hypothyroidism h/o Breast Ca Rheumatoid Arthritis - continue inhaled bronchodilators standing and PRN - continue prednisone taper down to her home dose of 10mg treating her RA - O2 to keep SpO2 >90% - rehab/PT - rate controlled - continue anticoagulation - d/c planning Problem List - Problems (1) Weakness Code(s): R53.1 - WEAKNESS (2) A-fib Code(s): I48.91 - UNSPECIFIED ATRIAL FIBRILLATION Qualifiers: Atrial fibrillation type: persistent Qualified Code(s): I48.1 - Persistent atrial fibrillation (3) CAD (coronary artery disease) Code(s): I25.10 - ATHSCL HEART DISEASE OF [place] CORONARY ARTERY W/O ANG PCTRS Qualifiers: Coronary Disease-Associated Artery/Lesion type: [place] artery [place] vs. transplanted heart: [place] heart Associated angina: without angina Qualified Code(s): I25.10 - Atherosclerotic heart disease of [place] coronary artery without angina pectoris (4) Diastolic CHF Code(s): I50.30 - UNSPECIFIED DIASTOLIC (CONGESTIVE) HEART FAILURE Qualifiers: Heart failure chronicity: chronic Qualified Code(s): I50.32 - Chronic diastolic (congestive) heart failure (5) Hypertension Code(s): I10 - ESSENTIAL (PRIMARY) HYPERTENSION (6) Hypothyroidism Code(s): E03.9 - HYPOTHYROIDISM, UNSPECIFIED Qualifiers: Hypothyroidism type: unspecified Qualified Code(s): E03.9 - Hypothyroidism , unspecified (7) Rheumatoid arthritis Code(s): M06.9 - RHEUMATOID ARTHRITIS, UNSPECIFIED Qualifiers: Rheumatoid arthritis location: unspecified site
[2017-08-31] MEDS: CELECOXIB 200 MG CAPSULE PO SCH ×2 (09:56→21:12)
[2017-08-31] MEDS: APIXABAN 5 MG TABLET PO SCH ×2 (09:56→21:11)
[2017-08-31] MEDS: VALSARTAN 40 MG TABLET (FP) PO SCH (09:57)
[2017-08-31] MEDS: NEBIVOLOL 10 MG TABLET (FP) PO SCH (09:57)
[2017-08-31] MEDS: predniSONE 10 MG TABLET (UD) PO SCH (09:57)
[2017-08-31] MEDS: RANITIDINE HCL 150 MG TABLET (FP) PO SCH (09:57)
[2017-08-31] MEDS: ESCITALOPRAM OXALATE 10 MG TABLET (FP) PO SCH (09:57)
[2017-08-31] MEDS: FOLIC ACID 1 MG TABLET (FP) PO SCH (09:57)
[2017-08-31] MEDS: PANTOPRAZOLE 20 MG TABLET (FP) PO SCH (09:57)
[2017-08-31] MEDS: BACITRACIN 15 GM TUBE TOPICAL OINTMENT TP SCH (09:58)
[2017-08-31] MEDS ORDERED: METHOTREXATE 2.5 MG TABLET PO SCH (10:00)
[2017-08-31 10:39] LABS: PLATELET ESTIMATE ADEQUATE
[2017-08-31] MEDS ORDERED: CLINDAMYCIN HCL 300 MG CAPSULE PO STA (16:06)
[2017-08-31] MEDS: MONTELUKAST NA 10 MG TABLET PO SCH (21:11)
[2017-08-31] MEDS: ZOLPIDEM TARTRATE 5 MG TABLET PO PRN (21:11)
[2017-09-01] MEDS: NYSTATIN 500,000 UNITS/5 ML SUSPENSION PO SCH ×4 (00:04→18:51)
[2017-09-01] MEDS: CLINDAMYCIN 300 MG PREMIX IVPB 300 MG/50 ML BAG IVPB SCH ×4 (03:39→15:41)
[2017-09-01] MEDS: GABAPENTIN 300 MG CAPSULE (FP) PO SCH ×3 (06:20→21:28)
[2017-09-01] MEDS: LEVOTHYROXINE NA 150 MCG TABLET PO SCH (06:20)
[2017-09-01] MEDS: INSULIN SLIDING SCALE (NOVOLOG) 1 VIAL SQ SCH ×4 (06:20→21:30)
[2017-09-01] MEDS ORDERED: INSULIN (NOVOLOG) ASPART 100 UNITS/ML 10ML VIAL ONE (06:32)
[2017-09-01] MEDS: ALBUTEROL SO4 2.5/IPRATROPIUM 0.5 INH SOL 3 ML VIAL.NEB. NEB SCH ×3 (07:50→20:39)
[2017-09-01 08:16] LABS: BASO % 0.5 % (0-2.0); EOS % 0.4 % (0-4.5); HEMATOCRIT 31.9 % (32.4-45.2); HEMOGLOBIN 10.2 GM/dL (10.7-15.3); LYMPH % 2.9 % (8-40); MCH 31.7 pg (25.7-33.7); MCHC 32.1 g/dl (32.0-36.0); MEAN CELL VOLUME 98.9 fl (80-96); MEAN PLT VOLUME 9.5 fl (7.5-11.1); MONO % 7.6 % (3.8-10.2); NEUT % 88.6 % (42.8-82.8); PLATELET COUNT 167 K/MM3 (134-434); RBC 3.23 M/mm3 (3.60-5.2); RDW 16.6 % (11.6-15.6)
[2017-09-01 08:32] LABS: CHLORIDE 94 mmol/L (98-107); POTASSIUM 5.2 mmol/L (3.5-5.1); SODIUM 137 mmol/L (136-145)
[2017-09-01 08:40] LABS: ALBUMIN 2.7 g/dl (3.4-5.0); ALK PHOS 110 U/L (45-117); ANION GAP 7 (8-16); BILIRUBIN,TOTAL 0.5 mg/dL (0.2-1.0); BLOOD UREA NITROGEN 32 mg/dL (7-18); CALCIUM 8.4 mg/dL (8.5-10.1); CO2 36 mmol/L (21-32); GLUCOSE,RANDOM 155 mg/dL (74-106); SGOT/AST 25 U/L (15-37); SGPT/ALT 56 U/L (12-78); TOT PROT 5.5 g/dl (6.4-8.2)
[2017-09-01] MEDS ORDERED: PT OWN MED DRAWER 7, Y5N ONE ×2 (10:01→15:03)
--- NOTE | 2017-09-01 10:01 | PN ---
Progress Note (short form) - Note Progress Note: PULMONARY CHART REVIEWED VSS Gen: NAD at rest Heart: RRR Lung: decreased breath sounds at the bases Abd: soft, nontender Ext: no edema, RLE lac meds/labs/micro/orders/images reviewed A/P COPD Atrial Fibrillation LV Diastolic Dysfunction HTN DM Hypothyroidism h/o Breast Ca Rheumatoid Arthritis - continue inhaled bronchodilators standing and PRN - continue prednisone taper down to her home dose of 10mg treating her RA - O2 to keep SpO2 >90% - rehab/PT - rate controlled - continue anticoagulation - d/c planning [employer] JARVIS MD
[2017-09-01] MEDS: ESCITALOPRAM OXALATE 10 MG TABLET (FP) PO SCH (10:05)
[2017-09-01] MEDS: RANITIDINE HCL 150 MG TABLET (FP) PO SCH (10:05)
[2017-09-01] MEDS: predniSONE 10 MG TABLET (UD) PO SCH (10:06)
[2017-09-01] MEDS: APIXABAN 5 MG TABLET PO SCH ×2 (10:06→21:29)
[2017-09-01] MEDS: CELECOXIB 200 MG CAPSULE PO SCH ×2 (10:06→21:29)
[2017-09-01] MEDS: PANTOPRAZOLE 20 MG TABLET (FP) PO SCH (10:06)
[2017-09-01] MEDS: FOLIC ACID 1 MG TABLET (FP) PO SCH (10:06)
[2017-09-01] MEDS: NEBIVOLOL 10 MG TABLET (FP) PO SCH (10:06)
[2017-09-01] MEDS: BACITRACIN 15 GM TUBE TOPICAL OINTMENT TP SCH (10:06)
[2017-09-01] MEDS: VALSARTAN 40 MG TABLET (FP) PO SCH (10:06)
--- NOTE | 2017-09-01 11:56 | PN ---
Progress Note (short form) - Note Progress Note: Subjective: The patient was seen and examined at the bedside, she reports feeling good today Current Medications Generic Name Dose Route Start Last Admin Trade Name Alicia PRN Reason Stop Dose Admin Albuterol Sulfate 1 amp 08/29/17 21:49 08/30/17 11:10 Ventolin 0.083% Nebulizer Soln - NEB 1 amp Q6H PRN Administration ASTHMA Albuterol/Ipratropium 1 amp 08/30/17 14:00 09/01/17 07:50 Duoneb - NEB 1 amp RTID [facility] Administration Apixaban 5 mg 08/29/17 22:00 09/01/17 10:06 Eliquis - PO 5 mg BID [facility] Administration Bacitracin 1 applic 08/30/17 10:00 09/01/17 10:06 Bacitracin - TP 1 applic DAILY [facility] Administration Celecoxib 200 mg 08/29/17 22:00 09/01/17 10:06 Celebrex - PO 200 mg BID [facility] Administration Escitalopram Oxalate 10 mg 08/30/17 10:00 09/01/17 10:05 Lexapro - PO 10 mg DAILY [facility] Administration Folic Acid 1 mg 08/30/17 10:00 09/01/17 10:06 Folic Acid - PO 1 mg DAILY [facility] Administration Gabapentin 300 mg 08/29/17 22:00 09/01/17 06:20 Neurontin - PO 300 mg TID [facility] Administration Clindamycin Phosphate 300 mg in 50 mls @ 100 mls/hr 08/30/17 03:00 09/01/17 10:05 Cleocin 300 Mg Premix Ivpb IVPB 100 mls/hr Q6H-IV [facility] Administration Protocol Insulin Aspart 1 vial 08/29/17 22:00 09/01/17 11:42 Novolog Vial Sliding Scale - SQ 4 unit ACHS [facility] Administration Protocol Levothyroxine Sodium 150 mcg 08/30/17 07:00 09/01/17 06:20 Synthroid - PO 150 mcg DAILY@0700 [facility] Administration Methotrexate 20 mg 08/31/17 10:00 08/31/17 09:56 Mexate - PO 20 mg Tu@1000 [facility] Administration Montelukast Sodium 10 mg 08/29/17 22:00 08/31/17 21:11 Singulair - PO 10 mg HS [facility] Administration Nebivolol 10 mg 08/30/17 10:00 09/01/17 10:06 Bystolic - PO 10 mg DAILY [facility] Administration Non-Formulary Medication 113 mcg 08/29/17 22:00 Fluticasone Propionate [Armonair Respiclick] IH BID [facility] Nystatin 500,000 units 08/30/17 00:00 09/01/17 11:47 Nystatin Oral Suspension - PO 500,000 units Q6HPO [facility] Administration Pantoprazole Sodium 20 mg 08/30/17 10:00 09/01/17 10:06 Protonix - PO 20 mg DAILY [facility] Administration Prednisone 30 mg 08/31/17 10:00 09/01/17 10:06 Deltasone - PO 09/03/17 09:59 30 mg DAILY [facility] Administration Prednisone 20 mg 09/03/17 10:00 Deltasone - PO 09/06/17 09:59 DAILY [facility] Prednisone 10 mg 09/06/17 10:00 Deltasone - PO DAILY [facility] Ranitidine HCl 150 mg 08/30/17 10:00 09/01/17 10:05 Zantac - PO 150 mg DAILY [facility] Administration Valsartan 40 mg 08/30/17 10:00 09/01/17 10:06 Diovan - PO 40 mg DAILY [facility] Administration Zolpidem Tartrate 5 mg 08/29/17 22:20 08/31/17 21:11 Ambien - PO 5 mg HS PRN Administration INSOMNIA Objective: Vital Signs Period Temp Pulse Resp BP Sys/Mccray Pulse Ox Last 24 Hr 98 F-99.0 F 89-102 18-20 101-148/48-83 98-99 Physical Exam: General: NAD Lungs: Diminished breath sounds b/l Heart: Irregular pulse Ext: RLE with erythema, lateral leg with area abrasion. 2+ DP/PT bilaterally CBCD WBC 16.0 K/mm3 (4.0-10.0) H 09/01/17 06:20 RBC 3.23 M/mm3 (3.60-5.2) L 09/01/17 06:20 Hgb 10.2 GM/dL (10.7-15.3) L 09/01/17 06:20 Hct 31.9 % (32.4-45.2) L 09/01/17 06:20 MCV 98.9 fl (80-96) H 07/04/18 06:20 MCHC 32.1 g/dl (32.0-36.0) 09/01/17 06:20 RDW 16.6 % (11.6-15.6) H 09/01/17 06:20 Plt Count 167 K/MM3 (134-434) 09/01/17 06:20 MPV 9.5 fl (7.5-11.1) 09/01/17 06:20 CMP Sodium 137 mmol/L (136-145) 09/01/17 06:20 Potassium 5.2 mmol/L (3.5-5.1) H 09/01/17 06:20 Chloride 94 mmol/L (98-107) L 09/01/17 06:20 Carbon Dioxide 36 mmol/L (21-32) H 09/01/17 06:20 Anion Gap 7 (8-16) L 09/01/17 06:20 BUN 32 mg/dL (7-18) H 09/01/17 06:20 Creatinine 1.0 mg/dL (0.55-1.02) 09/01/17 06:20 Creat Clearance w eGFR 52.20 (>60) 09/01/17 06:20 Random Glucose 155 mg/dL (74-106) H 09/01/17 06:20 Calcium 8.4 mg/dL (8.5-10.1) L 09/01/17 06:20 Total Bilirubin 0.5 mg/dL (0.2-1.0) 09/01/17 06:20 AST 25 U/L (15-37) 09/01/17 06:20 ALT 56 U/L (12-78) 09/01/17 06:20 Alkaline Phosphatase 110 U/L (45-117) D 09/01/17 06:20 Total Protein 5.5 g/dl (6.4-8.2) L 09/01/17 06:20 Albumin 2.7 g/dl (3.4-5.0) L 09/01/17 06:20 Microbiology 08/29/17 16:45 Blood - Peripheral Venous Blood Culture - Preliminary NO GROWTH OBTAINED AFTER 48 HOURS, INCUBATION TO CONTINUE FOR 3 DAYS. 08/29/17 16:45 Blood - Peripheral Venous Blood Culture - Preliminary NO GROWTH OBTAINED AFTER 48 HOURS, INCUBATION TO CONTINUE FOR 3 DAYS. Assessment: This is an 87 year old female with multiple medical problems including COPD, CHF, RA who was recently hospitalized here 08/19-08/27 for COPD exacerbation who presented to the ED with lethargy, weakness and redness to RLE Plan: 1) RLE cellulitis - Continue Clindamycin - Appears to be improving - Remains afebrile 2) Chronic diastolic heart failure - No evidence of acute exacerbation at this time - Continue home medications 3) A.fib - Continue Eliquis 4) COPD - Continue Prednisone taper - Leukocytosis likely reactive to steroids, trending down 5) Dispo: - Awaiting insurance auth to discharge to SNF Visit type - Emergency Visit Emergency Visit: Yes ED Registration Date: 08/29/17 Care time: The patient presented to the Emergency Department on the above date and was hospitalized for further evaluation of their emergent condition. - New Patient This patient is new to me today: No - Critical Care Critical Care patient: No
[2017-09-01] MEDS: CLINDAMYCIN HCL 150 MG CAPSULE (FP) PO SCH ×2 (16:11→21:29)
[2017-09-01] MEDS: MONTELUKAST NA 10 MG TABLET PO SCH (21:28)
[2017-09-01] MEDS: ZOLPIDEM TARTRATE 5 MG TABLET PO PRN (21:28)
[2017-09-02] MEDS: NYSTATIN 500,000 UNITS/5 ML SUSPENSION PO SCH ×4 (01:21→17:27)
[2017-09-02] MEDS: GABAPENTIN 300 MG CAPSULE (FP) PO SCH ×2 (06:16→13:25)
[2017-09-02] MEDS: CLINDAMYCIN HCL 150 MG CAPSULE (FP) PO SCH ×2 (06:16→13:24)
[2017-09-02] MEDS: INSULIN SLIDING SCALE (NOVOLOG) 1 VIAL SQ SCH ×3 (06:17→17:37)
[2017-09-02] MEDS: LEVOTHYROXINE NA 150 MCG TABLET PO SCH (06:17)
[2017-09-02 07:39] LABS: BASO % 0.1 % (0-2.0); EOS % 0.3 % (0-4.5); HEMATOCRIT 34.7 % (32.4-45.2); HEMOGLOBIN 11.1 GM/dL (10.7-15.3); LYMPH % 5.1 % (8-40); MCH 31.7 pg (25.7-33.7); MEAN CELL VOLUME 99.1 fl (80-96); MEAN PLT VOLUME 9.1 fl (7.5-11.1); MONO % 4.8 % (3.8-10.2); NEUT % 89.7 % (42.8-82.8); PLATELET COUNT 202 K/MM3 (134-434); RDW 16.3 % (11.6-15.6)
[2017-09-02] MEDS: ALBUTEROL SO4 2.5/IPRATROPIUM 0.5 INH SOL 3 ML VIAL.NEB. NEB SCH ×2 (07:40→13:50)
[2017-09-02 07:52] LABS: ANION GAP 7 (8-16); BLOOD UREA NITROGEN 35 mg/dL (7-18); CALCIUM 9.1 mg/dL (8.5-10.1); CHLORIDE 94 mmol/L (98-107); CO2 36 mmol/L (21-32); GLUCOSE,RANDOM 113 mg/dL (74-106); POTASSIUM 5.2 mmol/L (3.5-5.1); SGOT/AST 36 U/L (15-37); SGPT/ALT 66 U/L (12-78); SODIUM 137 mmol/L (136-145)
[2017-09-02 07:53] LABS: ALK PHOS 123 U/L (45-117); BILIRUBIN,TOTAL 0.6 mg/dL (0.2-1.0); TOT PROT 6.1 g/dl (6.4-8.2)
[2017-09-02] MEDS ORDERED: PT OWN MED DRAWER 7, Y5N ONE (09:59)
[2017-09-02] MEDS: NEBIVOLOL 10 MG TABLET (FP) PO SCH (10:01)
[2017-09-02] MEDS: CELECOXIB 200 MG CAPSULE PO SCH (10:01)
[2017-09-02] MEDS: predniSONE 10 MG TABLET (UD) PO SCH (10:01)
[2017-09-02] MEDS: VALSARTAN 40 MG TABLET (FP) PO SCH (10:02)
[2017-09-02] MEDS: PANTOPRAZOLE 20 MG TABLET (FP) PO SCH (10:02)
[2017-09-02] MEDS: ESCITALOPRAM OXALATE 10 MG TABLET (FP) PO SCH (10:02)
[2017-09-02] MEDS: APIXABAN 5 MG TABLET PO SCH (10:02)
[2017-09-02] MEDS: FOLIC ACID 1 MG TABLET (FP) PO SCH (10:02)
[2017-09-02] MEDS: RANITIDINE HCL 150 MG TABLET (FP) PO SCH (10:03)
--- NOTE | 2017-09-02 10:08 | PN ---
Progress Note (short form) - Note Progress Note: PULMONARY Denies shortness of breath, cough or wheezing. Vital Signs Period Temp Pulse Resp BP Sys/Mccray Pulse Ox Last 24 Hr 97.6 F-98.7 F 84-93 18-20 113-141/57-86 99-100 Gen: NAD at rest Heart: RRR Lung: decreased breath sounds at the bases Abd: soft, nontender Ext: no edema, RLE lac CBC, BMP 09/02/17 06:20 09/02/17 06:20 Active Medications Albuterol Sulfate (Ventolin 0.083% Nebulizer Soln -) 1 amp NEB Q6H PRN PRN Reason: ASTHMA Last Admin: 08/30/17 11:10 Dose: 1 amp Albuterol/Ipratropium (Duoneb -) 1 amp NEB RTID [facility] Last Admin: 09/02/17 07:40 Dose: 1 amp Apixaban (Eliquis -) 5 mg PO BID [facility] Last Admin: 09/02/17 10:02 Dose: 5 mg Bacitracin (Bacitracin -) 1 applic TP DAILY [facility] Last Admin: 09/01/17 10:06 Dose: 1 applic Celecoxib (Celebrex -) 200 mg PO BID [facility] Last Admin: 09/02/17 10:01 Dose: 200 mg Clindamycin HCl (Cleocin -) 300 mg PO TID [facility] Last Admin: 09/02/17 06:16 Dose: 300 mg Escitalopram Oxalate (Lexapro -) 10 mg PO DAILY [facility] Last Admin: 09/02/17 10:02 Dose: 10 mg Folic Acid (Folic Acid -) 1 mg PO DAILY [facility] Last Admin: 09/02/17 10:02 Dose: 1 mg Gabapentin (Neurontin -) 300 mg PO TID [facility] Last Admin: 09/02/17 06:16 Dose: 300 mg Insulin Aspart (Novolog Vial Sliding Scale -) 1 vial SQ ACHS [facility]; Protocol Last Admin: 09/02/17 06:17 Dose: Not Given Levothyroxine Sodium (Synthroid -) 150 mcg PO DAILY@0700 [facility] Last Admin: 09/02/17 06:17 Dose: 150 mcg Methotrexate (Mexate -) 20 mg PO Tu@1000 [facility] Last Admin: 08/31/17 09:56 Dose: 20 mg Montelukast Sodium (Singulair -) 10 mg PO HS [facility] Last Admin: 09/01/17 21:28 Dose: 10 mg Nebivolol (Bystolic -) 10 mg PO DAILY [facility] Last Admin: 09/02/17 10:01 Dose: 10 mg Nystatin (Nystatin Oral Suspension -) 500,000 units PO Q6HPO [facility] Last Admin: 09/02/17 06:16 Dose: 500,000 units Pantoprazole Sodium (Protonix -) 20 mg PO DAILY [facility] Last Admin: 09/02/17 10:02 Dose: 20 mg Prednisone (Deltasone -) 30 mg PO DAILY [facility] Stop: 09/03/17 09:59 Last Admin: 09/02/17 10:01 Dose: 30 mg Prednisone (Deltasone -) 20 mg PO DAILY [facility] Stop: 09/06/17 09:59 Prednisone (Deltasone -) 10 mg PO DAILY [facility] Ranitidine HCl (Zantac -) 150 mg PO DAILY [facility] Last Admin: 09/02/17 10:03 Dose: 150 mg Valsartan (Diovan -) 40 mg PO DAILY [facility] Last Admin: 09/02/17 10:02 Dose: 40 mg A/P COPD Atrial Fibrillation LV Diastolic Dysfunction HTN DM Hypothyroidism h/o Breast Ca Rheumatoid Arthritis - continue inhaled bronchodilators standing and PRN - continue prednisone taper down to her home dose of 10mg for her RA - O2 to keep SpO2 >90% - rehab/PT - rate controlled - continue anticoagulation - d/c planning Problem List - Problems (1) Weakness Code(s): R53.1 - WEAKNESS (2) A-fib Code(s): I48.91 - UNSPECIFIED ATRIAL FIBRILLATION Qualifiers: Atrial fibrillation type: persistent Qualified Code(s): I48.1 - Persistent atrial fibrillation (3) CAD (coronary artery disease) Code(s): I25.10 - ATHSCL HEART DISEASE OF [place] CORONARY ARTERY W/O ANG PCTRS Qualifiers: Coronary Disease-Associated Artery/Lesion type: [place] artery [place] vs. transplanted heart: [place] heart Associated angina: without angina Qualified Code(s): I25.10 - Atherosclerotic heart disease of [place] coronary artery without angina pectoris (4) Diastolic CHF Code(s): I50.30 - UNSPECIFIED DIASTOLIC (CONGESTIVE) HEART FAILURE Qualifiers: Heart failure chronicity: chronic Qualified Code(s): I50.32 - Chronic diastolic (congestive) heart failure (5) Hypertension Code(s): I10 - ESSENTIAL (PRIMARY) HYPERTENSION (6) Hypothyroidism Code(s): E03.9 - HYPOTHYROIDISM, UNSPECIFIED Qualifiers: Hypothyroidism type: unspecified Qualified Code(s): E03.9 - Hypothyroidism , unspecified (7) Rheumatoid arthritis Code(s): M06.9 - RHEUMATOID ARTHRITIS, UNSPECIFIED Qualifiers: Rheumatoid arthritis location: unspecified site
[2017-09-02] MEDS: BACITRACIN 15 GM TUBE TOPICAL OINTMENT TP SCH (16:41)
--- NOTE | 2017-09-02 16:56 | DS ---
Physical Examination Vital Signs: Vital Signs Temperature 98.2 F 09/02/17 15:36 Pulse Rate 79 09/02/17 15:36 Respiratory Rate 18 09/02/17 15:36 Blood Pressure 147/85 09/02/17 15:36 O2 Sat by Pulse Oximetry (%) 100 09/02/17 05:00 Labs: CBC, BMP 09/02/17 06:20 09/02/17 06:20 Discharge Summary Reason For Visit: SHORTNESS OF BREATH,AMBULATORY DYSFUNCTION Current Active Problems Acute exacerbation of chronic obstructive pulmonary disease (COPD) (Acute) Impaired ambulation (Acute) Condition: Improved - Instructions Diet, Activity, Other Instructions: Please return to the ED with new, persistent, or worsening symptoms. Please follow-up with providers as indicated. Referrals: Beatriz Simms MD [Primary Care Provider] - 1 Week Berry Molina MD, MD [Staff Physician] - Disposition: [facility]NS/HOME HEALTH CARE - Home Medications Comprehensive Discharge Medication List: Ambulatory Orders Albuterol 0.083% Nebulizer Delfina [Ventolin 0.083% Nebulizer Soln -] 1 amp NEB Q6H PRN #0 vial MDD 4 08/25/17 Celecoxib 200 mg PO BID #0 tab MDD 2 08/25/17 Fluticasone Propionate [Armonair Respiclick] 113 mcg IH BID 30 Days #1 [email or web address] MDD 2 08/25/17 Nystatin Oral Suspension - [Nystatin Oral Susp 159235 Units/5 ML -] 5 ml PO ASDIR #0 tsp MDD 4 08/25/17 Prednisone See Taper PO DAILY #21 tablet MDD 4 08/25/17 Ranitidine [Zantac -] 300 mg PO DAILY #0 tab MDD 1 08/25/17 Umeclidinium Brm/Vilanterol Tr [Anoro Ellipta 62.5-25 Mcg INH] 1 each IH DAILY # 0 puff MDD 1 08/25/17 Valsartan 40 mg PO DAILY #0 tab 08/25/17 Zolpidem Tartrate [Ambien] 10 mg PO HS #0 tab 08/25/17 Fluticasone Propionate [Arm[place]air Respiclick] 1 puff IH BID 08/29/17 Albuterol 2.5/Ipratropium 0.5 [Duoneb -] 1 amp NEB RTID #120 amp 09/02/17 Apixaban [Eliquis] 5 mg PO BID #60 tablet 09/02/17 Bacitracin - [Bacitracin Topical Ointment -] 1 applic TP DAILY #1 tube 09/02/17 Clindamycin [Cleocin -] 300 mg PO Q6HPO #14 capsule 09/02/17 Escitalopram Oxalate [Lexapro -] 10 mg PO DAILY #30 tab MDD 1 09/02/17 Folic Acid 1 mg PO DAILY #30 tablet MDD 1 09/02/17 Gabapentin 300 mg PO TID #90 cap 09/02/17 Levothyroxine [Synthroid -] 150 mcg PO DAILY #30 tablet MDD 1 09/02/17 Methotrexate [Mexate -] 20 mg PO Q7D #16 tablet 09/02/17 Montelukast Sodium [Singulair] 10 mg PO DAILY #30 tab MDD 1 09/02/17 Nebivolol HCl [Bystolic] 10 mg PO DAILY #30 tab MDD 1 09/02/17 Omeprazole 20 mg PO DAILY #30 cap MDD 1 09/02/17 Pulmonary Rehab 1 ea NR DAILY #1 each 09/02/17 predniSONE [Deltasone -] 10 mg PO DAILY #36 tablet 09/02/17
[2017-09-02 17:54] VITALS: BP 133/76; PULSE 85; TEMP 98.5
[2017-09-02] MEDS ORDERED: CLINDAMYCIN HCL 150 MG CAPSULE (FP) PO SCH (18:00)
[2017-09-03] MEDS ORDERED: predniSONE 20 MG TABLET (UD) PO SCH (10:00)
[2017-09-06] MEDS ORDERED: predniSONE 10 MG TABLET (UD) PO SCH (10:00)
== END 2017-09-02 18:45 | disposition home health service (06) ==
LOC: JER 15:35 → JERBED 19:03 → J8W 21:08
PROVIDERS: ADMIT Internal Medicine; ATTEND Registered Nurse
PROC: 3E03329 Introduction of Other Anti-infective into Peripheral Vein, Percutaneous Approach (ICD-10-PCS; principal; 2017-08-29)
PROC: 3E033GC Introduction of Other Therapeutic Substance into Peripheral Vein, Percutaneous Approach (ICD-10-PCS; 2017-08-29)
PROC: 3E013VG Introduction of Insulin into Subcutaneous Tissue, Percutaneous Approach (ICD-10-PCS; 2017-08-29)
PROC: 3E0F7GC Introduction of Other Therapeutic Substance into Respiratory Tract, Via Natural or Artificial Opening (ICD-10-PCS; 2017-08-29)
DX: J44.1 Chronic obstructive pulmonary disease with (acute) exacerbation (principal); R26.89 Other abnormalities of gait and mobility; L03.115 Cellulitis of right lower limb; I25.10 Atherosclerotic heart disease of native coronary artery without angina pectoris; I48.1 Persistent atrial fibrillation; I11.0 Hypertensive heart disease with heart failure; I50.32 Chronic diastolic (congestive) heart failure; E11.65 Type 2 diabetes mellitus with hyperglycemia; M06.9 Rheumatoid arthritis, unspecified; E03.9 Hypothyroidism, unspecified; F41.9 Anxiety disorder, unspecified; F32.9 Major depressive disorder, single episode, unspecified; G47.00 Insomnia, unspecified; I34.1 Nonrheumatic mitral (valve) prolapse; D64.9 Anemia, unspecified; E78.5 Hyperlipidemia, unspecified; R53.1 Weakness; M05.50 Rheumatoid polyneuropathy with rheumatoid arthritis of unspecified site; M19.90 Unspecified osteoarthritis, unspecified site; Z85.3 Personal history of malignant neoplasm of breast; Z88.0 Allergy status to penicillin; Z88.2 Allergy status to sulfonamides; Z98.61 Coronary angioplasty status; Z79.01 Long term (current) use of anticoagulants
CPT/HCPCS: 36415; 71045-TC-FY; 73590-TC-RT-FY; 80048; 80053; 81003; 81015; 82962; 82977; 83735; 84100; 85025; 87040; 93005; 93010; 94640; 97116-GP; 97161-GP; 99285-25; G0378; J7620; J8610